=== PATIENT | female | born 1965 ===

== ENCOUNTER 2020-01-19 10:32 | Outpatient (REF) | payer OTHER, SELFPAY ==
--- NOTE | 2020-01-19 10:38 | EMG_ITS ---
HISTORY OF PRESENT ILLNESS: This is a 54-year-old woman with bilateral hand pain and numbness, left worse than right for about 2 years. She is on no medications. PHYSICAL EXAMINATION: On examination, she is alert and oriented with normal intellectual functions. Cranial nerves II through XII are normal. Muscle tone and strength are normal in all 4 extremities. No Tinel or Phalen sign. IMPRESSION: Rule out carpal tunnel syndrome. NERVE CONDUCTION EMG STUDY: Normal electrodiagnostic study of both upper extremities with no evidence of nerve entrapment or carpal tunnel syndrome. Normal EMG of the left C5 through T1 innervated muscles. MD KATT Dykes/SAUL / [id number]
== END 2020-01-19 10:33 | disposition home or self-care (01) ==
LOC: HO.NEURO 10:32
PROVIDERS: PCP Internal Medicine; Visit Provider Internal Medicine
DX: R20.0 Anesthesia of skin (principal)
CPT/HCPCS: 95860; 95886; 95913

== ENCOUNTER 2020-02-10 10:00 | Outpatient (RCR) | payer OTHER, SELFPAY ==
--- NOTE | 2020-03-06 10:03 | MHC.PT.DC ---
[facility] [place] Office [place] Office [place] Office [address] [place] [address] [phone] F: [phone] F: [phone] F: [phone] F: [phone] Physical Therapy Discharge Report Diagnosis: LEFT SI DYSFUNCTION Date of Surgery: Date of Evaluation: 10/07/19 Date of Discharge: 02/11/20 Treatments to Date: 18 Cancellations to Date: 4 No Shows to Date: 1 Discharge Status: Achieved Goals Improved Function Independent with HEP Discharge Summary: GIFTY MET ALL GOALS OF PT. 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 SHE IS DISCHARGED FROM OUR SERVICES AT THIS TIME. Electronically signed by: SHELL HILARIO PT, DPT Please sign and return to therapist. Thank you for your referral.
== END 2020-03-06 10:24 | disposition other institution (70) ==
LOC: HO.PT 10:00
PROVIDERS: PCP Internal Medicine; Visit Provider Internal Medicine
DX: M54.42 Lumbago with sciatica, left side (principal); G89.29 Other chronic pain
CPT/HCPCS: 97014; 97110; 97140; 97530

== ENCOUNTER 2020-03-02 09:32 | Outpatient (REF) | payer OTHER, SELFPAY ==
--- NOTE | 2020-03-02 10:00 | XR_ITS ---
EXAMINATION: XR SHOULDER, LEFT CLINICAL INFORMATION: Left shoulder pain. COMPARISON: None TECHNIQUE: AP external rotation, Grashey, scapular Y, and axillary views of the left shoulder. FINDINGS: Alignment is normal at the acromioclavicular and glenohumeral joints. There is a very small subchondral cyst of the distal clavicle. No significant degenerative change at the acromioclavicular joint. No hook-shaped acromion or acromiohumeral distance narrowing. The glenohumeral joint space is preserved. No glenohumeral arthritic deformity, fracture or subluxation. Minimal enthesophyte formation of the greater tuberosity the humerus. There is a 0.2 cm focus of calcification in the region of supraspinatus tendon insertion. On the AP view, 0.2 cm round focus of calcification projects over the superior aspect of the glenohumeral joint. The visualized portion of the lung is clear. XR/XR shoulder LT min 2V IMPRESSION: * No fracture or malalignment at the left shoulder. * Minimal enthesophyte formation of the greater tuberosity of the humerus. This can be a finding observed in association with rotator cuff tendinopathy. Also, there is a very small focus of calcium deposition in the region of the supraspinatus tendon insertion (minimal calcific tendinopathy is suspected).
--- NOTE | 2020-03-02 10:00 | XR_ITS ---
EXAMINATION: XR CERVICAL SPINE CLINICAL INFORMATION: Pain/cervicalgia COMPARISON: Cervical spine radiographs from 11/03/2015 TECHNIQUE: 3 views of the cervical spine were obtained. FINDINGS: The craniocervical junction is normal. The dens and atlantodental articulation are intact. The cervical vertebra have normal height. Alignment is normal. No fracture, subluxation or prevertebral soft tissue swelling. The spinal curvature is normal. At C5-C6, there is mild degenerative disc space narrowing and vertebral osteophyte formation. Otherwise, the disc spaces are well-preserved in the cervical spine. The visualized lung apices are normal. XR/XR cervical spine 3V IMPRESSION: * No fracture or malalignment of the cervical spine. * Mild disc degenerative change at C5-C6.
[2020-03-02 10:12] LABS: MANUAL DIFF FLAG NO
[2020-03-02 10:19] LABS: Basophils Absolute Auto 0.1 X10*3/uL (0.0-0.2); Basophils Percent Auto 0.8 % (0-2); Eosinophils Absolute Auto 0.5 X10*3/uL (0.0-0.4); Eosinophils Percent Auto 6.2 % (0-4); Hemoglobin 11.9 g/dl (12.0-16.0); Imm Gran Abs Auto 0.03 X10*3/uL (0.00-0.03); Imm Gran Pct Auto 0.4 % (0.0-0.4); Lymphocytes Absolute Auto 1.8 X10*3/uL (1.2-4.9); Lymphocytes Percent Auto 23.9 % (20-40); Mean Corpuscular HGB Conc 32.2 g/dl (31.0-35.0); Mean Corpuscular Hemoglobin 27.5 pg (27.0-33.0); Mean Corpuscular Volume 85.5 fL (80-98); Monocytes Absolute Auto 0.5 X10*3/uL (0.1-1.2); Monocytes Percent Auto 6.5 % (2-11); Neutrophils Absolute Auto 4.6 X10*3/uL (2.0-8.3); Neutrophils Percent Auto 62.2 % (45-73); Platelet Count 296 X10*3/uL (160-400); Red Blood Count 4.33 X10*6/uL (4.20-5.50); Red Cell Distribution Width 13.2 % (11.0-16.0); White Blood Count 7.4 X10*3/uL (4.8-10.8)
[2020-03-02 10:36] LABS: Alanine Aminotransferase 35 U/L (0-31); Albumin Level 4.6 g/dL (3.5-5.0); Alkaline Phosphatase 77 U/L (39-117); Anion Gap 12 (12-20); Aspartate Amino Transferase 21 U/L (5-31); Bilirubin Total 0.4 mg/dL (0.0-1.0); Blood Urea Nitrogen 13 mg/dL (9-16); C Reactive Protein 0.16 mg/dL (< or = 0.50); Calcium 9.1 mg/dL (8.4-10.2); Carbon Dioxide 29 mmol/L (22-29); Chloride 104 mmol/L (96-108); Cholesterol 221 mg/dL; Estimated Glomerular Filt Rate > 60; Glucose Fasting 96 mg/dL (60-99); HDL Cholesterol 67 mg/dL; Iron 75 mcg/dL (30-160); LDL Cholesterol Calculated 142 mg/dl; Percent Iron Saturation 22 % (15-50); Sodium 141 mmol/L (135-145); Total Iron Binding Capacity 348 mcg/dL (228-428); Total Protein 7.6 g/dL (6.5-8.0); Triglycerides 64 mg/dL; Unsaturated Iron Binding 273 ug/dL
[2020-03-02 10:39] LABS: Glucose Urine UA NEG (NEG); Leukocyte Esterase Urine NEG (NEG); Nitrite Urine NEG (NEG); PH 7.5 (5.0-8.0); Urine Blood NEG (NEG); Urine Ketones NEG (NEG); Urine Protein NEG (NEG-TRACE)
[2020-03-02 10:46] LABS: Appearance Urine CLEAR; Color Urine YELLOW
[2020-03-02 11:05] LABS: TSH reflex Free T4 2.96 mIU/mL (0.32-4.0)
[2020-03-02 11:09] LABS: Erythrocyte Sedimentation Rate 14 MM/HR (0-20)
== END 2020-03-02 09:33 | disposition home or self-care (01) ==
LOC: HO.LAB 09:32
PROVIDERS: PCP Internal Medicine; Visit Provider Internal Medicine
DX: Z00.00 Encounter for general adult medical examination without abnormal findings (principal); E78.00 Pure hypercholesterolemia, unspecified; D50.9 Iron deficiency anemia, unspecified; M54.2 Cervicalgia; M25.512 Pain in left shoulder; M19.042 Primary osteoarthritis, left hand; M19.041 Primary osteoarthritis, right hand; M54.16 Radiculopathy, lumbar region; M51.36 Other intervertebral disc degeneration, lumbar region
CPT/HCPCS: 36415; 72040; 73030; 80053; 80061; 81003; 83540; 84443; 85025; 85652; 86140

== ENCOUNTER → 2020-03-03 13:44 | Outpatient (BNVA) | payer OTHER, SELFPAY | PROVIDERS: PCP Internal Medicine; Referring Provider Internal Medicine; Visit Provider Student in an Organized Health Care Education/Training Program | DX: M19.042 Primary osteoarthritis, left hand (principal); M19.041 Primary osteoarthritis, right hand; R76.8 Other specified abnormal immunological findings in serum | CPT/HCPCS: 99202 ==

== ENCOUNTER 2020-03-06 10:20 | Outpatient (REF) | payer OTHER, SELFPAY ==
[2020-03-06 11:59] LABS: C Reactive Protein 0.12 mg/dL (< or = 0.50)
[2020-03-06 12:37] LABS: Erythrocyte Sedimentation Rate 14 MM/HR (0-20)
[2020-03-07 11:17] LABS: Thyroglobulin Antibodies 9 IU/mL (< or = 1)
[2020-03-07 14:03] LABS: Complement C3 115 mg/dL (83-193)
[2020-03-07 15:13] LABS: Cyclic Citrullinated Peptide <16 UNITS
[2020-03-07 17:33] LABS: Thyroid Peroxidase Antibodies 38 IU/mL (<9)
[2020-03-08 15:32] LABS: Anti DNA DS Antibody 4 IU/mL; Antibody to SS-A Antigen <1.0 NEG AI (<1.0 NEG); Antibody to SS-B Antigen <1.0 NEG AI (<1.0 NEG); SM/Ribonucleoprotein Ab <1.0 NEG AI (<1.0 NEG); Scleroderma 70 Antibody <1.0 NEG AI (<1.0 NEG); Smith Protein <1.0 NEG AI (<1.0 NEG)
== END 2020-03-06 10:21 | disposition home or self-care (01) ==
LOC: HO.LAB 10:20
PROVIDERS: PCP Internal Medicine; Visit Provider Student in an Organized Health Care Education/Training Program
DX: R76.8 Other specified abnormal immunological findings in serum (principal)
CPT/HCPCS: 36415; 85652; 86140; 86160; 86200; 86225; 86235; 86376; 86800

== ENCOUNTER 2020-03-13 17:04 | Outpatient (REF) | payer OTHER, SELFPAY | END 2020-03-13 17:05 | disposition home or self-care (01) | LOC: HO.LAB 17:04 | PROVIDERS: Visit Provider Internal Medicine | DX: Z20.828 Contact with and (suspected) exposure to other viral communicable diseases (principal) | CPT/HCPCS: C9803; U0003 ==

== ENCOUNTER → 2020-03-21 08:57 | Outpatient (BNVA) | payer OTHER, SELFPAY | PROVIDERS: PCP Internal Medicine; Referring Provider Internal Medicine; Visit Provider Student in an Organized Health Care Education/Training Program | DX: Z76.89 Persons encountering health services in other specified circumstances (principal) ==

== ENCOUNTER → 2020-04-05 10:35 | Outpatient (BNVA) | payer OTHER, SELFPAY | PROVIDERS: PCP Internal Medicine; Visit Provider Anesthesiology | DX: M19.041 Primary osteoarthritis, right hand (principal); M19.042 Primary osteoarthritis, left hand; M25.512 Pain in left shoulder; M79.18 Myalgia, other site; M47.812 Spondylosis without myelopathy or radiculopathy, cervical region; M46.1 Sacroiliitis, not elsewhere classified | CPT/HCPCS: 99202 ==

== ENCOUNTER 2020-04-14 08:48 | Outpatient (REF) | payer OTHER, SELFPAY ==
--- NOTE | 2020-04-14 08:50 | MR_ITS ---
EXAMINATION: MR CERVICAL SPINE WITHOUT CONTRAST CLINICAL INFORMATION: Spondylosis with myelopathy or radiculopathy. COMPARISON: Cervical spine 01/01/2020 TECHNIQUE: MRI of the cervical spine was obtained using routine sequences without contrast. FINDINGS: There is normal cervical lordosis. The vertebral heights, alignment, disc heights, and the disc signal are normal. The craniovertebral junction is normal. There is mild hypertrophic spurring at the C1-C2 alignment. The C2-C3 disc level appears unremarkable. At C3-C4 disc level, there is a minimal posterior disc protrusion/spondylosis complex indenting the ventral thecal sac but no herniation or spinal stenosis. There are minimal hypertrophic changes bilaterally with mild narrowing of left neural foramina. At C4-C5 disc level, there is a mild disc-osteophyte complex flattening the ventral thecal sac without spinal canal stenosis. The neural foramina are patent bilaterally. At C5-C6 disc level, there is a moderate bilateral disc-osteophyte/minimal bulge complex effacing the ventral thecal sac. There is mild bilateral narrowing of the neural foramina, left greater than right, from uncovertebral hypertrophic changes. At C6-C7 disc level, there is minimal bulge flattening the ventral thecal sac without spinal canal stenosis. The neural foramina are patent bilaterally. The C7-T1 disc level appears unremarkable. The cord signal, cord caliber and cervicomedullary junction are normal. The paravertebral soft tissues are normal. Both vertebral arteries and the carotid arteries appear patent based on flow void signal. MR/MR cervical spine wo con IMPRESSION: Mild disc bulge/osteophyte complex C4-C5, C5-C6 disc levels with mild effacement of ventral thecal sac at the C5-C6 disc level. There is bilateral narrowing of the neural foramina at these 2 disc levels and mild narrowing of the left neural foramina at C3-C4 disc level from uncovertebral hypertrophic changes. There is no abnormality seen in the cord or the cervicomedullary junction.
== END 2020-04-14 08:49 | disposition home or self-care (01) ==
LOC: HO.MRI 08:48
PROVIDERS: Visit Provider Anesthesiology
DX: M47.812 Spondylosis without myelopathy or radiculopathy, cervical region (principal)
CPT/HCPCS: 72141

== ENCOUNTER 2020-04-25 07:39 | Outpatient (REF) | payer OTHER, SELFPAY | END 2020-04-25 07:40 | disposition home or self-care (01) | LOC: HO.RADIR 07:39 | PROVIDERS: Visit Provider Anesthesiology | DX: Z13.89 Encounter for screening for other disorder (principal) ==

== ENCOUNTER 2020-05-02 06:59 | Outpatient (REF) | payer OTHER, SELFPAY | END 2020-05-02 07:00 | disposition home or self-care (01) | LOC: HO.RADIR 06:59 | PROVIDERS: Visit Provider Anesthesiology | DX: Z13.89 Encounter for screening for other disorder (principal) ==

== ENCOUNTER → 2020-05-03 08:44 | Outpatient (BNVA) | payer OTHER, SELFPAY | PROVIDERS: PCP Internal Medicine; Visit Provider Anesthesiology | DX: M19.041 Primary osteoarthritis, right hand (principal); M19.042 Primary osteoarthritis, left hand; M25.512 Pain in left shoulder; M79.18 Myalgia, other site; M47.812 Spondylosis without myelopathy or radiculopathy, cervical region; M46.1 Sacroiliitis, not elsewhere classified | CPT/HCPCS: 20552; 99212; J3300 ==

== ENCOUNTER → 2020-06-15 11:26 | Outpatient (BNVA) | payer OTHER, SELFPAY | PROVIDERS: PCP Internal Medicine; Visit Provider Anesthesiology | DX: M47.812 Spondylosis without myelopathy or radiculopathy, cervical region (principal); M19.041 Primary osteoarthritis, right hand; M19.042 Primary osteoarthritis, left hand; M25.512 Pain in left shoulder; M79.18 Myalgia, other site; M46.1 Sacroiliitis, not elsewhere classified; Z79.899 Other long term (current) drug therapy | CPT/HCPCS: 99212 ==

== ENCOUNTER 2020-06-20 10:00 | Outpatient (RCR) | payer OTHER, SELFPAY ==
--- NOTE | 2020-05-11 11:22 | MHC.PT.EP ---
[facility] [place] Office [place] Office [place] Office [address] [place] [address] [phone] F: [phone] F: [phone] F: [phone] F: [phone] Physical Therapy Plan of Care Date of Evaluation: 05/11/20 Date of Surgery: Diagnosis: left trapezius muscle on left side Assessment: The patient is presenting with limited cervical mobility, shoulder mobility and reduced shoulder strength consistent with a posterolateral derangement. Pt has recent MRI imaging that also shows a moderate osteophyte/disc complex causing neural foraminal narrowing. The patient currently shows poor sitting posture, and reports looking down for extended periods during cooking or looking at phone. Pt was educated on improving sitting posture and limiting looking down. Frequency and Duration: The patient will be seen 2x/week x 4 weeks Short Term Goals: 2 weeks 1.Pt to able to demonstrate proper sitting posture with the use of a lumbar roll to decrease aggravating factors. 2.Pt to be able to demonstrate proper posture for common leisure activities such as crocheting and phone/tablet use. 3.For the patient to demonstrate proper upright sitting posture with use of the lumbar roll to improve compliance and carryover. Longterm Goals: 1. Pt to be able to return to normal PLOF without limiting pain. 2. Pt to be able to return to overhead reaching without pain or limitation. 3. Pt to be able to manage her pain with selected exercise and stretching regime. Treatment Plan: Modalities to reduce pain, spasms and effusion. Manual therapy to restore motion and function. Therapeutic exercise to improve strength and flexibility. Neuromuscular re-education for posture and balance. Therapeutic activities to return to functional activities of daily living. Electronically signed by: Lenka Delong PT DPT Please sign and return to therapist. Thank you for your referral.
--- NOTE | 2020-06-20 12:33 | MHC.PT.DC ---
[facility] [place] Office [place] Office [place] Office [address] [place] [address] [phone] F: [phone] F: [phone] F: [phone] F: [phone] Physical Therapy Discharge Report Diagnosis: left trapezius muscle on left side Date of Surgery: Date of Evaluation: 05/11/20 Date of Discharge: 06/20/20 Treatments to Date: 9 Cancellations to Date: No Shows to Date: Discharge Status: Achieved Goals Improved Function Independent with HEP Discharge Summary: pt tolerated full program without added pain. The patient is independent with her HEP and she reports, I do it all at home She had symmetrical shoulder ROM that was WNL and her cervical ROM was greater than 60 degrees bilaterally. She has reached maximum potential in therapy and will transition to a HEP. Electronically signed by: Lenka Delong PT DPT Please sign and return to therapist. Thank you for your referral.
== END 2020-07-21 08:00 | disposition home or self-care (01) ==
LOC: HO.PT 10:00
PROVIDERS: PCP Internal Medicine; Visit Provider Anesthesiology
DX: M79.18 Myalgia, other site (principal)
CPT/HCPCS: 97110; 97112; 97162

== ENCOUNTER 2020-07-25 06:07 | Outpatient (REF) | payer OTHER, SELFPAY ==
--- NOTE | ~2020-07-25 | FL_ITS ---
EXAMINATION: XR FLUOROSCOPY WITH IMAGES CLINICAL INFORMATION: Sacroiliitis. COMPARISON: None. TECHNIQUE: Fluoroscopy performed by Shayla Lewis NP. Fluoroscopy time: 0.1 minutes DAP: 1.8 Gycm2 Images: 1 FINDINGS: Single fluoroscopic image demonstrates needle placement over the left lower sacroiliac joint. FL/FL guidance in treatment room IMPRESSION: Fluoroscopy guidance for left sacroiliac joint injection.
== END 2020-07-25 06:08 | disposition home or self-care (01) ==
LOC: HO.RADIR 06:07
PROVIDERS: Visit Provider Anesthesiology
DX: M46.1 Sacroiliitis, not elsewhere classified (principal)
CPT/HCPCS: 27096; J3300; Q9967

== ENCOUNTER 2020-08-23 09:24 | Outpatient (REF) | payer OTHER, SELFPAY ==
[2020-08-23 09:52] LABS: MANUAL DIFF FLAG NO
[2020-08-23 10:03] LABS: Basophils Absolute Auto 0.1 X10*3/uL (0.0-0.2); Eosinophils Absolute Auto 0.4 X10*3/uL (0.0-0.4); Hematocrit 36.7 % (37-47); Hemoglobin 11.6 g/dl (12.0-16.0); Imm Gran Abs Auto 0.02 X10*3/uL (0.00-0.03); Imm Gran Pct Auto 0.3 % (0.0-0.4); Lymphocytes Absolute Auto 1.6 X10*3/uL (1.2-4.9); Lymphocytes Percent Auto 26.9 % (20-40); Mean Corpuscular HGB Conc 31.6 g/dl (31.0-35.0); Mean Corpuscular Hemoglobin 27.2 pg (27.0-33.0); Mean Corpuscular Volume 85.9 fL (80-98); Mean Platelet Volume 10.1 fL (9.4-12.3); Monocytes Absolute Auto 0.4 X10*3/uL (0.1-1.2); Neutrophils Absolute Auto 3.5 X10*3/uL (2.0-8.3); Neutrophils Percent Auto 57.8 % (45-73); Platelet Count 252 X10*3/uL (160-400); Red Blood Count 4.27 X10*6/uL (4.20-5.50); Red Cell Distribution Width 13.2 % (11.0-16.0)
[2020-08-23 10:36] LABS: Alanine Aminotransferase 20 U/L (0-31); Albumin Level 4.3 g/dL (3.5-5.0); Alkaline Phosphatase 66 U/L (39-117); Anion Gap 12 (12-20); Aspartate Amino Transferase 16 U/L (5-31); Bilirubin Total 0.6 mg/dL (0.0-1.0); Blood Urea Nitrogen 14 mg/dL (9-16); Calcium 9.3 mg/dL (8.4-10.2); Carbon Dioxide 29 mmol/L (22-29); Chloride 104 mmol/L (96-108); Cholesterol 206 mg/dL; Estimated Glomerular Filt Rate > 60; Glucose Fasting 110 mg/dL (60-99); HDL Cholesterol 58 mg/dL; Iron 60 mcg/dL (30-160); LDL Cholesterol Calculated 131 mg/dl; Percent Iron Saturation 20 % (15-50); Potassium 4.5 mmol/L (3.3-5.1); Sodium 140 mmol/L (135-145); Total Iron Binding Capacity 299 mcg/dL (228-428); Total Protein 7.1 g/dL (6.5-8.0); Triglycerides 89 mg/dL; Unsaturated Iron Binding 239 ug/dL
[2020-08-23 10:51] LABS: Glucose Urine UA NEG (NEG); Leukocyte Esterase Urine NEG (NEG); Nitrite Urine NEG (NEG); Specific Gravity - Urine 1.015 (1.005-1.025); Urine Blood NEG (NEG); Urine Ketones NEG (NEG); Urine Protein NEG (NEG-TRACE)
[2020-08-23 10:56] LABS: Appearance Urine CLEAR; Color Urine YELLOW; TSH reflex Free T4 3.13 uIU/mL (0.32-4.0)
== END 2020-08-23 09:25 | disposition home or self-care (01) ==
LOC: HO.LAB 09:24
PROVIDERS: PCP Internal Medicine; Visit Provider Internal Medicine
DX: D64.9 Anemia, unspecified (principal); E78.00 Pure hypercholesterolemia, unspecified; E66.3 Overweight; M51.36 Other intervertebral disc degeneration, lumbar region
CPT/HCPCS: 36415; 80053; 80061; 81003; 83540; 84443; 85025

== ENCOUNTER → 2020-08-28 10:06 | Outpatient (BNVA) | payer OTHER, SELFPAY | PROVIDERS: PCP Internal Medicine; Visit Provider Anesthesiology ==

== ENCOUNTER 2020-08-29 07:31 | Outpatient (REF) | payer OTHER, SELFPAY ==
--- NOTE | ~2020-08-29 | FL_ITS ---
EXAMINATION: XR FLUOROSCOPY WITH IMAGES CLINICAL INFORMATION: Cervical spondylosis without myelopathy or radiculopathy. COMPARISON: Radiographs dated 01/01/2020. TECHNIQUE: Fluoroscopy performed by Dr. Tommy Burton. Fluoroscopy time: 0.3 minutes DAP: 1.72 Gycm2 Images: 4 FINDINGS: The submitted images show 4 injection needles in the upper and mid lateral left cervical region. There is injection of iodinated myelography contrast, with transforaminal extension. FL/FL guidance in treatment room IMPRESSION: Intraoperative fluoroscopic guidance is performed during left cervical myelography. Please see Operative Report for full procedural details.
== END 2020-08-29 07:32 | disposition home or self-care (01) ==
LOC: HO.RADIR 07:31
PROVIDERS: Visit Provider Anesthesiology
DX: M47.812 Spondylosis without myelopathy or radiculopathy, cervical region (principal); M46.1 Sacroiliitis, not elsewhere classified; M79.18 Myalgia, other site; M19.041 Primary osteoarthritis, right hand; M19.042 Primary osteoarthritis, left hand
CPT/HCPCS: 64490; 64491; 64492; J3300; Q9967

== ENCOUNTER → 2020-10-02 10:08 | Outpatient (BNVA) | payer OTHER, SELFPAY | PROVIDERS: PCP Internal Medicine; Visit Provider Anesthesiology | DX: M47.812 Spondylosis without myelopathy or radiculopathy, cervical region (principal); M19.041 Primary osteoarthritis, right hand; M19.042 Primary osteoarthritis, left hand; M25.212 Flail joint, left shoulder; M79.18 Myalgia, other site; M46.1 Sacroiliitis, not elsewhere classified | CPT/HCPCS: 99212 ==

== ENCOUNTER → 2020-10-17 10:53 | Outpatient (BNVA) | payer OTHER, SELFPAY | PROVIDERS: PCP Internal Medicine; Visit Provider Internal Medicine Pulmonary Disease | DX: J45.50 Severe persistent asthma, uncomplicated (principal); Z91.09 Other allergy status, other than to drugs and biological substances | CPT/HCPCS: 99202 ==

== ENCOUNTER 2020-11-03 10:03 | Outpatient (REF) | payer OTHER, SELFPAY ==
[2020-11-06 19:16] LABS: Immunoglobulin E 19 kU/L (<OR=114)
== END 2020-11-03 10:04 | disposition home or self-care (01) ==
LOC: HO.LAB 10:03
PROVIDERS: PCP Internal Medicine; Visit Provider Internal Medicine Pulmonary Disease
DX: J45.40 Moderate persistent asthma, uncomplicated (principal); R07.89 Other chest pain; Z79.899 Other long term (current) drug therapy; Z91.09 Other allergy status, other than to drugs and biological substances
CPT/HCPCS: 36415; 82785; 99212

== ENCOUNTER 2020-11-28 08:55 | Outpatient (REF) | payer OTHER, SELFPAY ==
--- NOTE | 2020-11-28 15:27 | PFT_ITS ---
INDICATION: Asthma. SPIROMETRY: The FEV1 to FVC of 84% with an FEV1 of 3.6 L, which is 145% predicted and an FVC of 4.28 L, which is 138% predicted. No significant response to bronchodilators noted. Maximum voluntary ventilation 136% predicted. LUNG VOLUMES: Total lung capacity 114% predicted. Expiratory reserve volume 125% predicted. DIFFUSION CAPACITY: DLCO 102% predicted. COMPARISONS: None. INTERPRETATION: No obstructive nor restrictive ventilatory defects identified. No significant response to bronchodilators noted. Normal lung volumes and normal diffusion capacity. If asthma is in the differential, methacholine challenge may be helpful in assessing for hyper-reactive airways, otherwise clinical correlation warranted. Fabiano Zacarias MD MR/MODL / [id number]
== END 2020-11-28 08:56 | disposition home or self-care (01) ==
LOC: HO.RESP 08:55
PROVIDERS: PCP Internal Medicine; Visit Provider Internal Medicine Pulmonary Disease
DX: J45.50 Severe persistent asthma, uncomplicated (principal)
CPT/HCPCS: 94060; 94727; 94729

== ENCOUNTER 2020-11-30 10:49 | Outpatient (REF) | payer OTHER, SELFPAY | END 2020-11-30 10:50 | disposition home or self-care (01) | LOC: HO.MDS 10:49 | PROVIDERS: Visit Provider Internal Medicine Pulmonary Disease | DX: J45.50 Severe persistent asthma, uncomplicated (principal) | CPT/HCPCS: 96372; J0517 ==

== ENCOUNTER 2020-12-04 12:58 | Outpatient (REF) | payer OTHER, SELFPAY ==
--- NOTE | ~2020-12-04 | XR_ITS ---
EXAMINATION: 1. RADIOGRAPHS RIGHT HAND 2. RADIOGRAPHS LEFT HAND CLINICAL INFORMATION: Other specified abnormal immunologic findings serum. COMPARISON: Bilateral hand x-rays October 14, 2019 TECHNIQUE: 3 views of each hand were obtained FINDINGS: Right hand: Visualized portion of the distal radius and ulna demonstrate no fracture. Carpal rows are maintained. No carpal, metacarpal or phalangeal fracture. Some minimal scattered degenerative changes of the IP joints are again noted which appear relatively similar in prominence to imaging from one year ago. No focal soft tissue swelling is present. Joint spaces are maintained. Left hand: Visualized portion of the distal radius and ulna demonstrate no fracture. Carpal rows are well aligned. No carpal, metacarpal or phalangeal fracture. Some minimal scattered IP degenerative changes are again noted and appear similar in prominence. Joint spaces are well-maintained diffusely. No focal soft tissue swelling. XR/XR hand LT min 3V IMPRESSION: Minimal degenerative changes of both hands are again noted. Degenerative changes are similar in prominence to imaging from one year ago.
--- NOTE | ~2020-12-04 | XR_ITS ---
EXAMINATION: XR CHEST CLINICAL INFORMATION: Severe persistent asthma COMPARISON: Chest x-ray August 14, 2012 TECHNIQUE: 2 views of the chest were obtained. FINDINGS: Cardiac silhouette is normal in size. Lungs are well aerated. There is no lobar consolidation. No pleural effusion or pneumothorax. Mild degenerative changes of the thoracic spine. XR/XR chest 2V IMPRESSION: No acute pulmonary pathology.
--- NOTE | ~2020-12-04 | XR_ITS ---
EXAMINATION: 1. RADIOGRAPHS RIGHT HAND 2. RADIOGRAPHS LEFT HAND CLINICAL INFORMATION: Other specified abnormal immunologic findings serum. COMPARISON: Bilateral hand x-rays October 14, 2019 TECHNIQUE: 3 views of each hand were obtained FINDINGS: Right hand: Visualized portion of the distal radius and ulna demonstrate no fracture. Carpal rows are maintained. No carpal, metacarpal or phalangeal fracture. Some minimal scattered degenerative changes of the IP joints are again noted which appear relatively similar in prominence to imaging from one year ago. No focal soft tissue swelling is present. Joint spaces are maintained. Left hand: Visualized portion of the distal radius and ulna demonstrate no fracture. Carpal rows are well aligned. No carpal, metacarpal or phalangeal fracture. Some minimal scattered IP degenerative changes are again noted and appear similar in prominence. Joint spaces are well-maintained diffusely. No focal soft tissue swelling. XR/XR hand RT min 3V IMPRESSION: Minimal degenerative changes of both hands are again noted. Degenerative changes are similar in prominence to imaging from one year ago.
[2020-12-04 14:25] LABS: MANUAL DIFF FLAG NO
[2020-12-04 14:35] LABS: Hematocrit 34.6 % (37-47); Imm Gran Abs Auto 0.01 X10*3/uL (0.00-0.03); Imm Gran Pct Auto 0.2 % (0.0-0.4); Mean Corpuscular Volume 85.4 fL (80-98); Red Blood Count 4.05 X10*6/uL (4.20-5.50)
[2020-12-04 14:48] LABS: Lymphocytes Absolute Auto 1.7 X10*3/uL (1.2-4.9); Lymphocytes Percent Auto 36.9 % (20-40); Mean Corpuscular HGB Conc 31.8 g/dl (31.0-35.0); Mean Corpuscular Hemoglobin 27.2 pg (27.0-33.0); Mean Platelet Volume 10.6 fL (9.4-12.3); Monocytes Absolute Auto 0.4 X10*3/uL (0.1-1.2); Monocytes Percent Auto 7.9 % (2-11); Neutrophils Absolute Auto 2.6 X10*3/uL (2.0-8.3); Platelet Count 228 X10*3/uL (160-400); Red Cell Distribution Width 12.8 % (11.0-16.0); White Blood Count 4.7 X10*3/uL (4.8-10.8)
[2020-12-04 15:22] LABS: Erythrocyte Sedimentation Rate 16 MM/HR (0-20)
[2020-12-06 13:37] LABS: IgA <5 mg/dL (47-310); IgG 1592 mg/dL (600-1640); IgM 77 mg/dL (50-300)
[2020-12-07 21:22] LABS: Immunoglobulin G Subclass 1 754 mg/dL (382-929); Immunoglobulin G Subclass 2 578 mg/dL (241-700); Immunoglobulin G Subclass 3 152 mg/dL (22-178); Immunoglobulin G Subclass 4 19.6 mg/dL (4-86); Immunoglobulin G Total 1530 mg/dL (600-1640)
== END 2020-12-04 12:59 | disposition home or self-care (01) ==
LOC: HO.XRAY 12:58
PROVIDERS: PCP Internal Medicine; Visit Provider Hospitalist
DX: J45.51 Severe persistent asthma with (acute) exacerbation (principal); J40 Bronchitis, not specified as acute or chronic; R76.8 Other specified abnormal immunological findings in serum
CPT/HCPCS: 36415; 71046; 73130; 82784; 85025; 85652; 99212

== ENCOUNTER 2020-12-26 06:22 | Outpatient (REF) | payer OTHER, SELFPAY | END 2020-12-26 06:23 | disposition home or self-care (01) | LOC: HO.RADIR 06:22 | PROVIDERS: Visit Provider Anesthesiology | DX: M47.812 Spondylosis without myelopathy or radiculopathy, cervical region (principal); M46.1 Sacroiliitis, not elsewhere classified; M25.512 Pain in left shoulder; M79.18 Myalgia, other site; M19.041 Primary osteoarthritis, right hand; M19.042 Primary osteoarthritis, left hand | CPT/HCPCS: 64490; 64491; J3300; Q9967 ==

== ENCOUNTER → 2020-12-27 11:46 | Outpatient (BNVA) | payer OTHER, SELFPAY | PROVIDERS: PCP Internal Medicine; Visit Provider Internal Medicine Pulmonary Disease | DX: J45.51 Severe persistent asthma with (acute) exacerbation (principal); D80.2 Selective deficiency of immunoglobulin A [IgA] | CPT/HCPCS: 99212 ==

== ENCOUNTER 2020-12-28 10:32 | Outpatient (REF) | payer OTHER, SELFPAY | END 2020-12-28 10:33 | disposition home or self-care (01) | LOC: HO.MDS 10:32 | PROVIDERS: PCP Internal Medicine; Visit Provider Internal Medicine Pulmonary Disease | DX: J45.50 Severe persistent asthma, uncomplicated (principal) | CPT/HCPCS: 96372; J0517 ==

== ENCOUNTER → 2021-01-24 11:47 | Outpatient (BNVA) | payer OTHER, SELFPAY | PROVIDERS: PCP Internal Medicine; Visit Provider Internal Medicine Pulmonary Disease | DX: J45.50 Severe persistent asthma, uncomplicated (principal); D80.2 Selective deficiency of immunoglobulin A [IgA]; Z91.09 Other allergy status, other than to drugs and biological substances | CPT/HCPCS: 99212 ==

== ENCOUNTER 2021-01-25 09:00 | Outpatient (REF) | payer OTHER, SELFPAY | END 2021-01-25 09:01 | disposition home or self-care (01) | LOC: HO.MDS 09:00 | PROVIDERS: PCP Internal Medicine; Visit Provider Internal Medicine Pulmonary Disease | DX: J45.50 Severe persistent asthma, uncomplicated (principal) | CPT/HCPCS: 96372; J0517 ==

== ENCOUNTER → 2021-01-31 10:49 | Outpatient (BNVA) | payer OTHER, SELFPAY | PROVIDERS: PCP Internal Medicine; Visit Provider Anesthesiology | DX: M19.041 Primary osteoarthritis, right hand (principal); M19.042 Primary osteoarthritis, left hand; M25.512 Pain in left shoulder; M79.18 Myalgia, other site; M47.812 Spondylosis without myelopathy or radiculopathy, cervical region; M46.1 Sacroiliitis, not elsewhere classified; G89.4 Chronic pain syndrome | CPT/HCPCS: 99212 ==

== ENCOUNTER 2021-02-20 08:59 | Outpatient (REF) | payer OTHER, SELFPAY | END 2021-02-20 09:00 | disposition home or self-care (01) | LOC: HO.MDS 08:59 | PROVIDERS: PCP Internal Medicine; Visit Provider Internal Medicine Pulmonary Disease | DX: J45.50 Severe persistent asthma, uncomplicated (principal) | CPT/HCPCS: 96372; J0517 ==

== ENCOUNTER 2021-04-17 08:58 | Outpatient (REF) | payer OTHER, SELFPAY | END 2021-04-17 08:59 | disposition home or self-care (01) | LOC: HO.MDS 08:58 | PROVIDERS: PCP Internal Medicine; Visit Provider Internal Medicine Pulmonary Disease | DX: J45.51 Severe persistent asthma with (acute) exacerbation (principal); J40 Bronchitis, not specified as acute or chronic; D80.2 Selective deficiency of immunoglobulin A [IgA]; E78.00 Pure hypercholesterolemia, unspecified; Z91.09 Other allergy status, other than to drugs and biological substances; Z79.899 Other long term (current) drug therapy | CPT/HCPCS: 96372; 99212; J0517 ==

== ENCOUNTER 2021-04-24 10:16 | Outpatient (REF) | payer OTHER, SELFPAY ==
[2021-04-24 10:37] LABS: MANUAL DIFF FLAG NO
[2021-04-24 10:48] LABS: Hematocrit 36.1 % (37.0-47.0); Hemoglobin 11.3 g/dl (12.0-16.0); Imm Gran Abs Auto 0.02 X10*3/uL (0.00-0.03); Imm Gran Pct Auto 0.4 % (0.0-0.4); Lymphocytes Absolute Auto 1.8 X10*3/uL (1.2-4.9); Lymphocytes Percent Auto 36.4 % (20-40); Mean Corpuscular HGB Conc 31.3 g/dl (31.0-35.0); Mean Corpuscular Hemoglobin 26.9 pg (27.0-33.0); Mean Platelet Volume 10.2 fL (9.4-12.3); Monocytes Absolute Auto 0.4 X10*3/uL (0.1-1.2); Monocytes Percent Auto 7.8 % (2-11); Neutrophils Absolute Auto 2.7 x10*3/uL (2.0-8.3); Neutrophils Percent Auto 55.4 % (45-73); Platelet Count 237 X10*3/uL (160-400); Red Cell Distribution Width 12.6 % (11.0-16.0); White Blood Count 4.9 X10*3/uL (4.8-10.8)
[2021-04-24 11:15] LABS: Appearance Urine CLEAR; Color Urine STRAW; Glucose Urine UA NEG (NEG); Leukocyte Esterase Urine NEG (NEG); Nitrite Urine NEG (NEG); Urine Blood NEG (NEG); Urine Ketones NEG (NEG); Urine Protein NEG (NEG-TRACE)
[2021-04-24 11:28] LABS: Alanine Aminotransferase 19 U/L (0-31); Albumin Level 4.3 g/dL (3.5-5.0); Alkaline Phosphatase 66 U/L (39-117); Anion Gap 10 (12-20); Aspartate Amino Transferase 16 U/L (5-31); Bilirubin Total 0.5 mg/dL (0.0-1.0); Blood Urea Nitrogen 10 mg/dL (9-16); Calcium 9.4 mg/dL (8.4-10.2); Carbon Dioxide 29 mmol/L (22-29); Chloride 105 mmol/L (96-108); Cholesterol 186 mg/dL; Estimated Glomerular Filt Rate > 60; Glucose Fasting 99 mg/dL (60-99); HDL Cholesterol 47 mg/dL; LDL Cholesterol Calculated 119 mg/dl; Potassium 4.3 mmol/L (3.3-5.1); Sodium 140 mmol/L (135-145); Total Protein 7.2 g/dL (6.5-8.0); Triglycerides 102 mg/dL
[2021-04-24 11:49] LABS: TSH reflex Free T4 5.11 uIU/mL (0.32-4.0)
== END 2021-04-24 10:17 | disposition home or self-care (01) ==
LOC: HO.LAB 10:16
PROVIDERS: PCP Internal Medicine; Visit Provider Internal Medicine
DX: I10 Essential (primary) hypertension (principal); E55.9 Vitamin D deficiency, unspecified; E78.00 Pure hypercholesterolemia, unspecified
CPT/HCPCS: 36415; 80053; 80061; 81003; 82306; 84439; 84443; 85025

== ENCOUNTER 2021-05-04 09:26 | Outpatient (REF) | payer OTHER, SELFPAY ==
--- NOTE | ~2021-05-04 | XR_ITS ---
EXAMINATION: XR CHEST CLINICAL INFORMATION: Selective deficiency of IgA COMPARISON: 12/04/2020 TECHNIQUE: 2 views of the chest were obtained. FINDINGS: Normal symmetric lung volumes. No parenchymal consolidation. No pleural effusion. No pneumothorax. Cardiomediastinal silhouette and pulmonary vascularity are within normal limits. Aorta is atherosclerotic. No acute osseous abnormalities. XR/XR chest 2V IMPRESSION: No acute pulmonary parenchymal abnormalities.
[2021-05-04 10:48] LABS: MANUAL DIFF FLAG NO
[2021-05-04 11:51] LABS: Basophils Percent Auto 0.2 % (0-2); Hematocrit 38.4 % (37.0-47.0); Hemoglobin 12.2 g/dl (12.0-16.0); Imm Gran Abs Auto 0.04 X10*3/uL (0.00-0.03); Imm Gran Pct Auto 0.6 % (0.0-0.4); Lymphocytes Percent Auto 31.4 % (20-40); Mean Corpuscular HGB Conc 31.8 g/dl (31.0-35.0); Mean Corpuscular Hemoglobin 27.1 pg (27.0-33.0); Mean Corpuscular Volume 85.3 fL (80.0-98.0); Mean Platelet Volume 10.3 fL (9.4-12.3); Monocytes Absolute Auto 0.4 X10*3/uL (0.1-1.2); Monocytes Percent Auto 5.5 % (2-11); Neutrophils Absolute Auto 3.9 x10*3/uL (2.0-8.3); Neutrophils Percent Auto 62.3 % (45-73); Platelet Count 293 X10*3/uL (160-400); White Blood Count 6.3 X10*3/uL (4.8-10.8)
[2021-05-04 11:53] LABS: D Dimer High Sensitivity 277 NG/ML
[2021-05-04 12:17] LABS: Anion Gap 14 (12-20); Blood Urea Nitrogen 9 mg/dL (9-16); Calcium 9.8 mg/dL (8.4-10.2); Carbon Dioxide 25 mmol/L (22-29); Chloride 104 mmol/L (96-108); Estimated Glomerular Filt Rate > 60; Glucose Random 103 mg/dL (60-115); Sodium 139 mmol/L (135-145)
[2021-05-04 12:33] LABS: Erythrocyte Sedimentation Rate 16 MM/HR (0-20)
[2021-05-07 13:31] LABS: Immunoglobulin A <5 mg/dL (47-310)
== END 2021-05-04 09:27 | disposition home or self-care (01) ==
LOC: HO.LAB 09:26
PROVIDERS: PCP Internal Medicine; Visit Provider Hospitalist
DX: D80.2 Selective deficiency of immunoglobulin A [IgA] (principal); J45.50 Severe persistent asthma, uncomplicated; R07.81 Pleurodynia; J40 Bronchitis, not specified as acute or chronic
CPT/HCPCS: 36415; 71046; 80048; 82784; 85025; 85379; 85652; 99212

== ENCOUNTER 2021-05-08 11:12 | Outpatient (REF) | payer OTHER, SELFPAY ==
--- NOTE | ~2021-05-08 | XR_ITS ---
EXAMINATION: XR SCAPULA, LEFT CLINICAL INFORMATION: COMPARISON: Shoulder radiographs 03/02/2020 TECHNIQUE: Two views of the left scapula. FINDINGS: The bones and soft tissues are normal. No scapular fracture. Glenohumeral and acromioclavicular alignment is normal. XR/XR scapula LT IMPRESSION: Normal left scapula.
== END 2021-05-08 11:13 | disposition home or self-care (01) ==
LOC: HO.XRAY 11:12
PROVIDERS: PCP Internal Medicine; Visit Provider Internal Medicine
DX: M89.8X1 Other specified disorders of bone, shoulder (principal); G89.29 Other chronic pain
CPT/HCPCS: 73010

== ENCOUNTER 2021-05-11 15:47 | Outpatient (REF) | payer OTHER, SELFPAY ==
--- NOTE | ~2021-05-11 | CT_ITS ---
EXAMINATION: CT ANGIOGRAM OF THE CHEST WITH AND WITHOUT CONTRAST (CT PULMONARY ANGIOGRAM FOR PE) CLINICAL INFORMATION: Pleurodynia. COMPARISON: Chest radiograph dated from 05/04/2021. TECHNIQUE: Prior to contrast administration, noncontrast localization images were obtained. Subsequently, multidetector volumetric imaging was performed from the thoracic inlet to below the diaphragms following the administration of 65 mL Omnipaque 350 intravenous contrast. No contrast reaction reported Sagittal, coronal, and MIP oblique sagittal reformatted images were obtained on the CT workstation, uploaded to PACS, and reviewed. This CT examination was performed using dose optimization techniques as appropriate, variously including the following: *Automated exposure control *Adjustment of mA and/or kV according to patient size (this includes techniques or standardized protocols for targeted exams where dose is matched to indication/reason for exam; i.e. extremities or head) *Use of iterative reconstruction technique Total exam dose-length product 92 mGy-cm FINDINGS: QUALITY OF STUDY/CONTRAST BOLUS: Satisfactory. PULMONARY ARTERIES: No central or segmental pulmonary emboli. THORACIC AORTA: No aneurysm or dissection. LUNG: No focal airspace opacities. No significant interlobular septal thickening, reticulation or groundglass disease. There is a 0.3 cm pulmonary nodule in the right middle lobe (11:327). There is a 0.3 cm pulmonary nodule medially in the right upper lobe (11:192). There is a subcentimeter calcified granuloma in the left lower lobe (11:376). The airways are patent. PLEURA: No pleural effusion or pneumothorax. MEDIASTINUM: Normal heart size. No pericardial effusion. No hilar or mediastinal lymphadenopathy. No evidence of septal bowing or right heart strain. CHEST WALL/AXILLA: No axillary or internal mammary lymphadenopathy. OSSEOUS STRUCTURES: No acute or suspicious osseous abnormality. UPPER ABDOMEN: Unremarkable. No reflux of contrast into the hepatic veins to suggest elevated right heart pressures. CT/CT angio chest PE protocol IMPRESSION: No evidence of pulmonary embolism. No increased right-sided heart pressures. No focal airspace opacities. Sub-3 mm pulmonary nodules. Assuming patient has no history of malignancy, recommend follow-up per Fleischner Society recommendations. According to the UPDATED 2017 Fleischner Society recommendations, the advised followup imaging for solid nodules < 6 mm is: LOW RISK PATIENT: No routine follow up. HIGH RISK PATIENT: Optional CT at 12 months. VTE: negative
[2021-05-11] MEDS: iohexoL 350 MG/ML 100 ML INFUS..BTL 75 ML IV (16:25)
== END 2021-05-11 15:48 | disposition home or self-care (01) ==
LOC: HO.CT 15:47
PROVIDERS: PCP Internal Medicine; Visit Provider Hospitalist
DX: R07.81 Pleurodynia (principal); R06.00 Dyspnea, unspecified; R78.89 Finding of other specified substances, not normally found in blood
CPT/HCPCS: 71275; Q9967

== ENCOUNTER 2021-05-14 10:11 | Outpatient (REF) | payer OTHER, SELFPAY ==
--- NOTE | ~2021-05-14 | MM_ITS ---
EXAMINATION: MM SCREENING DIGITAL BREAST TOMOSYNTHESIS, BILATERAL CLINICAL INFORMATION: Screening. Asymptomatic. The lifetime risk of breast cancer based on the Tyrer-Cuzick Model is 5%. COMPARISON: Mammography: 06/20/2018, 11/16/2015, 04/22/2014 TECHNIQUE: Digital breast tomosynthesis is performed in both the craniocaudal and mediolateral oblique views along with computer-aided detection (CAD). Synthesized 2D images are generated from the tomosynthesis. FINDINGS: There are scattered areas of fibroglandular density (ACR BI-RADS breast composition Category b). There are no significant masses, abnormal calcifications, or other abnormalities. Parenchymal pattern is similar to prior studies. There are no significant changes. MM/MM tomosynthesis screening BI IMPRESSION: No mammographic evidence of malignancy. ASSESSMENT: BI-RADS 1: Negative RECOMMENDATION: Routine annual mammography screening. This patient's information was entered into a reminder system with a target due date for their next mammogram.
== END 2021-05-14 10:12 | disposition home or self-care (01) ==
LOC: HO.MAMMO 10:11
PROVIDERS: Visit Provider Internal Medicine
DX: Z12.31 Encounter for screening mammogram for malignant neoplasm of breast (principal)
CPT/HCPCS: 77063; 77067

== ENCOUNTER 2021-05-15 08:26 | Outpatient (REF) | payer OTHER, SELFPAY | END 2021-05-15 08:27 | disposition home or self-care (01) | LOC: HO.MDS 08:26 | PROVIDERS: PCP Internal Medicine; Visit Provider Internal Medicine Pulmonary Disease | DX: J45.50 Severe persistent asthma, uncomplicated (principal) | CPT/HCPCS: 96372; J0517 ==

== ENCOUNTER → 2021-05-31 11:43 | Outpatient (BNVA) | payer OTHER, SELFPAY | PROVIDERS: PCP Internal Medicine; Visit Provider Internal Medicine Pulmonary Disease | DX: J45.51 Severe persistent asthma with (acute) exacerbation (principal); R06.00 Dyspnea, unspecified | CPT/HCPCS: 99212 ==

== ENCOUNTER 2021-06-06 08:38 | Outpatient (REF) | payer OTHER, SELFPAY ==
[2021-06-06 11:50] LABS: Rheumatoid Factor < 15.0 IU/mL (<15.0)
[2021-06-07 14:36] LABS: Anti Nuclear Antibody Screen NEGATIVE (NEGATIVE)
[2021-06-07 14:46] LABS: Immunoglobulin G Subclass 1 661 mg/dL (382-929); Immunoglobulin G Subclass 2 434 mg/dL (241-700); Immunoglobulin G Subclass 3 152 mg/dL (22-178); Immunoglobulin G Subclass 4 15.7 mg/dL (4-86); Immunoglobulin G Total 1257 mg/dL (600-1640)
[2021-06-07 19:31] LABS: Antibody to SS-A Antigen 2.9 POS AI (<1.0 NEG); Antibody to SS-B Antigen <1.0 NEG AI (<1.0 NEG); Scleroderma 70 Antibody <1.0 NEG AI (<1.0 NEG)
[2021-06-08 21:16] LABS: Immunoglobulin M 86 mg/dL (50-300)
== END 2021-06-06 08:39 | disposition home or self-care (01) ==
LOC: HO.LAB 08:38
PROVIDERS: PCP Internal Medicine; Visit Provider Internal Medicine Pulmonary Disease
DX: D80.2 Selective deficiency of immunoglobulin A [IgA] (principal)
CPT/HCPCS: 36415; 82784; 86038; 86039; 86235; 86431

== ENCOUNTER → 2021-06-21 10:43 | Outpatient (BNVA) | payer OTHER, SELFPAY | PROVIDERS: PCP Internal Medicine; Visit Provider Internal Medicine Pulmonary Disease | DX: M35.00 Sjogren syndrome, unspecified (principal); J45.51 Severe persistent asthma with (acute) exacerbation; D80.2 Selective deficiency of immunoglobulin A [IgA]; Z91.09 Other allergy status, other than to drugs and biological substances | CPT/HCPCS: 99212 ==

== ENCOUNTER 2021-06-27 09:00 | Outpatient (REF) | payer OTHER, SELFPAY ==
[2021-06-27 10:39] LABS: MANUAL DIFF FLAG NO
[2021-06-27 11:01] LABS: Basophils Percent Auto 0.1 % (0-2); Hematocrit 38.8 % (37.0-47.0); Hemoglobin 12.4 g/dl (12.0-16.0); Imm Gran Abs Auto 0.04 X10*3/uL (0.00-0.03); Imm Gran Pct Auto 0.5 % (0.0-0.4); Lymphocytes Absolute Auto 2.3 X10*3/uL (1.2-4.9); Lymphocytes Percent Auto 27.8 % (20-40); Mean Corpuscular Hemoglobin 26.8 pg (27.0-33.0); Mean Platelet Volume 10.1 fL (9.4-12.3); Monocytes Absolute Auto 0.7 X10*3/uL (0.1-1.2); Neutrophils Absolute Auto 5.3 x10*3/uL (2.0-8.3); Neutrophils Percent Auto 63.6 % (45-73); Platelet Count 321 X10*3/uL (160-400); Red Blood Count 4.62 X10*6/uL (4.20-5.50); Red Cell Distribution Width 13.5 % (11.0-16.0); White Blood Count 8.4 X10*3/uL (4.8-10.8)
[2021-06-27 11:34] LABS: Creatinine Urine 34.05 mg/dL; Microalbumin Urine < 5.0 mg/L
[2021-06-27 11:46] LABS: Erythrocyte Sedimentation Rate 13 MM/HR (0-20)
[2021-06-27 11:47] LABS: Alanine Aminotransferase 31 U/L (0-31); Albumin Level 4.6 g/dL (3.5-5.0); Alkaline Phosphatase 74 U/L (39-117); Anion Gap 12 (12-20); Aspartate Amino Transferase 15 U/L (5-31); Bilirubin Total 0.6 mg/dL (0.0-1.0); Blood Urea Nitrogen 14 mg/dL (9-16); C Reactive Protein 0.09 mg/dL (< or = 0.50); Carbon Dioxide 28 mmol/L (22-29); Chloride 102 mmol/L (96-108); Estimated Glomerular Filt Rate > 60; Glucose Random 96 mg/dL (60-115); Potassium 3.9 mmol/L (3.3-5.1); Sodium 138 mmol/L (135-145); Total Protein 7.8 g/dL (6.5-8.0)
== END 2021-06-27 09:01 | disposition home or self-care (01) ==
LOC: HO.LAB 09:00
PROVIDERS: PCP Internal Medicine; Visit Provider Internal Medicine Rheumatology
DX: R76.8 Other specified abnormal immunological findings in serum (principal); M79.7 Fibromyalgia; M19.041 Primary osteoarthritis, right hand; M19.042 Primary osteoarthritis, left hand; J45.51 Severe persistent asthma with (acute) exacerbation
CPT/HCPCS: 36415; 80053; 82043; 85025; 85652; 86140; 99202

== ENCOUNTER 2021-07-10 08:22 | Outpatient (REF) | payer OTHER, SELFPAY | END 2021-07-10 08:23 | disposition home or self-care (01) | LOC: HO.MDS 08:22 | PROVIDERS: PCP Internal Medicine; Visit Provider Internal Medicine Pulmonary Disease | DX: J45.50 Severe persistent asthma, uncomplicated (principal) | CPT/HCPCS: 96372; J0517 ==

== ENCOUNTER 2021-09-03 11:00 | Outpatient (REF) | payer OTHER, SELFPAY ==
--- NOTE | ~2021-09-03 | XR_ITS ---
EXAMINATION: XR ABDOMEN KUB CLINICAL INDICATION: Left lower quadrant pain COMPARISON: CT of the abdomen and pelvis from 2011 TECHNIQUE: AP view of the abdomen. FINDINGS: The bowel gas pattern is normal with no evidence of ileus or obstruction. No unusual soft tissue calcifications are noted. There are XR/XR abdomen 1V degenerative changes of the spine and hip joints. IMPRESSION: Unremarkable examination.
== END 2021-09-03 11:01 | disposition home or self-care (01) ==
LOC: HO.XRAY 11:00
PROVIDERS: PCP Internal Medicine; Visit Provider Internal Medicine
DX: R10.32 Left lower quadrant pain (principal)
CPT/HCPCS: 74018

== ENCOUNTER 2021-09-04 08:46 | Outpatient (REF) | payer OTHER, SELFPAY | END 2021-09-04 08:47 | disposition home or self-care (01) | LOC: HO.MDS 08:46 | PROVIDERS: PCP Internal Medicine; Visit Provider Internal Medicine Pulmonary Disease | DX: J45.50 Severe persistent asthma, uncomplicated (principal) | CPT/HCPCS: 96372; J0517 ==

== ENCOUNTER → 2021-09-21 09:44 | Outpatient (BNVA) | payer OTHER, SELFPAY | PROVIDERS: PCP Internal Medicine; Visit Provider Internal Medicine Pulmonary Disease | DX: J45.51 Severe persistent asthma with (acute) exacerbation (principal); Z91.09 Other allergy status, other than to drugs and biological substances; R05.8 Other specified cough | CPT/HCPCS: 99212 ==

== ENCOUNTER → 2021-10-24 08:37 | Outpatient (BNVA) | payer OTHER, SELFPAY | PROVIDERS: PCP Internal Medicine; Visit Provider Nurse Practitioner | DX: K59.09 Other constipation (principal); R10.32 Left lower quadrant pain | CPT/HCPCS: 99202; 99212 ==

== ENCOUNTER 2021-10-25 10:03 | Outpatient (REF) | payer OTHER, SELFPAY ==
[2021-10-25 11:14] LABS: TSH reflex Free T4 2.28 uIU/mL (0.32-4.0)
== END 2021-10-25 10:04 | disposition home or self-care (01) ==
LOC: HO.LAB 10:03
PROVIDERS: PCP Internal Medicine; Visit Provider Nurse Practitioner
DX: K59.09 Other constipation (principal); J41.1 Mucopurulent chronic bronchitis; Z91.09 Other allergy status, other than to drugs and biological substances
CPT/HCPCS: 36415; 84443; 99212

== ENCOUNTER → 2021-11-21 10:09 | Outpatient (BNVA) | payer OTHER, SELFPAY | PROVIDERS: PCP Internal Medicine; Visit Provider Nurse Practitioner | DX: K59.09 Other constipation (principal) | CPT/HCPCS: 99212 ==

== ENCOUNTER → 2021-12-27 11:12 | Outpatient (BNVA) | payer OTHER, SELFPAY | PROVIDERS: PCP Internal Medicine; Visit Provider Internal Medicine Pulmonary Disease | DX: J41.1 Mucopurulent chronic bronchitis (principal); R05.8 Other specified cough | CPT/HCPCS: 94618; 99212 ==

== ENCOUNTER 2022-01-16 08:54 | Outpatient (REF) | payer OTHER, SELFPAY ==
--- NOTE | ~2022-01-16 | XR_ITS ---
EXAMINATION: XR CHEST CLINICAL INFORMATION: Chronic bronchitis COMPARISON: Previous chest CT and chest x-ray April 2021 TECHNIQUE: 2 views of the chest were obtained. FINDINGS: The cardiac and mediastinal contours are stable. There is a 8 mm nodular density seen on the lateral view posterior to the sternum. Appearance is questionable for a pulmonary nodule. The lungs are well inflated. The lungs are otherwise clear. There is no pleural effusion or pneumothorax. There are degenerative changes of the spine. XR/XR chest 2V IMPRESSION: Well-inflated lungs. No evidence of pneumonia. Question retrosternal pulmonary nodule. Follow-up chest CT should be considered. Findings will be communicated by the Eunice work flow ross carrier driver.
== END 2022-01-16 08:55 | disposition home or self-care (01) ==
LOC: HO.XRAY 08:54
PROVIDERS: PCP Internal Medicine; Visit Provider Internal Medicine
DX: J41.1 Mucopurulent chronic bronchitis (principal)
CPT/HCPCS: 71046

== ENCOUNTER → 2022-01-30 10:59 | Outpatient (BNVA) | payer OTHER, SELFPAY | PROVIDERS: PCP Internal Medicine; Visit Provider Internal Medicine Pulmonary Disease | DX: J41.1 Mucopurulent chronic bronchitis (principal); J45.51 Severe persistent asthma with (acute) exacerbation; D80.2 Selective deficiency of immunoglobulin A [IgA] | CPT/HCPCS: 99212 ==

== ENCOUNTER 2022-02-05 08:46 | Outpatient (REF) | payer OTHER, SELFPAY ==
--- NOTE | ~2022-02-05 | MM_ITS ---
EXAMINATION: MM DIAGNOSTIC DIGITAL BREAST TOMOSYNTHESIS, BILATERAL US DIAGNOSTIC ULTRASOUND BREAST, RIGHT CLINICAL INFORMATION: Chronic intermittent pain upper outer right breast. Pea-sized palpable area noted by patient. Due for yearly. COMPARISON: Mammography: 05/14/2021, 06/20/2018, 11/16/2015 TECHNIQUE: Digital breast tomosynthesis is performed in both the craniocaudal and mediolateral oblique views along with computer-aided detection (CAD). Synthesized 2D images are generated from the tomosynthesis. Ultrasound is targeted to the upper outer quadrant in area of symptoms. Patient is able to point to the site of palpable concern at time of imaging. Grayscale imaging and color Doppler are performed without and with harmonics. FINDINGS: There are scattered areas of fibroglandular density (ACR BI-RADS breast composition Category b). Parenchymal pattern is similar to prior exams and there is no developing density or interval mass or architectural abnormality. No abnormal calcifications. There are fine vascular calcifications on each side. The axilla are unremarkable. No skin thickening or coarsening of the Robb's ligaments. No significant changes. Ultrasound demonstrates no cystic or solid mass or architectural abnormality or focal duct ectasia. No skin thickening or edema tracking in soft tissue planes. No hyperemia. No mammographic or ultrasound correlate for patient's palpable concern. Results are discussed with the patient at time of visit. MM/MM tomosynthesis diagnostic BI IMPRESSION: -No mammographic evidence of malignancy or inflammatory changes. -Unremarkable right breast ultrasound. ASSESSMENT: BI-RADS 1: Negative RECOMMENDATION: 1. Patient should be managed based on the clinical impression. If clinically indicated, further evaluation may be considered with surgical consult. Decision to proceed with biopsy should be based on clinical grounds and degree of clinical concern. 2. Otherwise, routine annual screening mammography. This patient's information was entered into a reminder system with a target due date for their next mammogram.
== END 2022-02-05 08:47 | disposition home or self-care (01) ==
LOC: HO.MAMMO 08:46
PROVIDERS: PCP Internal Medicine; Visit Provider Emergency Medicine
DX: N63.11 Unspecified lump in the right breast, upper outer quadrant (principal); N64.4 Mastodynia
CPT/HCPCS: 76642; 77062; 77066

== ENCOUNTER 2022-02-13 08:19 | Outpatient (REF) | payer OTHER, SELFPAY ==
--- NOTE | ~2022-02-13 | CT_ITS ---
EXAMINATION: CT CHEST WITH CONTRAST CLINICAL INFORMATION: Follow-up pulmonary nodules COMPARISON: Previous chest CTA April 2021 TECHNIQUE: Multidetector volumetric CT imaging of the chest was obtained after the administration of 50 mL of Omnipaque 350 intravenous contrast without immediate adverse reactions. Axial MIP volume rendering provided. Sagittal and coronal reformatted images were obtained. This CT examination was performed using dose optimization techniques as appropriate, variously including the following: *Automated exposure control *Adjustment of mA and/or kV according to patient size (this includes techniques or standardized protocols for targeted exams where dose is matched to indication/reason for exam; i.e. extremities or head) *Use of iterative reconstruction technique DLP: 117 mGy-cm FINDINGS: HAT BAND ATTACHER: Unremarkable LUNGS: The small nodule in the anterior segment of the right upper lobe near the interhemispheric fissure appears smaller than on prior exams measuring 2 mm axial image 61 series 7. The 2 mm calcified right middle lobe nodule axial image 107 series 7 is stable. The 3 mm calcified left lower lobe nodule axial image 128 series 7 is stable. No new pulmonary nodule. There may be mild bronchiectasis in the right lower lobe. No endobronchial or endotracheal lesion. MEDIASTINUM: The mediastinum is normal. PLEURA: There is no pleural effusion. No pleural mass or thickening. AXILLA: No lymphadenopathy. UPPER ABDOMEN: Unremarkable OSSEOUS STRUCTURES: Mild degenerative changes of the spine. CT/CT chest w IV con IMPRESSION: Interval decrease in size in the right upper lobe nodule. Other small calcified nodules are unchanged. Fleischner guidelines were followed.
[2022-02-13] MEDS: iohexoL 350 MG/ML 100 ML INFUS..BTL IV (09:27)
[2022-02-15 07:27] LABS: Creatinine POC 0.5 mg/dL (0.5-1.4); GFR POC > 60
== END 2022-02-13 08:20 | disposition home or self-care (01) ==
LOC: HO.CT 08:19
PROVIDERS: PCP Internal Medicine; Visit Provider Internal Medicine
DX: R91.1 Solitary pulmonary nodule (principal)
CPT/HCPCS: 71260; 82565; Q9967

== ENCOUNTER → 2022-03-06 10:03 | Outpatient (BNVA) | payer OTHER, SELFPAY | PROVIDERS: PCP Internal Medicine; Visit Provider Nurse Practitioner | DX: K59.04 Chronic idiopathic constipation (principal); D80.2 Selective deficiency of immunoglobulin A [IgA]; R05.9 Cough, unspecified | CPT/HCPCS: 99212 ==

== ENCOUNTER → 2022-03-07 14:53 | Outpatient (BNVA) | payer OTHER, SELFPAY | PROVIDERS: PCP Internal Medicine; Visit Provider Internal Medicine Pulmonary Disease | DX: M54.9 Dorsalgia, unspecified (principal) | CPT/HCPCS: 99212 ==

== ENCOUNTER 2022-03-08 08:21 | Emergency (ER) | payer OTHER, SELFPAY ==
--- NOTE | ~2022-03-08 | XR_ITS ---
EXAMINATION: XR CHEST CLINICAL INFORMATION: Asthma. Shortness of breath. COMPARISON: Chest CT dated February 13, 2022. Chest x-ray dated January 16, 2022. TECHNIQUE: 2 views of the chest were obtained. FINDINGS: No significant abnormality is noted involving the heart, lungs, mediastinum, bony thorax or soft tissues. XR/XR chest 2V IMPRESSION: Unremarkable examination.
[2022-03-08 08:24] VITALS: BP 97/50; PULSE 61; RESP 18; TEMP 36.4; O2SAT 100; BMI 25.0
--- NOTE | 2022-03-08 08:45 | ED_ITS ---
HPI - SOB/Dyspnea General Chief Complaint: Dyspnea Stated Complaint: Diff Breathing Pain Back Area Time Seen by Provider: 03/08/22 08:31 Source: patient Mode of arrival: ambulatory Limitations: no limitations History of Present Illness HPI Narrative: 56-year-old female with a history of fibromyalgia, severe persistent allergic asthma, bronchitis, chronic constipation, pulmonary nodule, depression, osteoarthritis who presents to the ER for evaluation of worsening asthma symptoms for the last few days. She thinks she has bronchitis. She has been using her nebulizer treatments at home for shortness of breath and coughing. She has had bronchitis in the past and states this feels similar. She is bringing up phlegm, does not know the color. She denies any fevers at home, no chest pain, nausea, vomiting, abdominal pain. No known sick contacts. MD elicited complaint: shortness of breath and cough Pertinent past history: asthma Onset (ago): day(s) Timing: progressively worsening Severity: moderate Exacerbating factors: exertion and coughing Related Data Home Medications Medication Instructions Recorded Confirmed ketotifen fumarate 0.025 % (0.035 drp ophthalmic (eye) 10/24/21 03/07/22 %) eye drops wheat dextrin 5 gram/7.4 gram oral g PO 11/21/21 03/07/22 powder (Benefiber Healthy Shape) immun glob G 1 gram/5mL(20 7,000 mg subcut QWEEK 03/06/22 03/07/22 %)-prol-IgA 0-50 mcg/mL subcutaneous syring (Hizentra) tiotropium bromide 1.25 2 puff inhalation DAILY 03/06/22 03/07/22 mcg/actuation mist for inhalation (Spiriva Respimat) Previous Rx's Medication Instructions Recorded cetirizine 10 mg tablet 10 mg PO DAILY #90 tabs 06/23/20 meclizine 25 mg tablet 25 mg PO TID PRN dizziness 30 days 09/03/21 #90 tabs fluticasone 113 mcg-salmeterol 14 1 inh inhalation BID 30 days #1 ea 10/25/21 mcg/actuation breath activated powdr (AirDuo RespiClick) tobramycin 300 mg/5 mL in 0.225 % 300 mg (5 mL) inhalation BID 28 11/08/21 sodium chloride for nebulization days #280 mL albuterol sulfate 90 mcg/actuation 2 puff inhalation Q6H PRN 12/27/21 aerosol inhaler shortness of breath or wheezing 30 days #8.5 grams levofloxacin 750 mg tablet 750 mg PO DAILY 14 days #14 tabs 01/30/22 ipratropium 0.5 mg-albuterol 3 mg 3 ml inhalation QID wheezing 30 01/31/22 (2.5 mg base)/3 mL nebulization days #360 mL soln amoxicillin 875 mg-potassium 1 tab PO BID #14 tabs 02/04/22 clavulanate 125 mg tablet sennosides 8.6 mg tablet 17.2 mg PO BEDTIME 30 days #60 tabs 03/06/22 doxycycline hyclate 100 mg tablet 100 mg PO BID #14 tabs 03/08/22 guaifenesin 1,200 mg tablet, 1,200 mg PO BID #14 tabs 03/08/22 extended release 12 hr (Mucinex) prednisone 20 mg tablet 40 mg PO DAILY #10 tabs 03/08/22 Allergies Allergy/AdvReac Type Severity Reaction Status Date / Time No Known Allergies Allergy Verified 03/07/22 15:01 Review of Systems Review of Systems: Constitutional: No Fever, No Chills ENT/Mouth: No sore throat, No Rhinorrhea, No Swallowing Difficulty Cardiovascular: No Chest Pain, + SOB, No Orthopnea, No Edema Respiratory: +Cough, + Sputum, + Wheezing, No dyspnea Gastrointestinal: No Nausea, No Vomiting, No Diarrhea, No abdominal Pain Genitourinary: No Dysuria, No Urinary Frequency, No Hematuria Musculoskeletal: No joint pain, No Myalgias Skin: No Skin Lesions, No rash Neuro: No Weakness, No Dizziness, No Headache Heme/Lymph: No Lymphadenopathy PMFSH Past Medical History Medical History BARRON positive Anemia Asthma Blood D-dimer assay positive Chronic constipation Chronic pain syndrome Depression Fibromyalgia Left lumbar radiculopathy Lumbar degenerative disc disease Multiple allergies Myofascial pain syndrome Neck pain Overweight (BMI 25.0-29.9) Primary osteoarthritis of hands, bilateral Pure hypercholesterolemia Sacroiliitis Spondylosis without myelopathy or radiculopathy, cervical region SS-A antibody positive Surgical History History of esophagogastroduodenoscopy (EGD) History of total abdominal hysterectomy Hx of colonoscopy Family History Family History Father Myocardial infarction Stomach cancer Mother Myocardial infarction Osteoporosis Diabetes Brother HIV (human immunodeficiency virus infection) Sister In good health Social History Social History Housing: Apartment Alcohol intake: current Alcohol intake frequency: holidays/special occasions only Alcohol type: wine Patient Tobacco Use Status: Never used Tobacco e-Cigarette/Vaping Use: Never Used Second Hand Smoke Exposure: No Advance Directives: No Advance Directives Information Provided: Yes service: No Current occupational status: retired and disabled Cognitive needs: No Hearing needs: No Vision needs: Yes Physical Exam Vital Signs: Vital Signs: Last Vital Signs Temp 97.5 F 03/08/22 08:24 Pulse 61 03/08/22 08:24 Resp 18 03/08/22 08:24 BP 97/50 L 03/08/22 08:24 Pulse Ox 100 03/08/22 08:24 O2 Del Method 03/08/22 08:24 BMI result Body Mass Index 25.0 Appearance: Alert. Oriented X3. No acute distress. Eyes: Pupils equal, round and reactive to light. ENT: Pharynx normal. Neck: Normal inspection. Neck supple. CVS: Normal heart rate and rhythm. Pulses normal. Respiratory: No respiratory distress. Breath sounds normal. No wheezes, rhonchi or rales Skin: Skin warm and dry. Normal skin color. Normal skin turgor. No rashes. Extremities: No lower extremity edema. No calf tenderness Neuro: Oriented X 3. No motor deficit. No sensory deficit. Course Course Course Narrative: 56-year-old female with history of severe persistent allergic asthma, seasonal allergies, fibromyalgia who presents to the ER for evaluation of productive cough and shortness of breath for the last few days. She reports feeling similar in the past when she had bronchitis. She has been taking inhaled nebulizer treatments with tobramycin and albuterol at home. She has no chest pain or difficulty breathing. On arrival to the ER her vital signs are stable. She is oxygenating well with clear lungs on exam. She states she does today neb treatment at home. Will check chest x-ray and viral swabs. She appears well. Reevaluation(s) Reevaluation #1: Chest x-ray shows no pneumonia. Negative for flu and COVID. Will treat for acute bronchitis with steroids and doxycycline given her severe lung disease. She was advised to follow-up with her water resources engineer next week and continue her nebulizer treatments at home as previously directed. Return precautions were discussed. Stable for DC. Medical Decision Making Lab Data Labs: Lab Results 03/08/22 03/08/22 Range/Units 08:49 08:49 COVID-19 (MILAGROS) Negative (Negative) COVID-19 Clin Com See Note Influenza Type A (BARNEY) Negative (Negative) Influenza Type B (BARNEY) Negative (Negative) Influenza A & B Note See Note Discharge Plan Discharge Clinical Impression: Acute bronchitis Patient Disposition: Home, Self-Care Instructions: Acute Bronchitis (ED) Additional Instructions: Your x-ray showed no evidence of pneumonia. You are negative for COVID and influenza. Take the prescribed medications as directed. Continue your nebulizer treatments at home as directed by your water resources engineer. Recommend following up with your pulmonary doctor and primary care doctor next week. If you develop new or worsening symptoms call 911 or come back to the ER for further evaluation. Prescriptions: New prednisone 20 mg tablet 40 mg PO DAILY Qty: 10 0RF doxycycline hyclate 100 mg tablet 100 mg PO BID Qty: 14 0RF Mucinex 1,200 mg tablet extended release 12hr 1,200 mg PO BID Qty: 14 0RF No Action cetirizine 10 mg tablet 10 mg PO DAILY Qty: 90 1RF tobramycin in 0.225 % NaCl 300 mg/5 mL solution for nebulization 300 mg inhalation BID 28 Days Qty: 280 3RF Rx Instructions: separate doses by at least 6 hours, 28 days on and 28 days off ipratropium-albuterol 0.5 mg-3 mg(2.5 mg base)/3 mL solution for nebulization 3 ml inhalation QID 30 Days Qty: 360 6RF meclizine 25 mg tablet 25 mg PO TID PRN (Reason: dizziness) 30 Days Qty: 90 1RF amoxicillin-pot clavulanate 875-125 mg tablet 1 tab PO BID Qty: 14 0RF fluticasone propion-salmeterol [AirDuo RespiClick] 113-14 mcg/actuation aerosol powdr breath activated 1 inh inhalation BID 30 Days Qty: 1 12RF Benefiber Healthy Shape 5 gram/7.4 gram powder PO albuterol sulfate 90 mcg/actuation HFA aerosol inhaler 2 puff inhalation Q6H PRN (Reason: shortness of breath or wheezing) 30 Days Qty: 8.5 5RF Spiriva Respimat 1.25 mcg/actuation mist 2 puff inhalation DAILY Hizentra 1 gram/5 mL (20 %) syringe 7,000 mg subcut QWEEK sennosides 8.6 mg tablet 17.2 mg PO BEDTIME 30 Days Qty: 60 6RF levofloxacin 750 mg tablet 750 mg PO DAILY 14 Days Qty: 14 0RF ketotifen fumarate 0.025 % (0.035 %) drops ophthalmic (eye)
[2022-03-08 09:16] LABS: COVID-19 Test Negative (Negative); IDNOW Serial# 16C4AD1C; IDNOW Serial# BCCEAD1C; Influenza A Negative (Negative); Influenza B2 Negative (Negative)
== END 2022-03-08 10:43 | disposition home or self-care (01) ==
PROVIDERS: Physician Assistant; Emergency Provider Student in an Organized Health Care Education/Training Program; PCP Internal Medicine
DX: J20.9 Acute bronchitis, unspecified (principal); Z20.822 Contact with and (suspected) exposure to COVID-19
CPT/HCPCS: 71046; 87502; 87635; 99282; 99283

== ENCOUNTER 2022-04-08 11:40 | Outpatient (REF) | payer OTHER, SELFPAY ==
--- NOTE | ~2022-04-08 | XR_ITS ---
EXAMINATION: XR SHOULDER, LEFT CLINICAL INFORMATION: Pain in left shoulder COMPARISON: None TECHNIQUE: AP external rotation, Grashey, scapular Y, and axillary views of the left shoulder. FINDINGS: No fracture. No dislocation. Visualized left lung and ribs are normal. XR/XR shoulder LT min 2V IMPRESSION: No acute osseous abnormality of the left shoulder.
--- NOTE | ~2022-04-08 | XR_ITS ---
EXAMINATION: XR KNEE, LEFT CLINICAL INFORMATION: Pain left knee COMPARISON: None TECHNIQUE: Three views of the left knee. FINDINGS: No fracture, dislocation, or joint effusion. Normal mineralization and alignment. Joint spaces are maintained. XR/XR knee LT 3V IMPRESSION: No acute osseous abnormality.
[2022-04-08 12:42] LABS: C Reactive Protein < 0.10 mg/dL (< or = 0.50)
[2022-04-08 13:05] LABS: Erythrocyte Sedimentation Rate 14 MM/HR (0-20)
== END 2022-04-08 11:41 | disposition home or self-care (01) ==
LOC: HO.US 11:40
PROVIDERS: Absent Provider Nurse Practitioner Family; PCP Internal Medicine; Visit Provider Internal Medicine Rheumatology
DX: M47.812 Spondylosis without myelopathy or radiculopathy, cervical region (principal); M19.041 Primary osteoarthritis, right hand; M19.042 Primary osteoarthritis, left hand; M25.512 Pain in left shoulder; M25.562 Pain in left knee; M79.7 Fibromyalgia; R22.9 Localized swelling, mass and lump, unspecified; R20.2 Paresthesia of skin; R76.8 Other specified abnormal immunological findings in serum; N95.1 Menopausal and female climacteric states; Z82.62 Family history of osteoporosis; Z79.899 Other long term (current) drug therapy
CPT/HCPCS: 36415; 73030; 73562; 85652; 86140; 99212

== ENCOUNTER 2022-04-12 10:26 | Outpatient (REF) | payer OTHER, SELFPAY ==
--- NOTE | ~2022-04-12 | MM_ITS ---
EXAMINATION: BONE DENSITOMETRY CLINICAL INDICATION: Menopause. COMPARISON: This is the patient's baseline examination. TECHNIQUE: Using a [employer] DXA System (software version: 13.1) manufactured by [employer], dual-energy x-ray absorptiometry was performed of the lumbar spine and left hip. The images are of good technical quality. Summary results are attached. FINDINGS: AP SPINE L1-L4: BMD 1.164 g/cm2, Z-score 0.8, T-score -0.1, normal. LEFT FEMUR, NECK: BMD 1.035 g/cm2, Z-score 1.0, T-score 0.0, normal. LEFT FEMUR, TOTAL: BMD 1.188 g/cm2, Z-score 2.1, T-score 1.4, normal. IDENTIFIED RISK FACTORS: Early menopause, hysterectomy, low calcium intake, secondary osteoporosis. HISTORY OF FRACTURE: None listed. MEDICATIONS: Multivitamin, vitamin D. MM/XR DEXA axial skeleton IMPRESSION: 1. DIAGNOSIS: Normal bone density based on the lowest T-score value of -0.1 in the lumbar spine applying World Health Organization criteria. 2. 10-YEAR FRACTURE RISK PREDICTION, FRAX: According to the guidelines, FRAX calculation should only be performed on patients in the osteopenia bone density category. Therefore, FRAX was not performed on this patient. 3. Treatment Recommendations: NOF guidelines recommend consideration for treatment in postmenopausal women and men age 50 and older presenting with the following: -A hip or vertebral (clinical or morphometric) fracture. -T-score less than or equal to -2.5 at the femoral neck or spine after appropriate evaluation to exclude secondary causes. -Low bone mass at the hip or spine and a 10-year fracture probability by FRAX of greater than or equal to 3% for hip fracture or greater than or equal to 20% for major osteoporotic fracture based on the [place] adapted WHO algorithm. 4. Other Recommendations: All treatment decisions require clinical judgment and consideration of individual patient factors, including patient preferences, comorbidities, previous drug use, risk factors not captured in the FRAX model (e.g. frailty, falls, vitamin D deficiency, increased bone turnover, interval significant decline in bone density) and possible under or overestimation of fracture risk by FRAX. FUTURE SCAN RECOMMENDATION: People with diagnosed cases of osteoporosis or at high risk for fracture should have regular bone mineral density tests. For patients eligible for Medicare, routine testing is allowed once every 2 years. The testing frequency can be increased to one year for patients who have rapidly progressing disease, those who are receiving or discontinuing medical therapy to restore bone mass, or have additional risk factors.
== END 2022-04-12 10:27 | disposition home or self-care (01) ==
LOC: HO.MAMMO 10:26
PROVIDERS: PCP Internal Medicine; Visit Provider Internal Medicine Rheumatology
DX: N95.1 Menopausal and female climacteric states (principal); Z82.62 Family history of osteoporosis
CPT/HCPCS: 77080

== ENCOUNTER → 2022-04-16 09:55 | Outpatient (BNVA) | payer OTHER, SELFPAY | PROVIDERS: PCP Internal Medicine; Visit Provider Internal Medicine Rheumatology | DX: M75.82 Other shoulder lesions, left shoulder (principal); R20.0 Anesthesia of skin; M25.561 Pain in right knee; M25.562 Pain in left knee | CPT/HCPCS: 20610; 99212 ==

== ENCOUNTER 2022-04-25 12:24 | Outpatient (REF) | payer OTHER, SELFPAY | END 2022-04-25 12:25 | disposition home or self-care (01) | LOC: HO.MDS 12:24 | PROVIDERS: Visit Provider Internal Medicine Pulmonary Disease | DX: D80.2 Selective deficiency of immunoglobulin A [IgA] (principal) | CPT/HCPCS: 96369 ==

== ENCOUNTER 2022-05-02 09:02 | Outpatient (REF) | payer OTHER, SELFPAY | END 2022-05-02 09:03 | disposition home or self-care (01) | LOC: HO.MDS 09:02 | PROVIDERS: PCP Internal Medicine; Visit Provider Internal Medicine Pulmonary Disease | DX: D80.2 Selective deficiency of immunoglobulin A [IgA] (principal) | CPT/HCPCS: 96369; J1559 ==

== ENCOUNTER 2022-05-09 10:33 | Outpatient (REF) | payer OTHER, SELFPAY | END 2022-05-09 10:34 | disposition home or self-care (01) | LOC: HO.MDS 10:33 | PROVIDERS: Visit Provider Internal Medicine Pulmonary Disease | DX: D80.2 Selective deficiency of immunoglobulin A [IgA] (principal); R05.9 Cough, unspecified; J45.51 Severe persistent asthma with (acute) exacerbation; J41.1 Mucopurulent chronic bronchitis; R91.1 Solitary pulmonary nodule; Z79.899 Other long term (current) drug therapy | CPT/HCPCS: 96369; 99212; J1559 ==

== ENCOUNTER 2022-05-16 09:03 | Outpatient (REF) | payer OTHER, SELFPAY | END 2022-05-16 09:04 | disposition home or self-care (01) | LOC: HO.MDS 09:03 | PROVIDERS: Visit Provider Internal Medicine Pulmonary Disease | DX: D80.2 Selective deficiency of immunoglobulin A [IgA] (principal) | CPT/HCPCS: 96369 ==

== ENCOUNTER 2022-05-23 10:14 | Outpatient (REF) | payer OTHER, SELFPAY | END 2022-05-23 10:15 | disposition home or self-care (01) | LOC: HO.MDS 10:14 | PROVIDERS: Visit Provider Internal Medicine Pulmonary Disease | DX: D80.2 Selective deficiency of immunoglobulin A [IgA] (principal) | CPT/HCPCS: 96369 ==

== ENCOUNTER 2022-05-27 12:52 | Outpatient (REF) | payer OTHER, SELFPAY ==
--- NOTE | ~2022-05-27 | CT_ITS ---
EXAMINATION: CT CHEST WITHOUT CONTRAST CLINICAL INFORMATION: Solitary pulmonary nodule. COMPARISON: None TECHNIQUE: Multidetector volumetric CT imaging of the chest was done. Axial MIP volume rendering provided. Sagittal and coronal reformatted images were obtained. This CT examination was performed using dose optimization techniques as appropriate, variously including the following: *Automated exposure control *Adjustment of mA and/or kV according to patient size (this includes techniques or standardized protocols for targeted exams where dose is matched to indication/reason for exam; i.e. extremities or head) *Use of iterative reconstruction technique DLP: 136 mGy-cm FINDINGS: MANAGER PUBLIC: Well-inflated lungs. LUNGS: The lungs are well-expanded and clear of acute pneumonic consolidation. No pulmonary nodules, mass or ground-glass densities are seen. There is atelectasis. There are punctate calcifications visualized bilaterally. Minimal atelectatic changes are seen in the lingula. MEDIASTINUM: Thyroid lobes are symmetrical and normal. Heart size and the great vessels are of normal caliber. Central trachea and the bronchi are widely patent. No pericardial effusion is seen. There are no coronary artery calcifications present. CORONARY ARTERY CALCIFICATION: None visualized on this study. PLEURA: There is no pleural effusion. No pleural mass or thickening. AXILLA: No abnormal axillary lymph nodes seen. The chest wall is unremarkable. UPPER ABDOMEN: Visualized liver, spleen, pancreas and bilateral adrenal glands are unremarkable. OSSEOUS STRUCTURES: Mild dextroscoliosis of the dorsal spine. No aggressive lytic or sclerotic process seen. CT/CT chest wo IV con IMPRESSION: 1. No pulmonary nodules seen. Previously visualized right upper lobe pulmonary nodule is not seen at this time. There are punctate calcifications visualized bilaterally. 2. Minimal atelectatic changes in the lingula. 3. No abnormal mediastinal or axillary lymph nodes seen. Fleischner guidelines were followed.
== END 2022-05-27 12:53 | disposition home or self-care (01) ==
LOC: HO.CT 12:52
PROVIDERS: Visit Provider Internal Medicine Pulmonary Disease
DX: R91.1 Solitary pulmonary nodule (principal)
CPT/HCPCS: 71250

== ENCOUNTER 2022-05-30 08:47 | Outpatient (REF) | payer OTHER, SELFPAY | END 2022-05-30 08:48 | disposition home or self-care (01) | LOC: HO.MDS 08:47 | PROVIDERS: Visit Provider Internal Medicine Pulmonary Disease | DX: D80.2 Selective deficiency of immunoglobulin A [IgA] (principal) | CPT/HCPCS: 96369 ==

== ENCOUNTER 2022-06-06 09:41 | Outpatient (REF) | payer OTHER, SELFPAY | END 2022-06-06 09:42 | disposition home or self-care (01) | LOC: HO.MDS 09:41 | PROVIDERS: Visit Provider Internal Medicine Pulmonary Disease | DX: D80.2 Selective deficiency of immunoglobulin A [IgA] (principal) | CPT/HCPCS: 96369; J1559 ==

== ENCOUNTER 2022-06-11 00:50 | Emergency (ER) | payer OTHER, SELFPAY ==
--- NOTE | ~2022-06-11 | XR_ITS ---
EXAMINATION: XR CHEST CLINICAL INFORMATION: Difficulty breathing COMPARISON: 03/08/2022 TECHNIQUE: Frontal view of the chest was obtained. FINDINGS: The lungs are well expanded. There is no focal consolidation, edema, or effusion. No pneumothorax. The cardiomediastinal silhouette is within normal limits. No acute osseous abnormality. XR/XR chest 1V IMPRESSION: Clear lungs.
--- NOTE | 2022-06-11 00:58 | ECG_ITS ---
Test Reason : ANXIETY Blood Pressure : / mmHG Vent. Rate : 059 BPM Atrial Rate : 059 BPM P-R Int : 118 ms QRS Dur : 092 ms QT Int : 414 ms P-R-T Axes : 046 041 060 degrees QTc Int : 409 ms Sinus bradycardia Otherwise normal ECG When compared with ECG of 24-JUL-2018 09:20, Nonspecific T wave abnormality, improved in Lateral leads Referred By: Generic ED Physician Electronically Signed By:TAMI SONG MD
--- NOTE | 2022-06-11 00:59 | PC.NURSE ---
Registration made this RN aware of the pt's SC immediately upon arrival. RN to waiting room to find patient seated outside of triage, awake, alert, breathing rapidly, tearful, tremulous and holding onto her chest. The pt continued to state I can't breathe, I can't breathe . This RN asked the pt if she was having chest pain to which she answered no and again confirmed difficulty breathing. Per the pt's report she was unable to ambulate PE 1 for an EKG, RN assisted the pt into a wheelchair (pt noted to be steady on her feet) and assessed the pt's O2 sat and HR which were WNL (100% on room air and 84). Pt tearful and asking why do I feel like this , she was educated on EKG purpose and process and will be triaged once EKG complete.
[2022-06-11 01:09] VITALS: BP 142/67; PULSE 56; RESP 20; TEMP 36.4; O2SAT 100; BMI 26.7
[2022-06-11 01:36] LABS: Basophils Absolute Auto 0.1 X10*3/uL (0.0-0.2); Eosinophils Absolute Auto 0.2 X10*3/uL (0.0-0.4); Eosinophils Percent Auto 3.9 % (0-4); Hematocrit 35.6 % (37.0-47.0); Hemoglobin 11.4 g/dl (12.0-16.0); Imm Gran Abs Auto 0.02 X10*3/uL (0.00-0.03); Imm Gran Pct Auto 0.3 % (0.0-0.4); Lymphocytes Absolute Auto 1.8 X10*3/uL (1.2-4.9); Lymphocytes Percent Auto 30.3 % (20-40); MANUAL DIFF FLAG NO; Mean Corpuscular Hemoglobin 26.8 pg (27.0-33.0); Mean Corpuscular Volume 83.6 fL (80.0-98.0); Mean Platelet Volume 9.9 fL (9.4-12.3); Monocytes Absolute Auto 0.5 X10*3/uL (0.1-1.2); Neutrophils Absolute Auto 3.3 x10*3/uL (2.0-8.3); Neutrophils Percent Auto 56.5 % (45-73); Platelet Count 254 X10*3/uL (160-400); Red Blood Count 4.26 X10*6/uL (4.20-5.50); Red Cell Distribution Width 13.2 % (11.0-16.0); White Blood Count 5.9 X10*3/uL (4.8-10.8)
[2022-06-11 02:01] LABS: Alanine Aminotransferase 27 U/L (0-31); Albumin Level 4.3 g/dL (3.5-5.0); Alkaline Phosphatase 74 U/L (39-117); Anion Gap 13 (12-20); Aspartate Amino Transferase 17 U/L (5-31); Bilirubin Total 0.3 mg/dL (0.0-1.0); Blood Urea Nitrogen 15 mg/dL (9-16); Calcium 9.4 mg/dL (8.4-10.2); Carbon Dioxide 24 mmol/L (22-29); Chloride 107 mmol/L (96-108); Creatinine Clr Calc Pharmacy 78.7; Estimated Glomerular Filt Rate > 60; Glucose Random 101 mg/dL (60-115); Potassium 3.2 mmol/L (3.3-5.1); Sodium 141 mmol/L (135-145); Total Protein 7.3 g/dL (6.5-8.0)
[2022-06-11 02:11] LABS: Troponin-I High Sensitivity < 3.5 ng/L (<3.5-17.0)
[2022-06-11 02:33] VITALS: BP 147/74; PULSE 60; RESP 16; TEMP 36.6; O2SAT 100
--- NOTE | 2022-06-11 05:17 | ED.SOB ---
HPI - SOB/Dyspnea General Chief Complaint: Dyspnea Stated Complaint: Chest pain/Diff breathing Time Seen by Provider: 06/11/22 04:47 Source: patient Mode of arrival: ambulatory Limitations: no limitations History of Present Illness HPI Narrative: 56-year-old female who presents emergency department for evaluation difficulty coughing up sputum. The patient is followed by our veneer jointer operator, Dr. Hayes. I did review his note from 05/09/2022. The patient has severe, persistent allergic asthma and severe IgA deficiency. The patient is treated with nebulized tobramycin twice a day and weekly injections of immunoglobulin. In his note, he states that the patient has difficulty with expect reading mucus. The patient had a right upper lobe pulmonary nodule and had a follow-up CT scan on 05/27/2022 which revealed clear lungs with resolution of the pulmonary nodule. The patient states that throughout the day she felt like she had to cough, this was nonproductive and she feels like something is stuck in the center of her chest that she cannot cough up. She states that she coughs violently and this causes her to shake and have difficulty breathing. She states that occasionally when she coughs she feels lightheaded, dizzy and feels like she is going to pass out. She denied fever, chills, rhinorrhea, sore throat. She states she does feel short of breath and has dyspnea on exertion. She denied nausea, vomiting or diarrhea. Related Data Home Medications Medication Instructions Recorded Confirmed ketotifen fumarate 0.025 % (0.035 drp ophthalmic (eye) 10/24/21 04/08/22 %) eye drops wheat dextrin 5 gram/7.4 gram oral g PO 11/21/21 04/08/22 powder (Benefiber Healthy Shape) tiotropium bromide 1.25 2 puff inhalation DAILY 03/06/22 04/08/22 mcg/actuation mist for inhalation (Spiriva Respimat) ipratropium 0.5 mg-albuterol 3 mg 3 ml inhalation QID wheezing 04/08/22 04/08/22 (2.5 mg base)/3 mL nebulization soln Previous Rx's Medication Instructions Recorded cetirizine 10 mg tablet 10 mg PO DAILY #90 tabs 06/23/20 meclizine 25 mg tablet 25 mg PO TID PRN dizziness 30 days 09/03/21 #90 tabs fluticasone 113 mcg-salmeterol 14 1 inh inhalation BID 30 days #1 ea 10/25/21 mcg/actuation breath activated powdr (AirDuo RespiClick) tobramycin 300 mg/5 mL in 0.225 % 300 mg (5 mL) inhalation BID 28 11/08/21 sodium chloride for nebulization days #280 mL albuterol sulfate 90 mcg/actuation 2 puff inhalation Q6H PRN 12/27/21 aerosol inhaler shortness of breath or wheezing 30 days #8.5 grams sennosides 8.6 mg tablet 17.2 mg PO BEDTIME 30 days #60 tabs 03/06/22 arm brace (Wrist Brace Medium) #2 ea 04/16/22 guaifenesin 1,200 mg tablet, 1,200 mg PO BID #60 tabs 05/09/22 extended release 12 hr (Mucinex) doxycycline hyclate 100 mg tablet 100 mg PO Q12H 7 days #14 tabs 06/11/22 Allergies Allergy/AdvReac Type Severity Reaction Status Date / Time No Known Allergies Allergy Verified 06/11/22 01:08 Review of Systems Review of Systems: Yes all other systems are reviewed and are negative [facility] Past Medical History [facility] Narrative: Social history: She denies tobacco, alcohol and drug use. Medical History BARRON positive Anemia Asthma Blood D-dimer assay positive Chronic constipation Chronic pain syndrome Depression Fibromyalgia Left lumbar radiculopathy Lumbar degenerative disc disease Lump of skin Multiple allergies Myofascial pain syndrome Neck pain Overweight (BMI 25.0-29.9) Primary osteoarthritis of hands, bilateral Pure hypercholesterolemia Sacroiliitis Spondylosis without myelopathy or radiculopathy, cervical region SS-A antibody positive Surgical History History of esophagogastroduodenoscopy (EGD) History of total abdominal hysterectomy Hx of colonoscopy Family History Family History Father Myocardial infarction Stomach cancer Mother Myocardial infarction Osteoporosis Diabetes Brother HIV (human immunodeficiency virus infection) Sister In good health Social History Social History Housing: Apartment Alcohol intake: never Patient Tobacco Use Status: Never used Tobacco Smoked in Last 30 Days: No e-Cigarette/Vaping Use: Never Used Second Hand Smoke Exposure: No Use of substances other than those prescribed or required for medical reasons: No Advance Directives: No Advance Directives Information Provided: Yes service: No Current occupational status: retired and disabled Cognitive needs: No Hearing needs: No Vision needs: Yes Physical Exam Vital Signs: Vital Signs: Last Vital Signs Temp 97.9 F 06/11/22 02:33 Pulse 60 06/11/22 02:33 Resp 16 06/11/22 02:33 BP 147/74 H 06/11/22 02:33 Pulse Ox 100 06/11/22 02:33 O2 Del Method 06/11/22 02:33 BMI result Body Mass Index 26.7 Const: Other: Awake, alert, patient, she does appear to be anxious, she is able to talk in full sentences, she does not appear to be in respiratory distress HEENT: Head: Yes normal to inspection, Yes normocephalic and Yes atraumatic Ears: external ears normal General nose exam: Normal external nose present Face and sinus: Yes normal facial exam Mouth: Normal oral and palatal mucosa present Throat: Yes posterior oropharynx normal Eyes: General: appearance normal, both eyes and all related structures Neck: Neck: Yes normal visual inspection, Yes no lymphadenopathy, Yes trachea midline and Yes supple Chest: Chest palpation & inspection: normal inspection of the chest and normal palpation of entire chest wall Resp: Effort & Inspection: normal respiratory effort and able to speak in complete sentences Auscultation: clear to auscultation bilaterally Cardio: Rate: regular rate Rhythm: regular rhythm Heart sounds: S1 normal heart sound present, S2 normal heart sound present and no murmurs GI: Inspection: Yes normal to inspection Palpation (GI): Soft to palpation, nontender and no guarding Auscultation: normal bowel sounds : General: Yes no CVA tenderness Back/Spine/Pelvis: Back: no CVA tenderness Skin: General skin exam: no rashes or lesions noted Neuro: Cognition (Neuro): normal cognition Motor exam (neuro): 5/5 motor strength present throughout Extrem: General: Yes normal to inspection Psych: Appearance: grossly normal Speech and movement: Normal speech and movement present Affect: normal affect Attitude: cooperative Medical Decision Making Medical Decision Making [facility] Narrative: 56-year-old female with a history of severe, persistent allergic asthma and severe IgA deficiency, treated with nebulized tobramycin twice a day and weekly injections of immunoglobulin and difficulty with expect treating mucous who presents emergency department for evaluation of a dry , nonproductive cough and she feels like she has mucus stuck in her chest. Vital signs did reveal an elevated blood pressure of 142/67 otherwise was unremarkable. O2 saturation was 100% on room air. The patient's lung exam was normal with no wheezing or rhonchi. 0523: My interpretation patient's laboratory evaluation as follows: Patient is anemic with an H&H of 11.4 and 35.6. Potassium was low 3.2. High sensitive troponin I was below detectable limits. My interpretation the patient's chest x-ray is that there was no acute infiltrates. Radiology had a similar interpretation. I did discuss the patient's congested feeling in the feeling that she needs to expect rate mucus with our respiratory therapist. He recommended using an Aerobika attached to nebulized saline to see if this helps her expectorate mucus. Patient will also be started on doxycycline 100 mg twice a day for 7 days and given her 1st dose here in the emergency department 0538: The patient did not want to Aerobika with nebulized saline. She states that she is too anxious and she just wants to go home but she will use the device at home. Therefore the patient will be discharged. She was advised to use the Aeribika device 10 times an hour to see if this helps her bring up sputum. She was advised to continue her other medications as prescribed and to follow-up with her veneer jointer operator for further treatment. Differential Diagnosis Differential diagnosis includes but is not limited to bronchitis, asthma exacerbation, pneumonia Lab Data [facility] Lab Attestation statement: I reviewed the patient's lab results. See [facility] for discussion 06/11/22 01:28 06/11/22 01:28 Labs: Lab Results 06/11/22 06/11/22 06/11/22 Range/Units 01: 01: 01:28 WBC 5.9 (4.8-10.8) X10*3/uL RBC 4.26 (4.20-5.50) X10*6/uL Hgb 11.4 L (12.0-16.0) g/dl Hct 35.6 L (37.0-47.0) % MCV 83.6 (80.0-98.0) fL MCH 26.8 L (27.0-33.0) pg MCHC 32.0 (31.0-35.0) g/dl RDW 13.2 (11.0-16.0) % Plt Count 254 (160-400) X10*3/uL MPV 9.9 (9.4-12.3) fL Immature Gran % (Auto) 0.3 (0.0-0.4) % Neut % (Auto) 56.5 (45-73) % Lymph % (Auto) 30.3 (20-40) % Whitfield % (Auto) 8.0 (2-11) % Eos % (Auto) 3.9 (0-4) % Baso % (Auto) 1.0 (0-2) % Lymph # (Auto) 1.8 (1.2-4.9) X10*3/uL Whitfield # (Auto) 0.5 (0.1-1.2) X10*3/uL Eos # (Auto) 0.2 (0.0-0.4) X10*3/uL Baso # (Auto) 0.1 (0.0-0.2) X10*3/uL Abs Immat Gran (auto) 0.02 (0.00-0.03) X10*3/uL Absolute Neuts (auto) 3.3 (2.0-8.3) x10*3/uL Absolute Nucleated RBC 0.000 (0.0-0.012) X10*3/uL Nucleated RBC % (auto) 0.0 (0.0-0.2) /100WBC Sodium 141 (135-145) mmol/L Potassium 3.2 L (3.3-5.1) mmol/L Chloride 107 (96-108) mmol/L Carbon Dioxide 24 (22-29) mmol/L Anion Gap 13 (12-20) BUN 15 (9-16) mg/dL Creatinine 0.69 (0.5-1.4) mg/dL Estim Creat Clear Calc 78.7 Estimated GFR > 60 Random Glucose 101 (60-115) mg/dL Calcium 9.4 (8.4-10.2) mg/dL Total Bilirubin 0.3 (0.0-1.0) mg/dL AST 17 (5-31) U/L ALT 27 (0-31) U/L Alkaline Phosphatase 74 (39-117) U/L Troponin I High Sens < 3.5 (<3.5-17.0) ng/L Total Protein 7.3 (6.5-8.0) g/dL Albumin 4.3 (3.5-5.0) g/dL Independent Interpretation I performed an independent interpretation of an: EKG Interpretation: My independent interpretation patient's 12 EKG as follows, sinus bradycardia with a rate of 59, normal FL, QRS and QTC intervals, no ST segment elevation, no ST segment depression, no PACs, no PVCs, except for the bradycardia this is a normal EKG. Radiology Impression Discussion of test interpretation with radiology: I have reviewed the radiologist's reading. Radiologist Impression: XR/XR chest 1V IMPRESSION: Clear lungs. Dictated By:Chano Bonilla MDSigned By:<Electronically signed by Chano Bonilla MD in OV>06/11/22 0135 Discharge Plan Discharge Clinical Impression: Acute bronchitis Patient Disposition: Home, Self-Care Instructions: Acute Bronchitis (ED) Additional Instructions: Your blood work was normal. Your EKG was normal. Your chest x-ray revealed no evidence of pneumonia which is very reassuring. Your CT scan from 05/27/2022 revealed normal lungs. The pulmonary nodule noted in your right upper lung has completely resolved. Take doxycycline 100 mg, 1 pill every 12 hours for 7 days Use the Aerobika device, 10 puffs per hour to see if this helps you bring up sputum from your chest. Follow-up with your veneer jointer operator, Dr. Hayes in 2 days. Please return to the emergency department if your symptoms get worse or if you develop any symptoms that are concerning to you. Prescriptions: New doxycycline hyclate 100 mg tablet 100 mg PO Q12H 7 Days Qty: 14 0RF No Action cetirizine 10 mg tablet 10 mg PO DAILY Qty: 90 1RF tobramycin in 0.225 % NaCl 300 mg/5 mL solution for nebulization 300 mg inhalation BID 28 Days Qty: 280 3RF Rx Instructions: separate doses by at least 6 hours, 28 days on and 28 days off Mucinex 1,200 mg tablet extended release 12hr 1,200 mg PO BID Qty: 60 0RF meclizine 25 mg tablet 25 mg PO TID PRN (Reason: dizziness) 30 Days Qty: 90 1RF fluticasone propion-salmeterol [AirDuo RespiClick] 113-14 mcg/actuation aerosol powdr breath activated 1 inh inhalation BID 30 Days Qty: 1 12RF Benefiber Healthy Shape 5 gram/7.4 gram powder PO albuterol sulfate 90 mcg/actuation HFA aerosol inhaler 2 puff inhalation Q6H PRN (Reason: shortness of breath or wheezing) 30 Days Qty: 8.5 5RF Spiriva Respimat 1.25 mcg/actuation mist 2 puff inhalation DAILY sennosides 8.6 mg tablet 17.2 mg PO BEDTIME 30 Days Qty: 60 6RF (DME) Wrist Brace Medium Misc See Rx Instructions .Route Qty: 2 0RF Rx Instructions: use nightly ipratropium-albuterol 0.5 mg-3 mg(2.5 mg base)/3 mL solution for nebulization 3 ml inhalation QID ketotifen fumarate 0.025 % (0.035 %) drops ophthalmic (eye)
[2022-06-11 05:47] VITALS: BP 128/71; PULSE 56; RESP 16; O2SAT 99
[2022-06-11] MEDS: Doxycycline Monohydrate 100 MG CAPSULE PO (05:53)
== END 2022-06-11 06:01 | disposition home or self-care (01) ==
PROVIDERS: Emergency Provider Emergency Medicine Emergency Medical Services; PCP Internal Medicine
DX: J20.9 Acute bronchitis, unspecified (principal); R07.89 Other chest pain; R06.02 Shortness of breath; Z79.899 Other long term (current) drug therapy
CPT/HCPCS: 36415; 71045; 80053; 84484; 85025; 93005; 99283; 99285

== ENCOUNTER 2022-06-14 10:58 | Outpatient (REF) | payer OTHER, SELFPAY | END 2022-06-14 10:59 | disposition home or self-care (01) | LOC: HO.MDS 10:58 | PROVIDERS: Visit Provider Internal Medicine Pulmonary Disease | DX: D80.2 Selective deficiency of immunoglobulin A [IgA] (principal) | CPT/HCPCS: 96369; J1559 ==

== ENCOUNTER 2022-06-20 11:51 | Outpatient (REF) | payer OTHER, SELFPAY | END 2022-06-20 11:52 | disposition home or self-care (01) | LOC: HO.MDS 11:51 | PROVIDERS: Visit Provider Internal Medicine Pulmonary Disease | DX: D80.2 Selective deficiency of immunoglobulin A [IgA] (principal) | CPT/HCPCS: 96369 ==

== ENCOUNTER 2022-06-27 11:28 | Outpatient (REF) | payer OTHER, SELFPAY | END 2022-06-27 11:29 | disposition home or self-care (01) | LOC: HO.MDS 11:28 | PROVIDERS: Visit Provider Internal Medicine Pulmonary Disease | DX: D80.2 Selective deficiency of immunoglobulin A [IgA] (principal) | CPT/HCPCS: 96372; J1559 ==

== ENCOUNTER 2022-07-04 11:11 | Outpatient (REF) | payer OTHER, SELFPAY | END 2022-07-04 11:12 | disposition home or self-care (01) | LOC: HO.MDS 11:11 | PROVIDERS: Visit Provider Internal Medicine Pulmonary Disease | DX: D80.2 Selective deficiency of immunoglobulin A [IgA] (principal) | CPT/HCPCS: 96369; J1559 ==

== ENCOUNTER 2022-07-11 08:45 | Outpatient (REF) | payer OTHER, SELFPAY | END 2022-07-11 08:46 | disposition home or self-care (01) | LOC: HO.MDS 08:45 | PROVIDERS: Visit Provider Internal Medicine Pulmonary Disease | DX: D80.2 Selective deficiency of immunoglobulin A [IgA] (principal) | CPT/HCPCS: 96369 ==

== ENCOUNTER 2022-07-18 08:37 | Outpatient (REF) | payer OTHER, SELFPAY | END 2022-07-18 08:38 | disposition home or self-care (01) | LOC: HO.MDS 08:37 | PROVIDERS: Visit Provider Internal Medicine Pulmonary Disease | DX: D80.2 Selective deficiency of immunoglobulin A [IgA] (principal) | CPT/HCPCS: 96369 ==

== ENCOUNTER 2022-07-25 09:46 | Outpatient (REF) | payer OTHER, SELFPAY | END 2022-07-25 09:47 | disposition home or self-care (01) | LOC: HO.MDS 09:46 | PROVIDERS: Visit Provider Internal Medicine Pulmonary Disease | DX: D80.2 Selective deficiency of immunoglobulin A [IgA] (principal) | CPT/HCPCS: 96369 ==

== ENCOUNTER 2022-07-30 09:34 | Outpatient (REF) | payer OTHER, SELFPAY ==
[2022-07-30 10:23] LABS: MANUAL DIFF FLAG NO
[2022-07-30 10:42] LABS: Eosinophils Absolute Auto 0.2 X10*3/uL (0.0-0.4); Hematocrit 37.7 % (37.0-47.0); Hemoglobin 11.9 g/dl (12.0-16.0); Imm Gran Abs Auto 0.01 X10*3/uL (0.00-0.03); Imm Gran Pct Auto 0.2 % (0.0-0.4); Lymphocytes Absolute Auto 1.5 X10*3/uL (1.2-4.9); Lymphocytes Percent Auto 36.7 % (20-40); Mean Corpuscular HGB Conc 31.6 g/dl (31.0-35.0); Mean Corpuscular Hemoglobin 26.7 pg (27.0-33.0); Mean Corpuscular Volume 84.7 fL (80.0-98.0); Mean Platelet Volume 9.9 fL (9.4-12.3); Monocytes Absolute Auto 0.3 X10*3/uL (0.1-1.2); Monocytes Percent Auto 6.5 % (2-11); Neutrophils Percent Auto 49.6 % (45-73); Platelet Count 287 X10*3/uL (160-400); Red Blood Count 4.45 X10*6/uL (4.20-5.50); Red Cell Distribution Width 13.2 % (11.0-16.0)
[2022-07-30 11:21] LABS: Appearance Urine Clear; Color Urine Yellow; Glucose Urine UA Negative (Negative); Leukocyte Esterase Urine Negative (Negative); Nitrite Urine Negative (Negative); Specific Gravity - Urine <= 1.005 (1.005-1.025); Urine Blood Negative (Negative); Urine Ketones Negative (Negative); Urine Protein Negative (Neg-Trace)
[2022-07-30 12:35] LABS: Alanine Aminotransferase 24 U/L (0-31); Albumin Level 4.4 g/dL (3.5-5.0); Alkaline Phosphatase 73 U/L (39-117); Anion Gap 9 (12-20); Aspartate Amino Transferase 18 U/L (5-31); Bilirubin Total 0.7 mg/dL (0.0-1.0); Blood Urea Nitrogen 10 mg/dL (9-16); Calcium 9.6 mg/dL (8.4-10.2); Carbon Dioxide 28 mmol/L (22-29); Chloride 109 mmol/L (96-108); Cholesterol 225 mg/dL; Estimated Glomerular Filt Rate > 60; Glucose Fasting 100 mg/dL (60-99); HDL Cholesterol 63 mg/dL; LDL Cholesterol Calculated 145 mg/dl; Potassium 4.4 mmol/L (3.3-5.1); Sodium 142 mmol/L (135-145); Total Protein 7.7 g/dL (6.5-8.0); Triglycerides 85 mg/dL
[2022-07-30 12:53] LABS: TSH reflex Free T4 3.11 uIU/mL (0.32-4.0); Vitamin D 25-OH Total 62.9 ng/mL (>30)
[2022-08-02 14:58] LABS: Immunoglobulin G Subclass 1 973 mg/dL (382-929); Immunoglobulin G Subclass 2 605 mg/dL (241-700); Immunoglobulin G Subclass 3 158 mg/dL (22-178); Immunoglobulin G Total 1775 mg/dL (600-1640)
[2022-08-03 07:03] LABS: IgA 5 mg/dL (47-310); IgG 1975 mg/dL (600-1640); IgM 87 mg/dL (50-300)
== END 2022-07-30 09:35 | disposition home or self-care (01) ==
LOC: HO.LAB 09:34
PROVIDERS: Internal Medicine; PCP Internal Medicine; Visit Provider Internal Medicine Pulmonary Disease
DX: I10 Essential (primary) hypertension (principal); E78.00 Pure hypercholesterolemia, unspecified; E55.9 Vitamin D deficiency, unspecified; D80.2 Selective deficiency of immunoglobulin A [IgA]; J41.1 Mucopurulent chronic bronchitis
CPT/HCPCS: 36415; 80053; 80061; 81003; 82306; 82784; 84443; 85025; 99212

== ENCOUNTER 2022-08-01 08:44 | Outpatient (REF) | payer OTHER, SELFPAY | END 2022-08-01 08:45 | disposition home or self-care (01) | LOC: HO.MDS 08:44 | PROVIDERS: Visit Provider Internal Medicine Pulmonary Disease | DX: D80.2 Selective deficiency of immunoglobulin A [IgA] (principal) | CPT/HCPCS: 96365; 96369; 96372 ==

== ENCOUNTER 2022-08-08 08:52 | Outpatient (REF) | payer OTHER, SELFPAY | END 2022-08-08 08:53 | disposition home or self-care (01) | LOC: HO.MDS 08:52 | PROVIDERS: Visit Provider Internal Medicine Pulmonary Disease | DX: D80.2 Selective deficiency of immunoglobulin A [IgA] (principal) | CPT/HCPCS: 96369 ==

== ENCOUNTER 2022-08-15 08:26 | Outpatient (REF) | payer OTHER, SELFPAY | END 2022-08-15 08:27 | disposition home or self-care (01) | LOC: HO.MDS 08:26 | PROVIDERS: Visit Provider Internal Medicine Pulmonary Disease | DX: D80.2 Selective deficiency of immunoglobulin A [IgA] (principal) | CPT/HCPCS: 96369 ==

== ENCOUNTER 2022-08-22 08:40 | Outpatient (REF) | payer OTHER, SELFPAY | END 2022-08-22 08:41 | disposition home or self-care (01) | LOC: HO.MDS 08:40 | PROVIDERS: Visit Provider Internal Medicine Pulmonary Disease | DX: D80.2 Selective deficiency of immunoglobulin A [IgA] (principal) | CPT/HCPCS: 96369; J1559 ==

== ENCOUNTER 2022-08-29 08:39 | Outpatient (REF) | payer OTHER, SELFPAY | END 2022-08-29 08:40 | disposition home or self-care (01) | LOC: HO.MDS 08:39 | PROVIDERS: Visit Provider Internal Medicine Pulmonary Disease | DX: D80.2 Selective deficiency of immunoglobulin A [IgA] (principal) | CPT/HCPCS: 96369; J1559 ==

== ENCOUNTER 2022-09-05 08:54 | Outpatient (REF) | payer OTHER, SELFPAY | END 2022-09-05 08:55 | disposition home or self-care (01) | LOC: HO.MDS 08:54 | PROVIDERS: Visit Provider Internal Medicine Pulmonary Disease | DX: D80.2 Selective deficiency of immunoglobulin A [IgA] (principal) | CPT/HCPCS: 96369 ==

== ENCOUNTER 2022-09-12 08:28 | Outpatient (REF) | payer OTHER, SELFPAY | END 2022-09-12 08:29 | disposition home or self-care (01) | LOC: HO.MDS 08:28 | PROVIDERS: Visit Provider Internal Medicine Pulmonary Disease | DX: D80.2 Selective deficiency of immunoglobulin A [IgA] (principal) | CPT/HCPCS: 96369; J1559 ==

== ENCOUNTER 2022-09-19 08:39 | Outpatient (REF) | payer OTHER, SELFPAY | END 2022-09-19 08:40 | disposition home or self-care (01) | LOC: HO.MDS 08:39 | PROVIDERS: Visit Provider Internal Medicine Pulmonary Disease | DX: D80.2 Selective deficiency of immunoglobulin A [IgA] (principal) | CPT/HCPCS: 96369 ==

== ENCOUNTER 2022-09-26 08:28 | Outpatient (REF) | payer OTHER, SELFPAY | END 2022-09-26 08:29 | disposition home or self-care (01) | LOC: HO.MDS 08:28 | PROVIDERS: Visit Provider Internal Medicine Pulmonary Disease | DX: D80.2 Selective deficiency of immunoglobulin A [IgA] (principal) | CPT/HCPCS: 96369; J1559 ==

== ENCOUNTER 2022-10-02 11:39 | Outpatient (AMB) | payer OTHER, SELFPAY ==
--- NOTE | 2022-10-02 11:42 | MHC.OFFVIS ---
Intake Vital Signs 10/02/22 11:54 Height 5 ft 5 in Weight 145 lb BMI 24.1 BP 128/80 Pulse 80 Pulse Oximetry (%) 98 Intake Visit Reasons: IGA deficiency Allergies No Known Allergies Allergy (Verified 10/02/22 11:42) HPI IGA deficiency HPI Details 56-year-old lady, nonsmoker, followed for underlying severe persistent allergic asthma, pulmonary nodules, and severe IgA deficiency. Her SS/Ro antibody is positive.? Patient is following up with strapper operator.?She was tried on Fasenra with no significant response.? She continues on Hizentra with significantly improved control of her underlying recurrent mucopurulent bronchitis.? She denies any recent exacerbations.? Her serologies are also improved. [facility] Medical History BARRON positive Anemia Asthma Blood D-dimer assay positive Chronic constipation Chronic pain syndrome Depression Fibromyalgia Left lumbar radiculopathy Lumbar degenerative disc disease Lump of skin Multiple allergies Myofascial pain syndrome Neck pain Overweight (BMI 25.0-29.9) Primary osteoarthritis of hands, bilateral Pure hypercholesterolemia Sacroiliitis Spondylosis without myelopathy or radiculopathy, cervical region SS-A antibody positive Surgical History History of esophagogastroduodenoscopy (EGD) History of total abdominal hysterectomy Hx of colonoscopy Family History Father Myocardial infarction Stomach cancer Mother Myocardial infarction Osteoporosis Diabetes Brother HIV (human immunodeficiency virus infection) Sister In good health Social History Housing: Apartment Alcohol intake: never Patient Tobacco Use Status: Never used Tobacco e-Cigarette/Vaping Use: Never Used Second Hand Smoke Exposure: No service: No Current occupational status: retired and disabled Cognitive needs: No Hearing needs: No Vision needs: Yes Review of Systems Const Denies daytime sleepiness, Denies excessive sweating, Denies fatigue, Denies fever(s), Denies lethargy, Denies malaise, Denies night sweats, Denies snoring and Denies weight loss Eyes Denies blurry vision and Denies itchy eyes ENT Denies nasal congestion, Denies post nasal drip, Denies sinus pain, Denies sinus pressure and Denies other ( Thrush) Card Denies chest pain, Denies pedal edema, Denies dyspnea, Denies orthopnea and Denies paroxysmal nocturnal dyspnea Resp Denies cough, Denies hemoptysis, Denies excessive phlegm production, Denies dyspnea, Denies snoring and Denies wheezing GI Denies abdominal pain and Denies heartburn Musc Denies myalgias, Denies arthralgias and Denies joint swelling Skin/Breast Denies rash Neuro Denies memory loss and Denies seizure-like activity Psych Denies abnormal sleep pattern, Denies anxiety and Denies memory loss Endo Denies excessive sweating, Denies fatigue and Denies heat intolerance Toño/Lymph Denies easy bruising Aller/Immun Denies itchy eyes, Denies seasonal rhinorrhea and Denies wheezing Physical Exam Vital Signs: Last Vital Signs Pulse 80 10/02/22 11:54 BP 128/80 10/02/22 11:54 Pulse Ox 98 10/02/22 11:54 BMI result Body Mass Index 24.1 Const General: no acute distress and alert Nutritional Appearance: not obese Orientation/consciousness: Other orientation findings ( oriented) HEENT Head: Yes atraumatic Eyes General: appearance normal, both eyes and all related structures Sclerae: sclerae normal EOM: EOMs intact bilaterally Neck Neck: Yes supple Lymphatic: no lymphadenopathy noted Resp Effort & Inspection: normal respiratory effort and no use of accessory muscles Auscultation: clear to auscultation bilaterally Cardio Rate: regular rate Rhythm: regular rhythm Heart sounds: no gallops, no murmurs and no rubs Skin General skin exam: other ( warm) Extrem General: No clubbing, No cyanosis and No edema Assessment & Plan Assessment & Plan (1) Asthma: Code(s): J45.909 - Unspecified asthma, uncomplicated Qualifiers: Asthma complication type: with acute exacerbation Asthma persistence: persistent Asthma severity: severe Qualified Code(s): J45.51 - Severe persistent asthma with (acute) exacerbation Plan: Well controlled on air duo, duo nebs, and albuterol MDI. Continue current regimen. (2) IgA deficiency, selective: Code(s): D80.2 - Selective deficiency of immunoglobulin A [IgA] Plan: Significant improvement on Hizentra. Continue current regimen. (3) Bronchitis, mucopurulent recurrent: Code(s): J41.1 - Mucopurulent chronic bronchitis Plan: Significant improvement on Hizentra. Continue current regimen. Coding Level of Care Code Est Pt Level 4 (05778) Diagnoses Asthma J45.51 Asthma complication type: with acute exacerbation Asthma persistence: persistent Asthma severity: severe IgA deficiency, selective D80.2 Bronchitis, mucopurulent recurrent J41.1
[2022-10-02 11:54] VITALS: BP 128/80; PULSE 80; O2SAT 98; BMI 24.1
== END 2022-10-02 11:53 | disposition home or self-care (01) ==
PROVIDERS: PCP Internal Medicine; Visit Provider Internal Medicine Pulmonary Disease
DX: J45.51 Severe persistent asthma with (acute) exacerbation (principal); D80.2 Selective deficiency of immunoglobulin A [IgA]; J41.1 Mucopurulent chronic bronchitis
CPT/HCPCS: 99214

== ENCOUNTER → 2022-10-02 11:39 | Outpatient (BNVA) | payer OTHER, SELFPAY | PROVIDERS: PCP Internal Medicine; Visit Provider Internal Medicine Pulmonary Disease | DX: J45.41 Moderate persistent asthma with (acute) exacerbation (principal); J41.1 Mucopurulent chronic bronchitis; D80.2 Selective deficiency of immunoglobulin A [IgA] | CPT/HCPCS: 99212 ==

== ENCOUNTER 2022-10-03 08:25 | Outpatient (REF) | payer OTHER, SELFPAY | END 2022-10-03 08:26 | disposition home or self-care (01) | LOC: HO.MDS 08:25 | PROVIDERS: Visit Provider Internal Medicine Pulmonary Disease | DX: D80.2 Selective deficiency of immunoglobulin A [IgA] (principal) | CPT/HCPCS: 96365; 96369; 96372; J1559 ==

== ENCOUNTER 2022-10-10 08:30 | Outpatient (REF) | payer OTHER, SELFPAY | END 2022-10-10 08:31 | disposition home or self-care (01) | LOC: HO.MDS 08:30 | PROVIDERS: Visit Provider Internal Medicine Pulmonary Disease | DX: D50.8 Other iron deficiency anemias (principal) | CPT/HCPCS: 96369; J1559 ==

== ENCOUNTER 2022-10-17 08:27 | Outpatient (REF) | payer OTHER, SELFPAY | END 2022-10-17 08:28 | disposition home or self-care (01) | LOC: HO.MDS 08:27 | PROVIDERS: Visit Provider Internal Medicine Pulmonary Disease | DX: D80.2 Selective deficiency of immunoglobulin A [IgA] (principal) | CPT/HCPCS: 96369; J1559 ==

== ENCOUNTER 2022-10-24 08:29 | Outpatient (REF) | payer OTHER, SELFPAY | END 2022-10-24 08:30 | disposition home or self-care (01) | LOC: HO.MDS 08:29 | PROVIDERS: Visit Provider Internal Medicine Pulmonary Disease | DX: D80.2 Selective deficiency of immunoglobulin A [IgA] (principal) | CPT/HCPCS: 96369; J1559 ==

== ENCOUNTER 2022-10-31 08:33 | Outpatient (REF) | payer OTHER, SELFPAY | END 2022-10-31 08:34 | disposition home or self-care (01) | LOC: HO.MDS 08:33 | PROVIDERS: Visit Provider Internal Medicine Pulmonary Disease | DX: D80.2 Selective deficiency of immunoglobulin A [IgA] (principal) | CPT/HCPCS: 96369; J1559 ==

== ENCOUNTER 2022-11-07 08:28 | Outpatient (REF) | payer OTHER, SELFPAY | END 2022-11-07 08:29 | disposition home or self-care (01) | LOC: HO.MDS 08:28 | PROVIDERS: Visit Provider Internal Medicine Pulmonary Disease | DX: D80.2 Selective deficiency of immunoglobulin A [IgA] (principal) | CPT/HCPCS: 96369; J1559 ==

== ENCOUNTER 2022-11-12 10:13 | Outpatient (AMB) | payer OTHER, SELFPAY ==
[2022-11-12 10:15] VITALS: BMI 23.6
--- NOTE | 2022-11-12 10:15 | A.OFFVIS_ITS ---
Intake Vital Signs 11/12/22 10:15 Height 5 ft 5 in Weight 142 lb BMI 23.6 Intake Visit Reasons: MAXILLOFACIAL PROSTHETICS DENTIST/PCP for VV Intake Note: MAXILLOFACIAL PROSTHETICS DENTIST/ VV bilateral LE, pt states that they are located up on her thighs, pt states she has pain , itching and burning, with or without ambulation and even at night. Pt states that she has history of venous injections almost 30 years ago Accompanied by: Self / Same As Patient Allergies No Known Allergies Allergy (Verified 11/12/22 10:19) HPI MAXILLOFACIAL PROSTHETICS DENTIST/PCP for VV HPI Details Pleasant 57-year-old female patient presents for painful varicose veins. Complaints include pain over varicosities, swelling of lower extremities, cramping, fatigue, and heaviness of the lower extremities. It has been affecting there daily activities including walking. It is noted more so in right leg. In particular she has significantly large posterior thigh varicosities which have been a source of discomfort for her. Patient reports prior sclero injections many years ago Patient denies any history of DVT/ PE. Patient denies any history of phlebitis. Trial of compression includes - [id number] They now present for vascular evaluation regarding their varicose veins. [facility] Medical History BARRON positive Anemia Asthma Blood D-dimer assay positive Chronic constipation Chronic pain syndrome Depression Fibromyalgia Left lumbar radiculopathy Lumbar degenerative disc disease Lump of skin Multiple allergies Myofascial pain syndrome Neck pain Overweight (BMI 25.0-29.9) Primary osteoarthritis of hands, bilateral Pure hypercholesterolemia Sacroiliitis Spondylosis without myelopathy or radiculopathy, cervical region SS-A antibody positive Surgical History History of esophagogastroduodenoscopy (EGD) History of total abdominal hysterectomy Hx of colonoscopy Family History Father Myocardial infarction Stomach cancer Mother Myocardial infarction Osteoporosis Diabetes Brother HIV (human immunodeficiency virus infection) Sister In good health Social History Housing: Apartment Alcohol intake: never Patient Tobacco Use Status: Never used Tobacco e-Cigarette/Vaping Use: Never Used Second Hand Smoke Exposure: No service: No Current occupational status: retired and disabled Cognitive needs: No Hearing needs: No Vision needs: Yes Review of Systems Const Reports as per HPI ENT Reports no additional complaints Card Denies chest pain, Denies chest pain at rest and Denies chest pain with activity Resp Denies chest congestion and Denies cough GI Reports no additional complaints Musc Details: pain over varicosities, aching of lower extremities, swelling, cramping, heaviness and tiredness, itching Denies abnormal gait Skin/Breast Reports pruritus and Denies wounds Neuro Reports no additional complaints and Denies abnormal gait Psych Denies no additional complaints Physical Exam Vital Signs: BMI result Body Mass Index 23.6 Const General: cooperative, healthy appearing and comfortable Orientation/consciousness: oriented to person, oriented to place and oriented to time Neck Carotids: no bruits Chest Chest palpation & inspection: normal inspection of the chest and normal palpation of entire chest wall Resp Effort & Inspection: normal respiratory effort and able to speak in complete sentences Cardio Rate: regular rate Heart sounds: S1 normal heart sound present and S2 normal heart sound present Peripheral pulses: Peripheral pulses 2+ throughout GI Inspection: Yes normal to inspection Skin Other: +2 edema, large rope-like varicosities greater than 4 mm bilateral posterior thigh CEAP Classification C4 - skin color changes Ep - Etiology Primary As - superficial veins P - reflux General skin exam: dry skin Neuro General: oriented to person, oriented to place and oriented to time Extrem Right lower extremity: full ROM, normal capillary refill and edema Left lower extremity: full ROM, normal capillary refill and edema Psych Mental Status: mental status grossly normal Assessment & Plan Assessment & Plan (1) Varicose veins of right lower extremity with inflammation: Code(s): I83.11 - Varicose veins of right lower extremity with inflammation Plan: In short, the patient has evidence of venous insufficiency. I have discussed the pathophysiology with the patient. In addition I have provided informational material regarding venous disease to the patient. We have discussed conservative measures including compression, elevation, and exercise. I have also provided a handout regarding appropriate use of compression stockings and where to purchase good compression stockings as well. I have taken the liberty of ordering venous insufficiency testing with the patient. They will follow up with me after testing. The patient had an opportunity to ask questions regarding the treatment plan. All questions were answered. Imaging studies, laboratory studies and physical exam results were discussed and reviewed in detail. No major barriers to understanding were identified. The patient expressed understanding and agreement with the above treatment plan. The patient is aware they should contact our office by phone for worsening of the current condition or the maximo earance of new symptoms. Thank you for allowing me to participate in the vascular care of this patient. If you have any questions or concerns regarding the treatment for the above condition please do not hesitate to contact me. The office telephone contact is [phone]. This note is constructed using voice recognition software. While every effort has been made to ensure accuracy, field operator errors may have been included. Thank you for allowing me to participate in the care of your patient. Yours sincerely, Shawn Cheek MD, FACS, R.P.V.I. Orders: Orders US venous duplex LE BI 1 Week I83.11 - Varicose veins of right lower extremity with inflammation Coding Level of Care Code New Pt Level 4 (90238) Diagnoses Varicose veins of right lower extremity with inflammation I83.11
== END 2022-11-12 10:46 | disposition home or self-care (01) ==
PROVIDERS: PCP Internal Medicine; Visit Provider Surgery Vascular Surgery
DX: I83.11 Varicose veins of right lower extremity with inflammation (principal)
CPT/HCPCS: 99203

== ENCOUNTER → 2022-11-12 10:13 | Outpatient (BNVA) | payer OTHER, SELFPAY | PROVIDERS: PCP Internal Medicine; Visit Provider Surgery Vascular Surgery | DX: I83.11 Varicose veins of right lower extremity with inflammation (principal) | CPT/HCPCS: 99202 ==

== ENCOUNTER 2022-11-14 08:36 | Outpatient (REF) | payer OTHER, SELFPAY | END 2022-11-14 08:37 | disposition home or self-care (01) | LOC: HO.MDS 08:36 | PROVIDERS: Visit Provider Internal Medicine Pulmonary Disease | DX: D80.2 Selective deficiency of immunoglobulin A [IgA] (principal) | CPT/HCPCS: 96369 ==

== ENCOUNTER 2022-11-19 07:48 | Outpatient (AMB) | payer OTHER, SELFPAY ==
--- NOTE | 2022-11-19 07:53 | A.OFFVIS_ITS ---
Intake Vital Signs 11/19/22 07:54 Height 5 ft 5 in Weight 149 lb 4.047 oz BMI 24.8 BP 122/78 Blood Pressure Location Rt brachial Position Sitting Pulse 60 Pulse Source Pulse Oximeter Temp 97.7 F Temp Source Skin Pulse Oximetry (%) 99 Intake Visit Reasons: f/u to re-evaluate pain Intake Note: Here to re-evaluate pain. c/o bone spurs on both shoulders causing neck pain, difficulty falling asleep with onset of one month, worsening in the last week. 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 Required: No Information Interpreted: clinical only Allergies No Known Allergies Allergy (Verified 11/19/22 07:54) Medication List - Last Reconciled 11/19/22 by Dinesh Camargo MD albuterol sulfate 90 mcg/actuation 2 puffs inhalation Q6H PRN 30 days arm brace (Wrist Brace Medium) use nightly cetirizine 10 mg PO DAILY immun glob G(IgG)-pro-IgA 0-50 4 gram/20 mL (20 %) (Hizentra) mL subcut ipratropium-albuterol 0.5 mg-3 mg(2.5 mg base)/3 mL 3 mL inhalation QID ketotifen fumarate 0.025%(0.035%) drps ophthalmic (eye) meclizine 25 mg PO TID PRN 30 days HPI HPI Comments History of Present Illness Details The patient comes in with shoulder pain. I had injected the left shoulder back in March and that seemingly had helped her up until the past 2 months. There was no new injury. Pain is over the top of the shoulder where she feels some prominence at the acromioclavicular joint. There are no hand paresthesias currently. Occasionally she gets some pain in the right shoulder and in the left upper back region. [facility] Medical History BARRON positive Anemia Asthma Blood D-dimer assay positive Chronic constipation Chronic pain syndrome Depression Fibromyalgia Left lumbar radiculopathy Lumbar degenerative disc disease Lump of skin Multiple allergies Myofascial pain syndrome Neck pain Overweight (BMI 25.0-29.9) Primary osteoarthritis of hands, bilateral Pure hypercholesterolemia Sacroiliitis Spondylosis without myelopathy or radiculopathy, cervical region SS-A antibody positive Surgical History History of esophagogastroduodenoscopy (EGD) History of total abdominal hysterectomy Hx of colonoscopy Family History Father Myocardial infarction Stomach cancer Mother Myocardial infarction Osteoporosis Diabetes Brother HIV (human immunodeficiency virus infection) Sister In good health Social History Housing: Apartment Alcohol intake: never Patient Tobacco Use Status: Never used Tobacco e-Cigarette/Vaping Use: Never Used Second Hand Smoke Exposure: No service: No Current occupational status: retired and disabled Cognitive needs: No Hearing needs: No Vision needs: Yes Review of Systems Const Details: Negative for appetite change, weight change, fever, chills, malaise and fatigue Card Details: Negative chest pain, edema and syncope Resp Details: Negative for SOB, cough and wheezing GI Details: Negative indigestion/heartburn, nausea, abdominal pain, bowel changes, diarrhea, constipation and bloody stool. Toño/Lymph Details: Negative for excessive bruising or bleeding. Physical Exam Vital Signs: Last Vital Signs Temp 97.7 F 11/19/22 07:54 Pulse 60 11/19/22 07:54 BP 122/78 11/19/22 07:54 Pulse Ox 99 11/19/22 07:54 BMI result Body Mass Index 24.8 APPEARANCE: Patient in no acute distress Cervical Spine:.? Full range of motion without pain; no tenderness. Thoracic Spine:.? No scoliosis.? Some left paraspinal tenderness on palpation. Lumbar Spine:.? Alignment normal.? Mild pain with extremes of motion.? No tenderness. Chest Wall:.? No tenderness, swelling, increased warmth or erythema. Shoulders:? Right:?? Full range of motion with slight discomfort at the extremes of motion felt over the top of the shoulder. She also has some minimal anterior tenderness.? No adenopathy, weakness, swelling, increased warmth or erythema.? Left: Mild pain with abduction at 135 degrees or with more than 20 degrees of internal or external rotation.? There is mild anterior, AC joint and subacromial tenderness without swelling or adenopathy.? No abductor weakness. EXTREMITIES: No edema, no calf tenderness, normal peripheral pulses. Results Reviewed Results Reviewed: [address] [address] XRay Report Signed Patient: Candida Massey MR#: [id number] : 1965 Acct:[id number] Age/Sex: 56 / F ADM Date: 04/08/22 Ordering Physician: Dinesh Camargo MD Date of Service: 04/08/22 Procedure(s): XR shoulder LT min 2V Accession Number(s): [id number] cc: Dinesh Camargo MD~ EXAMINATION: XR SHOULDER, LEFT CLINICAL INFORMATION: Pain in left shoulder? COMPARISON: None? TECHNIQUE: AP external rotation, Grashey, scapular Y, and axillary views of the left shoulder. FINDINGS: No fracture. No dislocation. Visualized left lung and ribs are normal. XR/XR shoulder LT min 2V IMPRESSION: No acute osseous abnormality of the left shoulder. Dictated By: Miki Ware MD Assessment & Plan Assessment & Plan (1) Tendonitis of left rotator cuff: Code(s): M75.82 - Other shoulder lesions, left shoulder Plan She has had some recurrence of left shoulder pain. Again this looks more like the picture of some rotator cuff tendinitis although the abduction range of motion is relatively well preserved. I think we should try a course of physical therapy and oral diclofenac. Follow-up in 2 months is recommended. If she is not improving at that time we would proceed with imaging and orthopedic referral. Orders: Orders PT Evaluation and Treatment Today M75.82 - Other shoulder lesions, left shoulder Medications: New diclofenac sodium take with food 75 mg PO BID 60 tabs 2RF Coding Level of Care Code Est Pt Level 3 (63247) Diagnoses Tendonitis of left rotator cuff M75.82
[2022-11-19 07:54] VITALS: BP 122/78; PULSE 60; TEMP 36.5; O2SAT 99; BMI 24.8
== END 2022-11-19 09:25 | disposition home or self-care (01) ==
PROVIDERS: PCP Internal Medicine; Visit Provider Internal Medicine Rheumatology
DX: M75.82 Other shoulder lesions, left shoulder (principal)
CPT/HCPCS: 99213

== ENCOUNTER 2022-11-19 11:51 | Outpatient (REF) | payer OTHER, SELFPAY | END 2022-11-19 11:52 | disposition home or self-care (01) | LOC: HO.MDS 11:51 | PROVIDERS: Visit Provider Internal Medicine Pulmonary Disease | DX: D80.2 Selective deficiency of immunoglobulin A [IgA] (principal); M75.82 Other shoulder lesions, left shoulder | CPT/HCPCS: 96369; 99212; J1559 ==

== ENCOUNTER 2022-11-28 09:25 | Outpatient (REF) | payer OTHER, SELFPAY | END 2022-11-28 09:26 | disposition home or self-care (01) | LOC: HO.MDS 09:25 | PROVIDERS: Visit Provider Internal Medicine Pulmonary Disease | DX: D80.2 Selective deficiency of immunoglobulin A [IgA] (principal) | CPT/HCPCS: 96369 ==

== ENCOUNTER 2022-12-06 10:13 | Outpatient (REF) | payer OTHER, SELFPAY ==
--- NOTE | ~2022-12-06 | US_ITS ---
EXAMINATION: US LOWER EXTREMITY VENOUS (REFLUX EXAM), BILATERAL CLINICAL INDICATION: Varicose veins COMPARISON: None. TECHNIQUE: Color flow triplex imaging and compression Doppler was performed to evaluate both the deep and the superficial systems bilaterally. To evaluate the superficial system, the examination was performed in the upright position. Color-flow Doppler ultrasound and compression ultrasound were utilized. In addition, maneuvers were utilized to demonstrate reflux. FINDINGS: 1. DEEP VENOUS ULTRASOUND OF THE RIGHT LOWER EXTREMITY: Common Femoral Vein: Compressible, normal respiratory variation and augmented flow. Femoral Vein: Compressible, normal color flow and augmentation. Popliteal Vein: Compressible, normal augmentation. Deep Reflux: There is no evidence of reflux in the deep system in either the common femoral vein or the popliteal vein. There is no evidence of a Palafox's cyst. 2. SUPERFICIAL ULTRASOUND WITH DOPPLER OF RIGHT LOWER EXTREMITY: GREAT SAPHENOUS VEIN: Saphenofemoral Junction: 0.6 cm; Reflux: 0 ms Proximal Thigh: 0.2 cm; Reflux: 0 ms Mid Thigh: 0.2 cm; Reflux: 0 ms Above Knee: 0.2 cm; Reflux: 0 ms At Knee: 0.2 cm; Reflux: 0 ms Below Knee: 0.2 cm; Reflux: 0 ms Mid Calf: 0.2 cm; Reflux: 0 ms Ankle: 0.2 cm; Reflux: 0 ms DUPLICATED MEDIAL GREAT SAPHENOUS VEIN: Diameter: None imaged Reflux: NA DUPLICATED LATERAL GREAT SAPHENOUS VEIN: Diameter: 0.3 cm Reflux: NA SMALL SAPHENOUS VEIN: Proximal: 0.3 cm; Reflux: 0 ms Distal: 0.2 cm; Reflux: 0 ms VEIN OF GIACOMINI: Size: NA Reflux: NA PERFORATORS: Location: Distal calf perforators Size: 0.2 cm Reflux: 1668ms (33 cm from the heel) VARICOSITIES: Location: Proximal calf Size: 0.13 cm Reflux: NA 3. DEEP VENOUS ULTRASOUND OF THE LEFT LOWER EXTREMITY: Common Femoral Vein: Compressible, normal respiratory variation and augmented flow. Femoral Vein: Compressible, normal color flow and augmentation. Popliteal Vein: Compressible, normal augmentation. Deep Reflux: There is no evidence of reflux in the deep system in either the common femoral vein or the popliteal vein. There is no evidence of a Palafox's cyst. 4. SUPERFICIAL ULTRASOUND WITH DOPPLER OF LEFT LOWER EXTREMITY: GREAT SAPHENOUS VEIN: Saphenofemoral Junction: 0.4 cm; Reflux: 0 ms Proximal Thigh: 0.4 cm; Reflux: 0 ms Mid Thigh: 0.2 cm; Reflux: 0 ms Above Knee: 0.1 cm; Reflux: 0 ms At Knee: 0.3 cm; Reflux: 0 ms Below Knee: 0.2 cm; Reflux: 0 ms Mid Calf: 0.2 cm; Reflux: 0 ms Ankle: 0.2 cm; Reflux: 0 ms DUPLICATED MEDIAL GREAT SAPHENOUS VEIN: Diameter: None imaged Reflux: NA DUPLICATED LATERAL GREAT SAPHENOUS VEIN: Diameter: None imaged Reflux: NA SMALL SAPHENOUS VEIN: Proximal: 0.2 cm; Reflux: 0 ms Distal: 0.3 cm; Reflux: 0 ms VEIN OF GIACOMINI: Size: NA Reflux: NA PERFORATORS: Location: [place] Size: 0.3 cm Reflux: NA VARICOSITIES: Location: None Imaged Size: NA Reflux: NA US/US venous duplex LE BI IMPRESSION: 1. Right distal calf ceramic engineer reflux. 2. No significant reflux in the bilateral great or small saphenous veins. 3. No DVT or deep venous insufficiency.
== END 2022-12-06 10:14 | disposition home or self-care (01) ==
LOC: HO.US 10:13
PROVIDERS: PCP Internal Medicine; Visit Provider Surgery Vascular Surgery
DX: I83.11 Varicose veins of right lower extremity with inflammation (principal)
CPT/HCPCS: 93970

== ENCOUNTER 2022-12-12 09:27 | Outpatient (REF) | payer OTHER, SELFPAY | END 2022-12-12 09:28 | disposition home or self-care (01) | LOC: HO.MDS 09:27 | PROVIDERS: Visit Provider Internal Medicine Pulmonary Disease | DX: D80.2 Selective deficiency of immunoglobulin A [IgA] (principal) | CPT/HCPCS: 96369 ==

== ENCOUNTER 2022-12-19 09:26 | Outpatient (REF) | payer OTHER, SELFPAY | END 2022-12-19 09:27 | disposition home or self-care (01) | LOC: HO.MDS 09:26 | PROVIDERS: Visit Provider Internal Medicine Pulmonary Disease | DX: D80.2 Selective deficiency of immunoglobulin A [IgA] (principal) | CPT/HCPCS: 96369; J1559 ==

== ENCOUNTER 2022-12-26 09:21 | Outpatient (REF) | payer OTHER, SELFPAY | END 2022-12-26 09:22 | disposition home or self-care (01) | LOC: HO.MDS 09:21 | PROVIDERS: PCP Internal Medicine; Visit Provider Internal Medicine Pulmonary Disease | DX: D80.2 Selective deficiency of immunoglobulin A [IgA] (principal) | CPT/HCPCS: 96369 ==

== ENCOUNTER 2023-01-02 09:34 | Outpatient (REF) | payer OTHER, SELFPAY | END 2023-01-02 09:35 | disposition home or self-care (01) | LOC: HO.MDS 09:34 | PROVIDERS: Visit Provider Internal Medicine Pulmonary Disease | DX: D80.2 Selective deficiency of immunoglobulin A [IgA] (principal) | CPT/HCPCS: 96369 ==

== ENCOUNTER 2023-01-08 13:06 | Outpatient (AMB) | payer OTHER, SELFPAY ==
[2023-01-08 13:11] VITALS: BP 126/84; PULSE 59; O2SAT 98; BMI 24.5
--- NOTE | 2023-01-08 13:11 | A.OFFVIS_ITS ---
Intake Vital Signs 01/08/23 13:11 Height 5 ft 5 in Weight 147 lb BMI 24.5 BP 126/84 Blood Pressure Location Lt brachial Position Sitting Pulse 59 Pulse Source Doppler Pulse Oximetry (%) 98 Oxygen Delivery Method Room Air Intake Visit Reasons: IGA deficiency/ SICK Apprentice Funeral Director Required: Yes Apprentice Funeral Director Name: Chelsey José Antonio Shipley Allergies No Known Allergies Allergy (Verified 01/08/23 13:14) HPI IGA deficiency/ SICK HPI Details 57-year-old lady, nonsmoker, followed fo r underlying severe persistent allergic asthma, pulmonary nodules, and severe IgA deficiency. Her SS/Ro antibody is positive.? Patient is following up with senior it assistant.?She was tried on Fasenra with no significant response.? She continues on Hizentra with significantly improved control of her underlying recurrent mucopurulent bronchitis.? Today she complains of a exacerbation of the last 2-3 weeks after weather change to cooler temperatures symptomatic with mostly dry cough, intermittently productive of whitish sputum at night, also nasal congestion. [facility] Medical History BARRON positive Anemia Asthma Blood D-dimer assay positive Chronic constipation Chronic pain syndrome Depression Fibromyalgia Left lumbar radiculopathy Lumbar degenerative disc disease Lump of skin Multiple allergies Myofascial pain syndrome Neck pain Overweight (BMI 25.0-29.9) Primary osteoarthritis of hands, bilateral Pure hypercholesterolemia Sacroiliitis Spondylosis without myelopathy or radiculopathy, cervical region SS-A antibody positive Surgical History History of esophagogastroduodenoscopy (EGD) History of total abdominal hysterectomy Hx of colonoscopy Family History Father Myocardial infarction Stomach cancer Mother Myocardial infarction Osteoporosis Diabetes Brother HIV (human immunodeficiency virus infection) Sister In good health Social History Housing: Apartment Alcohol intake: never Patient Tobacco Use Status: Never used Tobacco e-Cigarette/Vaping Use: Never Used Second Hand Smoke Exposure: No service: No Current occupational status: retired and disabled Cognitive needs: No Hearing needs: No Vision needs: Yes Review of Systems Const Denies daytime sleepiness, Denies excessive sweating, Denies fatigue, Denies fever(s), Denies lethargy, Reports malaise, Denies night sweats, Denies snoring and Denies weight loss Eyes Denies blurry vision and Denies itchy eyes ENT Reports nasal congestion, Denies post nasal drip, Denies sinus pain, Denies sinus pressure and Denies other ( Thrush) Card Denies chest pain, Denies pedal edema, Denies dyspnea, Denies orthopnea and D enies paroxysmal nocturnal dyspnea Resp Reports cough, Denies hemoptysis, Denies excessive phlegm production, Denies dyspnea, Denies snoring and Denies wheezing GI Denies abdominal pain and Denies heartburn Musc Denies myalgias, Denies arthralgias and Denies joint swelling Skin/Breast Denies rash Neuro Denies memory loss and Denies seizure-like activity Psych Denies abnormal sleep pattern, Denies anxiety and Denies memory loss Endo Denies excessive sweating, Denies fatigue and Denies heat intolerance Toño/Lymph Denies easy bruising Aller/Immun Denies itchy eyes, Denies seasonal rhinorrhea and Denies wheezing Physical Exam Vital Signs: Last Vital Signs Pulse 59 01/08/23 13:11 BP 126/84 01/08/23 13:11 Pulse Ox 98 01/08/23 13:11 Oxygen Delivery Method Room Air 01/08/23 13:11 BMI result Body Mass Index 24.5 Const General: no acute distress and alert Nutritional Appearance: not obese Orientation/consciousness: Other orientation findings ( oriented) HEENT Head: Yes atraumatic Eyes General: appearance normal, both eyes and all related structures Sclerae: sclerae normal EOM: EOMs intact bilaterally Neck Neck: Yes supple Lymphatic: no lymphadenopathy noted Resp Effort & Inspection: normal respiratory effort and no use of accessory muscles Auscultation: clear to auscultation bilaterally Cardio Rate: regular rate Rhythm: regular rhythm Heart sounds: no gallops, no murmurs and no rubs Skin General skin exam: other ( warm) Extrem General: No clubbing, No cyanosis and No edema Assessment & Plan Assessment & Plan (1) Asthma: Code(s): J45.909 - Unspecified asthma, uncomplicated Qualifiers: Asthma severity: severe Asthma persistence: persistent Asthma complication type: with acute exacerbation Qualified Code(s): J45.51 - Severe persistent asthma with (acute) exacerbation Plan: Baseline controlled on DuoNebs and albuterol MDI. Continue current regimen. (2) IgA deficiency, selective: Code(s): D80.2 - Selective deficiency of immunoglobulin A [IgA] Plan: Significantly decreased episodes of recurrent mucopurulent bronchitis. Continue and subcutaneous Ig. (3) Environmental allergies: Code(s): Z91.09 - Other allergy status, other than to drugs and biological substances Plan: Now with exacerbation of symptoms with weather changes to cooler temperatures. Will treat with a prednisone taper. Will obtain chest x-ray. Orders: Orders XR chest 2V Today R05.9 - Cough, unspecified Medications: New prednisone Take four tabs daily for 5 days, then go down by 1 tab every 5 days. 10 mg PO DIRECTED 50 tabs 0RF Coding Level of Care Code Est Pt Level 4 (21444) Diagnoses Severe persistent asthma with acute exacerbation J45.51 Asthma severity: severe Asthma persistence: persistent Asthma complication type: with acute exacerbation IgA deficiency, selective D80.2 Environmental allergies Z91.09
== END 2023-01-08 13:32 | disposition home or self-care (01) ==
PROVIDERS: PCP Internal Medicine; Visit Provider Internal Medicine Pulmonary Disease
DX: J45.51 Severe persistent asthma with (acute) exacerbation (principal); D80.2 Selective deficiency of immunoglobulin A [IgA]; Z91.09 Other allergy status, other than to drugs and biological substances
CPT/HCPCS: 99214

== ENCOUNTER → 2023-01-08 13:06 | Outpatient (BNVA) | payer OTHER, SELFPAY | PROVIDERS: PCP Internal Medicine; Visit Provider Internal Medicine Pulmonary Disease | DX: J45.51 Severe persistent asthma with (acute) exacerbation (principal); D80.2 Selective deficiency of immunoglobulin A [IgA]; Z91.09 Other allergy status, other than to drugs and biological substances | CPT/HCPCS: 99212 ==

== ENCOUNTER 2023-01-13 10:19 | Outpatient (REF) | payer OTHER, SELFPAY ==
--- NOTE | ~2023-01-13 | XR_ITS ---
EXAMINATION: XR CHEST 2 VIEWS CLINICAL INFORMATION: Cough. COMPARISON: Chest radiograph dated 06/11/2022; CT chest dated 05/27/2022. TECHNIQUE: Frontal and lateral views of the chest were obtained. FINDINGS: The heart, great vessels, pulmonary vasculature and mediastinum are normal. The lungs show no focal infiltrate, effusion or pneumothorax. There is no acute osseous abnormality. XR/XR chest 2V IMPRESSION: No active cardiopulmonary disease.
== END 2023-01-13 10:20 | disposition home or self-care (01) ==
LOC: HO.MDS 10:19
PROVIDERS: Visit Provider Internal Medicine Pulmonary Disease
DX: D80.2 Selective deficiency of immunoglobulin A [IgA] (principal); R05.9 Cough, unspecified
CPT/HCPCS: 71046; 96369

== ENCOUNTER 2023-01-13 11:32 | Outpatient (REF) | payer OTHER, SELFPAY | END 2023-01-13 11:33 | disposition home or self-care (01) | LOC: HO.XRAY 11:32 | PROVIDERS: PCP Internal Medicine; Visit Provider Internal Medicine Pulmonary Disease | DX: Z13.89 Encounter for screening for other disorder (principal) ==

== ENCOUNTER → 2023-01-14 09:19 | Outpatient (BNVA) | payer OTHER, SELFPAY | PROVIDERS: PCP Internal Medicine; Visit Provider Internal Medicine Rheumatology ==

== ENCOUNTER 2023-01-21 09:11 | Outpatient (AMB) | payer OTHER, SELFPAY ==
--- NOTE | 2023-01-21 09:13 | A.OFFVIS_ITS ---
Intake Intake Visit Reasons: US follow up Intake Note: Follow US on 12/06/22 Pt says that shes feeling horrible and she is having a lot of pain in both LE. She says that she uses the compression stockings but not consistently.She feels like they do not help Foiling Machine Adjuster Required: Yes Foiling Machine Adjuster Name: fabiano duran Information Interpreted: clinical only Allergies No Known Allergies Allergy (Verified 01/21/23 09:18) HPI US follow up HPI Details Very pleasant 57-year-old female presents for follow-up regarding venous insufficiency. She has multiple areas of spider telangiectasias which have been concerning for her. The current time she has some mild swelling and discomfort. Compression stockings have provided minimal relief. She now presents for routine follow-up with venous insufficiency testing. REPLACED BY [facility] Medical History Lump of skin Chronic constipation Fibromyalgia SS-A antibody positive Blood D-dimer assay positive Chronic pain syndrome Multiple allergies Sacroiliitis Spondylosis without myelopathy or radiculopathy, cervical region Myofascial pain syndrome BARRON positive Depression Overweight (BMI 25.0-29.9) Asthma Neck pain Pure hypercholesterolemia Anemia Left lumbar radiculopathy Lumbar degenerative disc disease Primary osteoarthritis of hands, bilateral Surgical History Hx of colonoscopy History of esophagogastroduodenoscopy (EGD) History of total abdominal hysterectomy Family History Father Myocardial infarction Stomach cancer Mother Myocardial infarction Osteoporosis Diabetes Brother HIV (human immunodeficiency virus infection) Sister In good health Social History Housing: Apartment Alcohol intake: never Patient Tobacco Use Status: Never used Tobacco e-Cigarette/Vaping Use: Never Used Second Hand Smoke Exposure: No service: No Current occupational status: retired and disabled Cognitive needs: No Hearing needs: No Vision needs: Yes Review of Systems Const Reports as per HPI ENT Reports no additional complaints Card Denies chest pain, Denies chest pain at rest and Denies chest pain with activity Resp Denies chest congestion and Denies cough GI Reports no additional complaints Musc Details: pain over varicosities, aching of lower extremities, swelling, cramping, heaviness and tiredness, itching Denies abnormal gait Skin/Breast Reports pruritus and Denies wounds Neuro Reports no additional complaints and Denies abnormal gait Psych Denies no additional complaints Physical Exam Const General: cooperative, healthy appearing and comfortable Orientation/consciousness: oriented to person, oriented to place and oriented to time Neck Carotids: no bruits Chest Chest palpation & inspection: normal inspection of the chest and normal palpation of entire chest wall Resp Effort & Inspection: normal respiratory effort and able to speak in complete sentences Cardio Rate: regular rate Heart sounds: S1 normal heart sound present and S2 normal heart sound present Peripheral pulses: Peripheral pulses 2+ throughout GI Inspection: Yes normal to inspection Skin Other: +2 edema, multiple spider telangiectasias General skin exam: dry skin Neuro General: oriented to person, oriented to place and oriented to time Extrem Right lower extremity: full ROM, normal capillary refill and edema Left lower extremity: full ROM, normal capillary refill and edema Psych Mental Status: mental status grossly normal Results Reviewed Results Reviewed: Brief summary of venous insufficiency testing is as follows: right great saphenous vein: negative right small saphenous vein: negative right accessory vein: none present left great saphenous vein: negative left small saphenous vein: negative left accessory vein: none present Please note there is no evidence of any venous aneurysms or significant tortuosity Assessment & Plan Assessment & Plan (1) Varicose veins of right lower extremity with inflammation: Code(s): I83.11 - Varicose veins of right lower extremity with inflammation Plan: In short venous insufficiency testing has been essentially negative. We did discuss routine conservative measures including compression elevation and exercise. The patient will follow up with us on as-needed basis. Thank you for allowing us to assist in her care. Coding Level of Care Code Est Pt Level 4 (33573) Diagnoses Varicose veins of right lower extremity with inflammation I83.11
== END 2023-01-21 09:30 | disposition home or self-care (01) ==
PROVIDERS: PCP Internal Medicine; Visit Provider Surgery Vascular Surgery
DX: I83.11 Varicose veins of right lower extremity with inflammation (principal)
CPT/HCPCS: 99213

== ENCOUNTER → 2023-01-21 09:11 | Outpatient (BNVA) | payer OTHER, SELFPAY | PROVIDERS: PCP Internal Medicine; Visit Provider Surgery Vascular Surgery | DX: I83.11 Varicose veins of right lower extremity with inflammation (principal) | CPT/HCPCS: 99212 ==

== ENCOUNTER 2023-01-23 09:30 | Outpatient (REF) | payer OTHER, SELFPAY | END 2023-01-23 09:31 | disposition home or self-care (01) | LOC: HO.MDS 09:30 | PROVIDERS: Visit Provider Internal Medicine Pulmonary Disease | DX: D80.2 Selective deficiency of immunoglobulin A [IgA] (principal) | CPT/HCPCS: 96369 ==

== ENCOUNTER 2023-01-27 09:28 | Outpatient (REF) | payer OTHER, SELFPAY | END 2023-01-27 09:29 | disposition home or self-care (01) | LOC: HO.MDS 09:28 | PROVIDERS: Visit Provider Internal Medicine Pulmonary Disease | DX: D80.2 Selective deficiency of immunoglobulin A [IgA] (principal) | CPT/HCPCS: 96369 ==

== ENCOUNTER 2023-02-03 09:37 | Outpatient (REF) | payer OTHER, SELFPAY | END 2023-02-03 09:38 | disposition home or self-care (01) | LOC: HO.MDS 09:37 | PROVIDERS: Visit Provider Internal Medicine Pulmonary Disease | DX: D80.2 Selective deficiency of immunoglobulin A [IgA] (principal) | CPT/HCPCS: 96369 ==

== ENCOUNTER 2023-02-06 09:37 | Outpatient (AMB) | payer OTHER, SELFPAY ==
[2023-02-06 09:40] VITALS: BP 106/68; PULSE 54; TEMP 36.1; O2SAT 98; BMI 25.0
--- NOTE | 2023-02-06 09:40 | MHC.OFFVIS ---
Intake Vital Signs 02/06/23 09:40 Height 5 ft 5 in Weight 150 lb 5.684 oz BMI 25.0 BP 106/68 Blood Pressure Location Rt brachial Position Sitting Pulse 54 Pulse Source Pulse Oximeter Temp 97.0 F Temp Source Skin Pulse Oximetry (%) 98 Intake Visit Reasons: Shoulder Pain Intake Note: Patient presents today to follow up on shoulder pain. Has not done PT. Report left shoulder pain Last seen- 11/19/22 Plastic Surgery Specialist Required: No Accompanied by: Self / Same As Patient Allergies No Known Allergies Allergy (Verified 02/06/23 09:43) Medication List - Last Reconciled 02/06/23 by Dinesh Camargo MD albuterol sulfate 90 mcg/actuation (Ventolin HFA) 2 puffs inhalation Q6H PRN arm brace (Wrist Brace Medium) use nightly cetirizine 10 mg PO DAILY diclofenac sodium 75 mg PO BID immun glob G(IgG)-pro-IgA 0-50 4 gram/20 mL (20 %) (Hizentra) mL subcut ipratropium-albuterol 0.5 mg-3 mg(2.5 mg base)/3 mL 3 mL inhalation QID ketotifen fumarate 0.025%(0.035%) drps ophthalmic (eye) meclizine 25 mg PO TID PRN 30 days HPI HPI Comments History of Present Illness Details The patient returns with complaints of left shoulder pain. She had a corticosteroid injection for rotator cuff tendinitis back in March. That worked apparently well until the summer when she developed more symptoms. I had seen her in October and I sent her for physical therapy. She missed an appointment so she has not had formal PT. She did do some exercises at home that I had demonstrated for her. Eventually the symptoms all but improved only to return again about 2 weeks ago. She does remain on diclofenac 75 b.i.d. but admits sometimes she misses a dose. Her pain is over the anterior aspect of the shoulder. It is worse at night with lying on the shoulder and also with ranging the arm up above the head. She had some facial flushing with the last injection. [facility] Medical History Lump of skin Chronic constipation Fibromyalgia SS-A antibody positive Blood D-dimer assay positive Chronic pain syndrome Multiple allergies Sacroiliitis Spondylosis without myelopathy or radiculopathy, cervical region Myofascial pain syndrome BARRON positive Depression Overweight (BMI 25.0-29.9) Asthma Neck pain Pure hypercholesterolemia Anemia Left lumbar radiculopathy Lumbar degenerative disc disease Primary osteoarthritis of hands, bilateral Surgical History Hx of colonoscopy History of esophagogastroduodenoscopy (EGD) History of total abdominal hysterectomy Family History Father Myocardial infarction Stomach cancer Mother Myocardial infarction Osteoporosis Diabetes Brother HIV (human immunodeficiency virus infection) Sister In good health Social History Housing: Apartment Alcohol intake: never Patient Tobacco Use Status: Never used Tobacco e-Cigarette/Vaping Use: Never Used Second Hand Smoke Exposure: No service: No Current occupational status: retired and disabled Cognitive needs: No Hearing needs: No Vision needs: Yes Review of Systems Const Details: Negative for appetite change, weight change, fever, chills, malaise and fatigue Eyes Details: Negative for vision change, dry eyes,headaches and dizziness Card Details: Negative chest pain, edema and syncope Resp Details: Negative for SOB, cough and wheezing GI Details: Negative indigestion/heartburn, nausea, abdominal pain, bowel changes, diarrhea, constipation and bloody stool. Neuro Details: Negative for epilepsy, palsy, stroke, changes in speech, tingling and weakness Endo Details: Negative for polyuria and polydypsia Toño/Lymph Details: Negative for excessive bruising or bleeding. Physical Exam Vital Signs: Last Vital Signs Temp 97.0 F 02/06/23 09:40 Pulse 54 02/06/23 09:40 BP 106/68 02/06/23 09:40 Pulse Ox 98 02/06/23 09:40 BMI result Body Mass Index 25.0 APPEARANCE: Patient in no acute distress Cervical Spine:.? Full range of motion without pain; no tenderness. Thoracic Spine:.? No scoliosis.? Some left paraspinal tenderness on palpation. Lumbar Spine:.? Alignment normal.? Mild pain with extremes of motion.? No tenderness. Chest Wall:.? No tenderness, swelling, increased warmth or erythema. Shoulders:? Right:?? Full range of motion with no pain. There is no tenderness, adenopathy, weakness, swelling, increased warmth or erythema.? Left: Mild pain with abduction at 120 degrees or with more than 20 degrees of internal rotation.? There is mild anterior, AC joint and subacromial tenderness without swelling or adenopathy.? No abductor weakness. EXTREMITIES: No edema, no calf tenderness, normal peripheral pulses. ? Office Procedures Joint Injection/Drain Joint Injection/Drain Primary Site: left shoulder Injected: 40 mg of, with 1 mL of and 1% plain lidocaine Coding Details: With the patient's consent the left shoulder was prepped with ChloraPrep and alcohol. Under a topical ethyl chloride spray the left subacromial space was injected with 40 mg of triamcinolone and 1 cc of 1% lidocaine. The patient tolerated the procedure without any acute adverse effects. 92820 - Large joint Procedure code (CPT) selection complete Results Reviewed Results Reviewed: [place] [address] XRay Report Signed Patient: Candida Massey MR#: [id number] : 1965 Acct:[id number] Age/Sex: 56 / F ADM Date: 04/08/[address]: Dinesh Camargo MD Ordering Physician: Dinesh Camargo MD Date of Service: 04/08/22 Procedure(s): XR shoulder LT min 2V Accession Number(s): [id number] cc: Dinesh Camargo MD~ EXAMINATION: XR SHOULDER, LEFT CLINICAL INFORMATION: Pain in left shoulder COMPARISON: None TECHNIQUE: AP external rotation, Grashey, scapular Y, and axillary views of the left shoulder. FINDINGS: No fracture. No dislocation. Visualized left lung and ribs are normal. XR/XR shoulder LT min 2V IMPRESSION: No acute osseous abnormality of the left shoulder. Dictated By: Miki Ware MD Signed By: <Electronically signed by Miki Ware MD in OV> 04/09/22 1049 Assessment & Plan Assessment & Plan (1) Tendonitis of left rotator cuff: Code(s): M75.82 - Other shoulder lesions, left shoulder Plan She has had some return of symptoms of pain in the shoulder and painful range of motion consistent with a rotator cuff tendinitis. The x-rays normal. There was no recent or old injury. We talked about trying physical therapy again, corticosteroid injection or working up with MRI for consideration of a surgical approach. She does not want to pursue surgery for now. She wants to try another local injection. I told her that if she experiences facial flushing with cortisone injection before she is likely to experience that sensation again but it is a self-limited side effect. With the patient's consent the left shoulder was prepped with ChloraPrep and alcohol. Under a topical ethyl chloride spray the left subacromial space was injected with 40 mg of triamcinolone and 1 cc of 1% lidocaine. The patient tolerated the procedure without any acute adverse effects. She will rest the area for a few days and then begin some gentle [id number] exercises. I told her to give it 5 or 6 weeks and resume her home exercises this weekend. If symptoms do not improve at that point she could call us for referral Orthopedics. Orders: Orders AMB Joint Injection/Aspiration Today M75.82 - Other shoulder lesions, left shoulder Coding Level of Care Code Est Pt Level 3 (77592) Diagnoses Tendonitis of left rotator cuff M75.82 CPT Codes Coding - 19769 Large joint: 38922 - Large joint ([id number])
== END 2023-02-06 10:06 | disposition home or self-care (01) ==
PROVIDERS: PCP Internal Medicine; Visit Provider Internal Medicine Rheumatology
DX: M75.82 Other shoulder lesions, left shoulder (principal)
CPT/HCPCS: 20610; 99214

== ENCOUNTER → 2023-02-06 09:37 | Outpatient (BNVA) | payer OTHER, SELFPAY | PROVIDERS: PCP Internal Medicine; Visit Provider Internal Medicine Rheumatology | DX: M75.82 Other shoulder lesions, left shoulder (principal) | CPT/HCPCS: 20610; 99212 ==

== ENCOUNTER 2023-02-10 09:24 | Outpatient (REF) | payer OTHER, SELFPAY | END 2023-02-10 09:25 | disposition home or self-care (01) | LOC: HO.MDS 09:24 | PROVIDERS: Visit Provider Internal Medicine Pulmonary Disease | DX: D80.2 Selective deficiency of immunoglobulin A [IgA] (principal) | CPT/HCPCS: 96360 ==

== ENCOUNTER 2023-02-17 09:34 | Outpatient (REF) | payer OTHER, SELFPAY | END 2023-02-17 09:35 | disposition home or self-care (01) | LOC: HO.MDS 09:34 | PROVIDERS: Visit Provider Internal Medicine Pulmonary Disease | DX: D80.2 Selective deficiency of immunoglobulin A [IgA] (principal) | CPT/HCPCS: 96369 ==

== ENCOUNTER 2023-02-24 09:33 | Outpatient (REF) | payer OTHER, SELFPAY | END 2023-02-24 09:34 | disposition home or self-care (01) | LOC: HO.MDS 09:33 | PROVIDERS: PCP Internal Medicine; Visit Provider Internal Medicine Pulmonary Disease | DX: D80.2 Selective deficiency of immunoglobulin A [IgA] (principal) | CPT/HCPCS: 96369 ==

== ENCOUNTER 2023-03-03 09:33 | Outpatient (REF) | payer OTHER, SELFPAY | END 2023-03-03 09:34 | disposition home or self-care (01) | LOC: HO.MDS 09:33 | PROVIDERS: PCP Internal Medicine; Visit Provider Internal Medicine Pulmonary Disease | DX: D80.2 Selective deficiency of immunoglobulin A [IgA] (principal) | CPT/HCPCS: 96369 ==

== ENCOUNTER 2023-03-13 11:29 | Outpatient (REF) | payer OTHER, SELFPAY | END 2023-03-13 11:30 | disposition home or self-care (01) | LOC: HO.MDS 11:29 | PROVIDERS: PCP Internal Medicine; Visit Provider Internal Medicine Pulmonary Disease | DX: D80.2 Selective deficiency of immunoglobulin A [IgA] (principal) | CPT/HCPCS: 96369 ==

== ENCOUNTER 2023-03-26 12:35 | Outpatient (REF) | payer OTHER, SELFPAY | END 2023-03-26 12:36 | disposition home or self-care (01) | LOC: HO.MDS 12:35 | PROVIDERS: Visit Provider Internal Medicine Pulmonary Disease | DX: Z13.89 Encounter for screening for other disorder (principal) | CPT/HCPCS: J1559 ==

== ENCOUNTER 2023-03-27 09:18 | Outpatient (REF) | payer OTHER, SELFPAY | END 2023-03-27 09:19 | disposition home or self-care (01) | LOC: HO.MDS 09:18 | PROVIDERS: Visit Provider Internal Medicine Pulmonary Disease | DX: D80.2 Selective deficiency of immunoglobulin A [IgA] (principal) | CPT/HCPCS: 96369; J1559 ==

== ENCOUNTER 2023-03-31 09:30 | Outpatient (REF) | payer OTHER, SELFPAY | END 2023-03-31 09:31 | disposition home or self-care (01) | LOC: HO.MDS 09:30 | PROVIDERS: Visit Provider Internal Medicine Pulmonary Disease | DX: D80.2 Selective deficiency of immunoglobulin A [IgA] (principal) | CPT/HCPCS: 96369 ==

== ENCOUNTER 2023-04-07 09:16 | Outpatient (REF) | payer OTHER, SELFPAY | END 2023-04-07 09:17 | disposition home or self-care (01) | LOC: HO.MDS 09:16 | PROVIDERS: Visit Provider Internal Medicine Pulmonary Disease | DX: D80.2 Selective deficiency of immunoglobulin A [IgA] (principal) | CPT/HCPCS: 96372 ==

== ENCOUNTER 2023-04-14 09:38 | Outpatient (REF) | payer OTHER, SELFPAY | END 2023-04-14 09:39 | disposition home or self-care (01) | LOC: HO.MDS 09:38 | PROVIDERS: Visit Provider Internal Medicine Pulmonary Disease | DX: D80.2 Selective deficiency of immunoglobulin A [IgA] (principal) | CPT/HCPCS: 96369 ==

== ENCOUNTER 2023-04-21 09:34 | Outpatient (REF) | payer OTHER, SELFPAY | END 2023-04-21 09:35 | disposition home or self-care (01) | LOC: HO.MDS 09:34 | PROVIDERS: Visit Provider Internal Medicine Pulmonary Disease | DX: D80.2 Selective deficiency of immunoglobulin A [IgA] (principal) | CPT/HCPCS: 96369; J1559 ==

== ENCOUNTER 2023-04-21 10:55 | Outpatient (REF) | payer OTHER, SELFPAY ==
[2023-04-21 11:11] LABS: MANUAL DIFF FLAG NO
[2023-04-21 11:31] LABS: Appearance Urine Clear; Color Urine Yellow; Glucose Urine UA Negative (Negative); Leukocyte Esterase Urine Negative (Negative); Nitrite Urine Negative (Negative); PH 7.5 (5.0-9.0); Specific Gravity - Urine <= 1.005 (1.005-1.025); Urine Blood Negative (Negative); Urine Ketones Negative (Negative); Urine Protein Negative (Neg-Trace)
[2023-04-21 11:36] LABS: Basophils Absolute Auto 0.1 X10*3/uL (0.0-0.2); Basophils Percent Auto 0.8 % (0-2); Eosinophils Absolute Auto 0.3 X10*3/uL (0.0-0.4); Eosinophils Percent Auto 4.2 % (0-4); Hemoglobin 12.1 g/dl (12.0-16.0); Imm Gran Abs Auto 0.02 X10*3/uL (0.00-0.03); Imm Gran Pct Auto 0.3 % (0.0-0.4); Lymphocytes Absolute Auto 1.6 X10*3/uL (1.2-4.9); Lymphocytes Percent Auto 27.2 % (20-40); Mean Corpuscular HGB Conc 32.7 g/dl (31.0-35.0); Mean Corpuscular Hemoglobin 27.6 pg (27.0-33.0); Mean Corpuscular Volume 84.5 fL (80.0-98.0); Mean Platelet Volume 10.3 fL (9.4-12.3); Monocytes Absolute Auto 0.4 X10*3/uL (0.1-1.2); Monocytes Percent Auto 6.6 % (2-11); Neutrophils Absolute Auto 3.6 x10*3/uL (2.0-8.3); Neutrophils Percent Auto 60.9 % (45-73); Platelet Count 264 X10*3/uL (160-400); Red Blood Count 4.38 X10*6/uL (4.20-5.50); Red Cell Distribution Width 13.5 % (11.0-16.0)
[2023-04-21 12:36] LABS: Alanine Aminotransferase 20 U/L (0-31); Albumin Level 4.3 g/dL (3.5-5.0); Alkaline Phosphatase 75 U/L (39-117); Anion Gap 11 (12-20); Aspartate Amino Transferase 18 U/L (5-31); Bilirubin Total 0.4 mg/dL (0.0-1.0); Blood Urea Nitrogen 12 mg/dL (9-16); Calcium 9.5 mg/dL (8.4-10.2); Carbon Dioxide 26 mmol/L (22-29); Chloride 108 mmol/L (96-108); Cholesterol 216 mg/dL (<200); Estimated Glomerular Filt Rate > 60; Glucose Fasting 98 mg/dL (60-99); HDL Cholesterol 62 mg/dL (>40); LDL Cholesterol Calculated 127 mg/dL (<100); Potassium 3.6 mmol/L (3.3-5.1); Sodium 141 mmol/L (135-145); Triglycerides 139 mg/dL (<150)
[2023-04-21 13:26] LABS: TSH reflex Free T4 2.94 uIU/mL (0.32-4.0); Vitamin D 25-OH Total 43.8 ng/mL (>30)
== END 2023-04-21 10:56 | disposition home or self-care (01) ==
LOC: HO.LAB 10:55
PROVIDERS: PCP Internal Medicine; Visit Provider Internal Medicine
DX: E78.00 Pure hypercholesterolemia, unspecified (principal); E55.9 Vitamin D deficiency, unspecified; R30.0 Dysuria; I10 Essential (primary) hypertension
CPT/HCPCS: 36415; 80053; 80061; 81003; 82306; 84443; 85025

== ENCOUNTER 2023-04-28 09:36 | Outpatient (REF) | payer OTHER, SELFPAY | END 2023-04-28 09:37 | disposition home or self-care (01) | LOC: HO.MDS 09:36 | PROVIDERS: Visit Provider Internal Medicine Pulmonary Disease | DX: D80.2 Selective deficiency of immunoglobulin A [IgA] (principal) | CPT/HCPCS: 96369 ==

== ENCOUNTER 2023-05-05 09:34 | Outpatient (REF) | payer OTHER, SELFPAY | END 2023-05-05 09:35 | disposition home or self-care (01) | LOC: HO.MDS 09:34 | PROVIDERS: Visit Provider Internal Medicine Pulmonary Disease | DX: D80.2 Selective deficiency of immunoglobulin A [IgA] (principal) | CPT/HCPCS: 96369 ==

== ENCOUNTER 2023-05-19 09:30 | Outpatient (REF) | payer OTHER, SELFPAY | END 2023-05-19 09:31 | disposition home or self-care (01) | LOC: HO.MDS 09:30 | PROVIDERS: Visit Provider Internal Medicine Pulmonary Disease | DX: D80.2 Selective deficiency of immunoglobulin A [IgA] (principal) | CPT/HCPCS: 96365; 96369; J1559 ==

== ENCOUNTER 2023-05-20 10:29 | Outpatient (REF) | payer OTHER, SELFPAY ==
--- NOTE | ~2023-05-20 | US_ITS ---
EXAMINATION: US ABDOMEN LIMITED CLINICAL INFORMATION: Localized swelling, mass and lump, trunk. COMPARISON: None available. TECHNIQUE: Real-time imaging of the abdomen left of midline. FINDINGS: Targeted ultrasound images were obtained by the respiratory therapy technician of the area of concern as indicated by the patient in the midline abdomen and demonstrated no discrete hernia, mass or fluid collection. Limited visualization due to bowel gas. Radiologist was not in attendance. Images were later provided for interpretation. US/US abdomen limited IMPRESSION: No discrete hernia, mass or fluid collection identified in the area of concern as indicated by the patient in the midline abdomen. CT scan could be considered for further evaluation.
== END 2023-05-20 10:30 | disposition home or self-care (01) ==
LOC: HO.US 10:29
PROVIDERS: PCP Internal Medicine; Visit Provider Internal Medicine
DX: R22.2 Localized swelling, mass and lump, trunk (principal)
CPT/HCPCS: 76705

== ENCOUNTER 2023-05-26 09:35 | Outpatient (REF) | payer OTHER, SELFPAY ==
[2023-05-26 09:39] VITALS: BP 109/75; PULSE 60; RESP 18; TEMP 36.3; O2SAT 98; BMI 27.8
== END 2023-05-26 09:36 | disposition home or self-care (01) ==
LOC: HO.MDS 09:35
PROVIDERS: Visit Provider Internal Medicine Pulmonary Disease
DX: D80.2 Selective deficiency of immunoglobulin A [IgA] (principal)
CPT/HCPCS: 96369

== ENCOUNTER 2023-06-02 09:33 | Outpatient (REF) | payer OTHER, SELFPAY ==
[2023-06-02 09:37] VITALS: BP 103/64; PULSE 57; RESP 18; TEMP 36.7; O2SAT 100
--- NOTE | 2023-06-02 09:55 | HO.INF ---
3- sq needles inserted to lower abdomen without difficulties, tegaderms over sites.
--- NOTE | 2023-06-02 10:48 | HO.INF ---
3 SQ NEEDLES PLACED TO LOWER ABDOMEN- LEFT SIDE, MIDDLE AND RIGHT SIDE- NO DIFFICULTIES NOTES. TEGADERMS OVER SITES. ONCE ALL 3 SQ NEEDLES REMOVED- BANDAIDA PLACED OVER SITES
== END 2023-06-02 09:34 | disposition home or self-care (01) ==
LOC: HO.MDS 09:33
PROVIDERS: Visit Provider Internal Medicine Pulmonary Disease
DX: D80.2 Selective deficiency of immunoglobulin A [IgA] (principal)
CPT/HCPCS: 96369

== ENCOUNTER 2023-06-03 12:45 | Outpatient (AMB) | payer OTHER, SELFPAY ==
[2023-06-03 12:47] VITALS: BP 110/78; PULSE 51; O2SAT 98; BMI 27.7
--- NOTE | 2023-06-03 12:47 | A.OFFPC_ITS ---
Vital Signs 06/03/23 12:47 Height 5 ft 1.75 in Weight 150 lb BMI 27.7 BP 110/78 Blood Pressure Location Lt brachial Position Sitting Pulse 51 Pulse Source Pulse Oximeter Pulse Oximetry (%) 98 Oxygen Delivery Method Room Air Intake Visit Reasons: F/U Film Spooler Required: No Accompanied by: Self / Same As Patient Allergies No Known Allergies Allergy (Verified 06/11/23 16:04) Medication List - Last Reconciled 06/11/23 by Charlie Brock MD albuterol sulfate 90 mcg/actuation (Ventolin HFA) 2 puffs inhalation Q6H PRN arm brace (Wrist Brace Medium) use nightly cetirizine 10 mg PO DAILY diclofenac sodium 75 mg PO BID fluticasone furoate-vilanterol 200-25 mcg/dose (Breo Ellipta) 1 ea inhalation DAILY immun glob G(IgG)-pro-IgA 0-50 4 gram/20 mL (20 %) (Hizentra) 7,000 mg (35 mL) subcut QWEEK ipratropium-albuterol 0.5 mg-3 mg(2.5 mg base)/3 mL 3 mL inhalation QID ketotifen fumarate 0.025%(0.035%) drps ophthalmic (eye) meclizine 25 mg PO TID PRN 30 days umeclidinium 62.5 mcg/actuation (Incruse Ellipta) 1 inh inhalation DAILY Tobacco use date assessed: 06/03/23 Dental Screening Dental Screen Date: 06/03/23 Did you have a dental visit in the last 12 months?: No Did you have a dental problem in the last 6 months where you did not have access to dental care?: No Was dental information given to patient?: No HPI F/U HPI Details Patient comes in today for her follow up visit States that she feels okay She denies any headaches or dizziness Denies any chest pains, no SOB - states that her asthma has been well-controlled on Hizentra injections No nausea/vomiting, no abdominal pain No change in bowel habits noted Had her follow up labs done a few weeks ago - to discuss her results She is also requesting referral to ophthalmology for eye exam - states that her vision has been slowly getting worse lately [facility] Medical History Lump of skin Chronic constipation Fibromyalgia SS-A antibody positive Blood D-dimer assay positive Chronic pain syndrome Multiple allergies Sacroiliitis Spondylosis without myelopathy or radiculopathy, cervical region Myofascial pain syndrome BARRON positive Depression Overweight (BMI 25.0-29.9) Asthma Neck pain Pure hypercholesterolemia Anemia Left lumbar radiculopathy Lumbar degenerative disc disease Primary osteoarthritis of hands, bilateral Surgical History Hx of colonoscopy History of esophagogastroduodenoscopy (EGD) History of total abdominal hysterectomy Family History Father Myocardial infarction Stomach cancer Mother Myocardial infarction Osteoporosis Diabetes Brother HIV (human immunodeficiency virus infection) Sister In good health Social History Housing: Apartment Alcohol intake: never Patient Tobacco Use Status: Never used Tobacco e-Cigarette/Vaping Use: Never Used Second Hand Smoke Exposure: No service: No Current occupational status: retired and disabled Cognitive needs: No Hearing needs: No Vision needs: Yes Questionnaire PHQ-9 Over the last 2 weeks, how often have you been bothered by any of the following problems? 1. Little interest or pleasure in doing things: not at all 2. Feeling down, depressed, or hopeless: not at all 3. Trouble falling or staying asleep, or sleeping too much: not at all 4. Feeling tired or having little energy: not at all 5. Poor appetite or overeating: not at all 6. Feeling bad about yourself - or that you are a failure or have let yourself or your family down: not at all 7. Trouble concentrating on things, such as reading the newspaper or watching television: not at all 8. Moving or speaking so slowly that other people could have noticed. Or the opposite - being so fidgety or restless that you have been moving around a lot more than usual: not at all 9. Thoughts that you would be better off or of hurting yourself in some way: not at all Total score: 0 Depression Screening Interpretation: Negative (is seeing therapist/psychiatrist) Depression Screening Done: Yes 80793 - PHQ-9 Billing: Yes Source: Developed by Drs. Florian Cr, Keyla Taveras, Bautista Dominique and colleagues, with an educational luz maria from [employer]. Thrive Questionnaire Date Thrive assessed: 06/03/23 I am a: Patient What is your living situation today?: I have a steady place to live Within the past 12 months, did the food you bought not last and you didn't have the money to get more?: Never true Within the past 12 months, did you worry whether your food would run out before you got money to buy more?: Never true Do you have trouble paying for medicines?: No Do you have trouble getting transportation to medical appointments?: No Do you have trouble paying your heating and electricity bill?: No Do you have trouble taking care of your child, family member or friend?: No Do you have trouble with day-to-day activities such as bathing, preparing meals, shopping, managing finances, etc.?: No Are you currently unemployed and looking for a job?: No Are you interested in more education?: No Please select the resources that you would like help with: None Currently or been in a relationship where the following occur: no concerns reported THRIVE Score: 0 AUDIT C Alcohol Use Questionnaire (AUDIT-C) 1. How often do you have a drink containing alcohol?: Monthly or less 2. How many drinks containing alcohol do you have on a typical day when you are drinking?: 1 or 2 3. How often do you have six or more drinks on one occasion?: Never Total Score: 1 Score Reviewed/Action Taken: Yes OPHELIA-7 AMB Questionnaire OPHELIA-7 Date OPHELIA - 7 assessed: 06/03/23 Feeling nervous, anxious, or on edge: 0 = Not at all Not being able to stop or control worryin = Not at all Worrying too much about different things: 0 = Not at all Trouble relaxin = Not at all Being so restless that it is hard to sit still: 0 = Not at all Becoming easily annoyed or irritable: 0 = Not at all Feeling afraid as if something awful might happen: 0 = Not at all Total OPHELIA-7 score (0-4 normal; 5-9 mild; 10-14 moderate; 15-21 severe): 0 Source: Developed by Drs. Florian Cr, Keyal Taveras, Bautista Dominique and colleagues, with an educational luz maria from [employer]. Review of Systems Const Denies chills, Denies fatigue, Denies fever(s) and Denies headache(s) Eyes Reports blurry vision ENT Denies dysphagia, Denies dizziness, Denies otalgia, Denies headache(s), Reports neck pain, Denies odynophagia and Denies sore throat Card Denies chest pain, Denies palpitations and Denies dyspnea Resp Denies cough and Denies dyspnea GI Denies abdominal pain, Denies constipation, Denies dysphagia, Denies heartburn, Denies diarrhea, Denies nausea, Denies odynophagia and Denies vomiting Denies difficulty voiding, Denies nocturia and Denies dysuria Musc Reports back pain (over the lower back), Reports arthralgias (involving multiple joints, including the hands/fingers) and Reports neck pain Skin/Breast Denies rash Neuro Denies dizziness and Denies headache(s) Endo Denies fatigue and Denies palpitations Physical exam (Primary Care) Vital Signs: Last Vital Signs Pulse 51 06/03/23 12:47 BP 110/78 06/03/23 12:47 Pulse Ox 98 06/03/23 12:47 Oxygen Delivery Method Room Air 06/03/23 12:47 BMI result Body Mass Index 27.7 Tobacco/Smoking Status: Tobacco use Status Tobacco use date assessed 06/03/23 06/03/23 12:58 Patient Tobacco Use Status Never used Tobacco 06/03/23 12:58 e-Cigarette/Vaping Use Never Used 06/03/23 12:58 PHQ-9: PHQ-9 Score PHQ-9: Total score 0 06/03/23 13:18 Depression Screening Interpretation: Negative (is seeing therapist/psychiatrist) Thrive Assessment: Date of Thrive Assessment Date Thrive assessed 06/03/23 06/03/23 12:58 Currently or been in a relationship where the following occur: no concerns reported Const General: no acute distress and alert HENMT Ears: TM's normal bilaterally and EAC's normal Throat: Yes posterior oropharynx normal and Yes tonsils normal (no TP congestion noted) Neck Neck: Yes no lymphadenopathy and Yes supple Thyroid: Thyroid normal Resp Auscultation: clear to auscultation bilaterally, no rales and no wheezes Cardio Rate: regular rate Rhythm: regular rhythm Heart sounds: no murmurs GI Palpation (GI): Soft to palpation and nontender Auscultation: normal bowel sounds General: Yes no CVA tenderness Back/Spine/Pelvis Back: no CVA tenderness Cervical Spine: cervical muscular tenderness and Cervical spine tenderness Thoracic/Lumbar Spine: lumbar spinal tenderness Skin Rashes: no rashes Extrem Other: (+) prominent varicose veins over both lower extremities; no thrombosis noted General: Yes no clubbing, cyanosis or edema Results Reviewed Results Reviewed: Laboratory Tests 04/21/23 04/21/23 11:00 11:09 WBC 6.0 Hgb 12.1 Hct 37.0 Plt Count 264 Sodium 141 Potassium 3.6 Creatinine 0.68 Estimated GFR > 60 Fasting Glucose 98 Calcium 9.5 AST 18 ALT 20 Triglycerides 139 Cholesterol 216 H LDL Cholesterol, Calc 127 H HDL Cholesterol 62 25-OH Vitamin D Total 43.8 TSH 2.94 Ur Specific [place] <= 1.005 Urine Protein Negative Urine Glucose (UA) Negative Urine Blood Negative Urine Nitrite Negative Ur Leukocyte Esterase Negative Assessment and Plan Assessment & Plan (1) Pure hypercholesterolemia: Code(s): E78.00 - Pure hypercholesterolemia, unspecified Plan: Results of her labs done a few weeks ago reviewed and discussed with patient - advised that her cholesterol levels have improved slightly from previous, and her LDL cholesterol level is now at 127 mg/dl Reinforced low cholesterol diet - patient continues to prefer to avoid taking cholesterol-lowering Rx as much as possible Will recheck her labs and fasting lipids in 6 months for follow up (2) Asthma: Code(s): J45.909 - Unspecified asthma, uncomplicated Qualifiers: Asthma complication type: uncomplicated Asthma persistence: persistent Asthma severity: severe Qualified Code(s): J45.50 - Severe persistent asthma, uncomplicated Plan: Her asthma appears better controlled lately on Hizentra infusion Continue Breo Ellipta 200-25 mcg 1 inhalation QD, Incruse Ellipta 62.5 mcg 1 inhalation QD and Albuterol HFA 2 inhalations Q 6 hours PRN Also uses Duoneb via nebulizer 4 times a day as needed and Tobramycin was added to this by pulmonary recently Follow up with pulmonary as scheduled (3) 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] Plan: Has been seeing and following up with allergy & immunology in the past but we have not received any correspondence from them since June 2021 Is currently on IV Ig Tx with Hizentra 7000 mg weekly and appears to be doing well - to continue on Hizentra for now under [place] [facility]4) Multiple allergies: Code(s): Z88.9 - Allergy status to unspecified drugs, medicaments and biological substances Plan: Continue Cetirizine 10 mg QD PRN Follow up with health education director as scheduled (5) Anemia: Code(s): D64.9 - Anemia, unspecified Qualifiers: Anemia type: unspecified type Qualified Code(s): D64.9 - Anemia, unspecified Plan: Corrected - her H/H have remained normal on her recent labs Will continue to monitor her CBC regularly (6) Varicose veins of both lower extremities: Code(s): I83.93 - Asymptomatic varicose veins of bilateral lower extremities Qualifiers: Varicose vein complication: other Qualified Code(s): I83.893 - Varicose veins of bilateral lower extremities with other complications Plan: Follow up with vascular surgery as scheduled (7) Lumbar degenerative disc disease: Code(s): M51.36 - Other intervertebral disc degeneration, lumbar region Plan: X-rays of the lumbar spine done back in October 2019 revealed progressive 1 cm grade 2 anterolisthesis of L5 on S1 in the setting of suspected L5 pars defect Reinforced activity and weight-lifting restrictions to avoid aggravating her lower back symptoms Continue Tramadol 50 mg 2 tablets at a time up to 4 times a day as needed Follow up with pain management as scheduled - states that her low back pain has improved a lot with injection Tx and has not been bothering her lately (8) Spondylosis without myelopathy or radiculopathy, cervical region: Code(s): M47.812 - Spondylosis without myelopathy or radiculopathy, cervical region Plan: She has been receiving injections into her cervical spine and trapezius muscles from pain management; notes that she still has frequent muscles pains but her neck pain has been stable lately Follow up with [facility] [place] as scheduled (9) Primary osteoarthritis of hands, bilateral: Code(s): M19.041 - Primary osteoarthritis, right hand; M19.042 - Primary osteoarthritis, left hand Plan: X-rays of both hands done in the past showed mild OA changes of the DIP joints Tests done in the past only showed (+) anti-Ro Ab but she has no evidence of active inflammatory arthritis that might be associated with her positive Sjogren's antibody EMG and NCV done back in late December 2019 revealed normal findings with no evidence of nerve entrapment or carpal tunnel syndrome; patient also had EMG done at [facility] in September 2018 that came out with normal results She has been seen and evaluated at [facility] [place] last year and they recommended increasing her dose of NSAIDs and to follow up with them only on a PRN basis She is also again encouraged to continue with frequent and regular hand exercises to help manage her hand stiffness and pain She is now following up with [facility] [place] regularly (10) Chronic constipation: Code(s): K59.09 - Other constipation Plan: Patient is encouraged again to increase her oral fluids and dietary fiber She is currently doing well on Senna 8.6 mg 2 tablets QD and Benefiber supplements Follow up with GI as scheduled (11) Blurred vision, bilateral: Code(s): H53.8 - Other visual disturbances Plan: Will refer her to ophthalmology for further evaluation and management (12) Anetoderma: Code(s): L90.8 - Other atrophic disorders of skin Plan: Follow up with dermatology as scheduled (13) Depression: Code(s): F32.9 - Major depressive disorder, single episode, unspecified Qualifiers: Active/Remission status: currently active Depression Type: major depressive disorder Major depression episode severity: unspecified Major depression recurrence: recurrent Qualified Code(s): F33.9 - Major depressive disorder, recurrent, unspecified Plan: Was on Venlafaxine 75 mg QD previously but it appears she came off her med a few months ago Follow up with psychiatry as scheduled Patient also sees/talks to her therapist regularly (14) Overweight (BMI 25.0-29.9): Code(s): E66.3 - Overweight Plan: Reinforced diet/exercise as tolerated/lose weight Plan Follow up in 6 months Orders: Orders Comprehensive [place]. Panel Fast 6 Months E78.00 - Pure hypercholesterolemia, unspecified Complete Blood Count Auto Diff 6 Months D64.9 - Anemia, unspecified Lipid Panel 6 Months E78.00 - Pure hypercholesterolemia, unspecified Referrals Ophthalmology Referral H53.8 - Other visual disturbances Coding Level of Care Code Est Pt Level 4 (65470) Diagnoses Pure hypercholesterolemia E78.00 Severe persistent asthma without complication J45.50 Asthma complication type: uncomplicated Asthma persistence: persistent Asthma severity: severe IgA deficiency D80.2 Multiple allergies Z88.9 Anemia, unspecified type D64.9 Anemia type: unspecified type Varicose veins of bilateral lower extremities with other complications I83.893 Varicose vein complication: other Lumbar degenerative disc disease M51.36 Spondylosis without myelopathy or radiculopathy, cervical region M47.812 Primary osteoarthritis of hands, bilateral M19.041; M19.042 Chronic constipation K59.09 Blurred vision, bilateral H53.8 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 Episode of recurrent major depressive disorder, unspecified depression episode severity F33.9 Active/Remission status: currently active Depression Type: major depressive disorder Major depression episode severity: unspecified Major depression recurrence: recurrent Overweight (BMI 25.0-29.9) E66.3
== END 2023-06-03 13:25 | disposition home or self-care (01) ==
PROVIDERS: PCP Internal Medicine; Visit Provider Internal Medicine
DX: E78.00 Pure hypercholesterolemia, unspecified (principal); J45.50 Severe persistent asthma, uncomplicated; D80.2 Selective deficiency of immunoglobulin A [IgA]; F33.9 Major depressive disorder, recurrent, unspecified; Z88.9 Allergy status to unspecified drugs, medicaments and biological substances; D64.9 Anemia, unspecified; I83.893 Varicose veins of bilateral lower extremities with other complications; M51.36 Other intervertebral disc degeneration, lumbar region; M47.812 Spondylosis without myelopathy or radiculopathy, cervical region; M19.041 Primary osteoarthritis, right hand; M19.042 Primary osteoarthritis, left hand; K59.09 Other constipation
CPT/HCPCS: 99214

== ENCOUNTER 2023-06-06 09:47 | Outpatient (AMB) | payer OTHER, SELFPAY ==
[2023-06-06 09:53] VITALS: BP 128/72; PULSE 54; O2SAT 100; BMI 28.3
--- NOTE | 2023-06-06 09:53 | A.OFFVIS_ITS ---
Intake Vital Signs 06/06/23 09:53 Height 5 ft 1 in Weight 150 lb BMI 28.3 BP 128/72 Blood Pressure Location Rt brachial Pulse 54 Pulse Source Doppler Pulse Oximetry (%) 100 Oxygen Delivery Method Room Air Intake Visit Reasons: Asthma Allergies No Known Allergies Allergy (Verified 06/06/23 09:58) HPI Asthma HPI Details 57-year-old lady, nonsmoker, followed fo r underlying severe persistent allergic asthma, pulmonary nodules, and severe IgA deficiency. Her SS/Ro antibody is positive.? Patient is following up with doctor of naturopathic medicine.?She was tried on Fasenra with no significant response.? She continues on Hizentra with significantly improved control of her underlying recurrent mucopurulent bronchitis.? T she also has been using albuterol MDI/DuoNebs and Breo to control her underlying reactive airway symptoms. [facility] Medical History Lump of skin Chronic constipation Fibromyalgia SS-A antibody positive Blood D-dimer assay positive Chronic pain syndrome Multiple allergies Sacroiliitis Spondylosis without myelopathy or radiculopathy, cervical region Myofascial pain syndrome BARRON positive Depression Overweight (BMI 25.0-29.9) Asthma Neck pain Pure hypercholesterolemia Anemia Left lumbar radiculopathy Lumbar degenerative disc disease Primary osteoarthritis of hands, bilateral Surgical History Hx of colonoscopy History of esophagogastroduodenoscopy (EGD) History of total abdominal hysterectomy Family History Father Myocardial infarction Stomach cancer Mother Myocardial infarction Osteoporosis Diabetes Brother HIV (human immunodeficiency virus infection) Sister In good health Social History Housing: Apartment Alcohol intake: never Patient Tobacco Use Status: Never used Tobacco e-Cigarette/Vaping Use: Never Used Second Hand Smoke Exposure: No service: No Current occupational status: retired and disabled Cognitive needs: No Hearing needs: No Vision needs: Yes Review of Systems Const Denies daytime sleepiness, Denies excessive sweating, Denies fatigue, Denies fever(s), Denies lethargy, Denies malaise, Denies night sweats, Denies snoring and Denies weight loss Eyes Denies blurry vision and Denies itchy eyes ENT Denies nasal congestion, Denies post nasal drip, Denies sinus pain, Denies sinus pressure and Denies other ( Thrush) Card Denies chest pain, Denies pedal edema, Denies dyspnea, Denies orthopnea and Denies paroxysmal nocturnal dyspnea Resp Denies cough, Denies hemoptysis, Denies excessive phlegm production, Denies dyspnea, Denies snoring and Denies wheezing GI Denies abdominal pain and Denies heartburn Musc Denies myalgias, Denies arthralgias and Denies joint swelling Skin/Breast Denies rash Neuro Denies memory loss and Denies seizure-like activity Psych Denies abnormal sleep pattern, Denies anxiety and Denies memory loss Endo Denies excessive sweating, Denies fatigue and Denies heat intolerance Toño/Lymph Denies easy bruising Aller/Immun Denies itchy eyes, Denies seasonal rhinorrhea and Denies wheezing Physical Exam Vital Signs: Last Vital Signs Pulse 54 06/06/23 09:53 BP 128/72 06/06/23 09:53 Pulse Ox 100 06/06/23 09:53 Oxygen Delivery Method Room Air 06/06/23 09:53 BMI result Body Mass Index 28.3 Const General: no acute distress and alert Nutritional Appearance: not obese Orientation/consciousness: Other orientation findings ( oriented) HEENT Head: Yes atraumatic Eyes General: appearance normal, both eyes and all related structures Sclerae: sclerae normal EOM: EOMs intact bilaterally Neck Neck: Yes supple Lymphatic: no lymphadenopathy noted Resp Effort & Inspection: normal respiratory effort and no use of accessory muscles Auscultation: clear to auscultation bilaterally Cardio Rate: regular rate Rhythm: regular rhythm Heart sounds: no gallops, no murmurs and no rubs Skin General skin exam: other ( warm) Extrem General: No clubbing, No cyanosis and No edema Assessment & Plan Assessment & Plan (1) IgA deficiency, selective: Code(s): D80.2 - 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 Will continue through 2023 then consider re-evaluation. (2) Asthma: Code(s): J45.909 - Unspecified asthma, uncomplicated Qualifiers: Asthma severity: severe Asthma persistence: persistent Asthma complication type: with acute exacerbation Qualified Code(s): J45.51 - Severe persistent asthma with (acute) exacerbation Plan: Well controlled on Breo, duo nebs, and albuterol MDI. Continue current regimen. Coding Level of Care Code Est Pt Level 4 (48109) Diagnoses IgA deficiency, selective D80.2 Severe persistent asthma with acute exacerbation J45.51 Asthma severity: severe Asthma persistence: persistent Asthma complication type: with acute exacerbation
== END 2023-06-06 10:13 | disposition home or self-care (01) ==
PROVIDERS: PCP Internal Medicine; Visit Provider Internal Medicine Pulmonary Disease
DX: D80.2 Selective deficiency of immunoglobulin A [IgA] (principal); J45.51 Severe persistent asthma with (acute) exacerbation
CPT/HCPCS: 99214

== ENCOUNTER → 2023-06-06 09:47 | Outpatient (BNVA) | payer OTHER, SELFPAY | PROVIDERS: PCP Internal Medicine; Visit Provider Internal Medicine Pulmonary Disease | DX: J45.51 Severe persistent asthma with (acute) exacerbation (principal); D80.2 Selective deficiency of immunoglobulin A [IgA] | CPT/HCPCS: 99212 ==

== ENCOUNTER 2023-06-09 09:39 | Outpatient (REF) | payer OTHER, SELFPAY ==
[2023-06-09 09:45] VITALS: BP 145/62; PULSE 54; RESP 18; TEMP 36.3; O2SAT 99
--- NOTE | 2023-06-09 09:53 | HO.INF ---
3 SQ NEEDLES PLACED TO PATIENTS LEFT, RIGHT AND MID UMBULICIS TEGADERMS OVER EACH SITE. NO COMPLICATIONS NOTED
--- NOTE | 2023-06-09 10:52 | HO.INF ---
at end of treatment- all 3 sq needles removed without difficulties, bandaids applied over sites
== END 2023-06-09 09:40 | disposition home or self-care (01) ==
LOC: HO.MDS 09:39
PROVIDERS: Visit Provider Internal Medicine Pulmonary Disease
DX: D80.2 Selective deficiency of immunoglobulin A [IgA] (principal)
CPT/HCPCS: 96369

== ENCOUNTER 2023-06-16 09:14 | Outpatient (REF) | payer OTHER, SELFPAY ==
[2023-06-16 09:19] VITALS: BP 128/67; PULSE 57; RESP 18; TEMP 36.8; O2SAT 100
--- NOTE | 2023-06-16 09:34 | HO.INF ---
3 SQ NEEDLES PLACED TO PT'S LOWER ABDOMEN- RIGHT SIDE, LEFT SIDE AND MID ABDOMEN. CHRISSIE WELL - TEGADERMS OVER SITES. NO S/SX OF INFECTION, , NO REDNESS, TENDERNESS OR SWELLING.
--- NOTE | 2023-06-16 10:41 | HO.INF ---
1st injection infused over 20 minutes. 2nd injection infused over 18 minutes
== END 2023-06-16 09:15 | disposition home or self-care (01) ==
LOC: HO.MDS 09:14
PROVIDERS: Visit Provider Internal Medicine Pulmonary Disease
DX: D80.2 Selective deficiency of immunoglobulin A [IgA] (principal)
CPT/HCPCS: 96369

== ENCOUNTER 2023-07-08 16:43 | Outpatient (AMB) | payer OTHER, SELFPAY ==
[2023-07-08 16:45] VITALS: BP 140/72; PULSE 77; O2SAT 98; BMI 27.2
--- NOTE | 2023-07-08 16:45 | MHC.PC.OV ---
Vital Signs 07/08/23 16:45 Height 5 ft 1 in Weight 144 lb BMI 27.2 BP 140/72 H Blood Pressure Location Lt brachial Position Sitting Pulse 77 Pulse Source Pulse Oximeter Pulse Oximetry (%) 98 Oxygen Delivery Method Room Air Intake Visit Reasons: pain in both eyebrows Intake Note: Patient states that she ended up with blisters on her forehead about the eyebrow. She is having a lot of pressure in her head. Worried about the apt she is at now has mold and she is not sure if that is what effecting her. Being nauseous and can sleep due to the odor. Allergies No Known Allergies Allergy (Verified 07/08/23 17:12) Medication List - Last Reconciled 07/08/23 by Charlie Brock MD albuterol sulfate 90 mcg/actuation (Ventolin HFA) 2 puffs inhalation Q6H PRN arm brace (Wrist Brace Medium) use nightly cetirizine 10 mg PO DAILY diclofenac sodium 75 mg PO BID fluticasone furoate-vilanterol 200-25 mcg/dose (Breo Ellipta) 1 ea inhalation DAILY immun glob G(IgG)-pro-IgA 0-50 4 gram/20 mL (20 %) (Hizentra) 7,000 mg (35 mL) subcut QWEEK ipratropium-albuterol 0.5 mg-3 mg(2.5 mg base)/3 mL 3 mL inhalation QID ketotifen fumarate 0.025%(0.035%) drps ophthalmic (eye) meclizine 25 mg PO TID PRN 30 days umeclidinium 62.5 mcg/actuation (Incruse Ellipta) 1 inh inhalation DAILY Tobacco use date assessed: 07/08/23 Dental Screening Dental Screen Date: 07/08/23 Did you have a dental visit in the last 12 months?: Yes Did you have a dental problem in the last 6 months where you did not have access to dental care?: No Was dental information given to patient?: Patient has dentist HPI pain in both eyebrows HPI Details Patient comes in today mainly to request for some labs to check her out for possible mold exposure States that she found some mold growing under her kitchen sink at her apartment recently and is still waiting for landlord to do something about this Relates that she had some reaction a few days ago when she broke out with some rash and swelling over her eyebrows and both eyes States that these have since subsided although she still feels some puffiness over her eyebrows Is requesting for some labs as she is concerned that extended exposure to the mold in her apartment is starting to affect her She denies any fever, headaches or dizziness Denies any chest pains, no shortness of breath No nausea vomiting, no abdominal pain No change in bowel habits noted [facility] Medical History Lump of skin Chronic constipation Fibromyalgia SS-A antibody positive Blood D-dimer assay positive Chronic pain syndrome Multiple allergies Sacroiliitis Spondylosis without myelopathy or radiculopathy, cervical region Myofascial pain syndrome BARRON positive Depression Overweight (BMI 25.0-29.9) Asthma Neck pain Pure hypercholesterolemia Anemia Left lumbar radiculopathy Lumbar degenerative disc disease Primary osteoarthritis of hands, bilateral Surgical History Hx of colonoscopy History of esophagogastroduodenoscopy (EGD) History of total abdominal hysterectomy Family History Father Myocardial infarction Stomach cancer Mother Myocardial infarction Osteoporosis Diabetes Brother HIV (human immunodeficiency virus infection) Sister In good health Social History Housing: Apartment Alcohol intake: never Patient Tobacco Use Status: Never used Tobacco e-Cigarette/Vaping Use: Never Used Second Hand Smoke Exposure: No service: No Current occupational status: retired and disabled Cognitive needs: No Hearing needs: No Vision needs: Yes Questionnaire PHQ-9 Over the last 2 weeks, how often have you been bothered by any of the following problems? 1. Little interest or pleasure in doing things: not at all 2. Feeling down, depressed, or hopeless: not at all 3. Trouble falling or staying asleep, or sleeping too much: not at all 4. Feeling tired or having little energy: not at all 5. Poor appetite or overeating: not at all 6. Feeling bad about yourself - or that you are a failure or have let yourself or your family down: not at all 7. Trouble concentrating on things, such as reading the newspaper or watching television: not at all 8. Moving or speaking so slowly that other people could have noticed. Or the opposite - being so fidgety or restless that you have been moving around a lot more than usual: not at all 9. Thoughts that you would be better off or of hurting yourself in some way: not at all Total score: 0 Depression Screening Interpretation: Negative (is seeing therapist/psychiatrist) Depression Screening Done: Yes 05649 - PHQ-9 Billing: Yes Source: Developed by Drs. Florian Cr, Keyla Taveras, Bautista Dominique and colleagues, with an educational luz maria from [employer]. Thrive Questionnaire Date Thrive assessed: 07/08/23 I am a: Patient What is your living situation today?: I have a steady place to live Within the past 12 months, did the food you bought not last and you didn't have the money to get more?: Never true Within the past 12 months, did you worry whether your food would run out before you got money to buy more?: Never true Do you have trouble paying for medicines?: No Do you have trouble getting transportation to medical appointments?: No Do you have trouble paying your heating and electricity bill?: No Do you have trouble taking care of your child, family member or friend?: No Do you have trouble with day-to-day activities such as bathing, preparing meals, shopping, managing finances, etc.?: No Are you currently unemployed and looking for a job?: No Are you interested in more education?: No Currently or been in a relationship where the following occur: no concerns reported THRIVE Score: 0 AUDIT C Alcohol Use Questionnaire (AUDIT-C) 1. How often do you have a drink containing alcohol?: Monthly or less 2. How many drinks containing alcohol do you have on a typical day when you are drinking?: 1 or 2 3. How often do you have six or more drinks on one occasion?: Never Total Score: 1 Score Reviewed/Action Taken: Yes OPHELIA-7 AMB Questionnaire OPHELIA-7 Date OPHELIA - 7 assessed: 07/08/23 Feeling nervous, anxious, or on edge: 0 = Not at all Not being able to stop or control worryin = Not at all Worrying too much about different things: 0 = Not at all Trouble relaxin = Not at all Being so restless that it is hard to sit still: 0 = Not at all Becoming easily annoyed or irritable: 0 = Not at all Feeling afraid as if something awful might happen: 0 = Not at all Total OPHELIA-7 score (0-4 normal; 5-9 mild; 10-14 moderate; 15-21 severe): 0 Source: Developed by Drs. Florian Cr, Keyla Taveras, Bautista Dominique and colleagues, with an educational luz maria from [employer]. Review of Systems Const Denies chills, Denies fatigue, Denies fever(s) and Denies headache(s) ENT Denies dysphagia, Denies dizziness, Denies otalgia, Denies headache(s), Reports neck pain, Denies odynophagia and Denies sore throat Card Denies chest pain, Denies palpitations and Denies dyspnea Resp Denies cough and Denies dyspnea GI Denies abdominal pain, Denies constipation, Denies dysphagia, Denies diarrhea, Denies nausea, Denies odynophagia and Denies vomiting Denies difficulty voiding, Denies nocturia and Denies dysuria Musc Reports back pain (over the lower back), Reports arthralgias (involving multiple joints, including the hands/fingers) and Reports neck pain Skin/Breast Details: recent rash above eyes/over eyebrows have cleared up but she still reports some puffiness/swelling over eyebrows on both sides Neuro Denies dizziness and Denies headache(s) Endo Denies fatigue and Denies palpitations Physical exam (Primary Care) Vital Signs: Last Vital Signs Pulse 77 07/08/23 16:45 BP 140/72 H 07/08/23 16:45 Pulse Ox 98 07/08/23 16:45 Oxygen Delivery Method Room Air 07/08/23 16:45 BMI result Body Mass Index 27.2 Tobacco/Smoking Status: Tobacco use Status Tobacco use date assessed 07/08/23 07/08/23 16:59 Patient Tobacco Use Status Never used Tobacco 07/08/23 16:59 e-Cigarette/Vaping Use Never Used 07/08/23 16:59 PHQ-9: PHQ-9 Score PHQ-9: Total score 0 07/08/23 17:17 Depression Screening Interpretation: Negative (is seeing therapist/psychiatrist) Thrive Assessment: Date of Thrive Assessment Date Thrive assessed 07/08/23 07/08/23 16:59 Currently or been in a relationship where the following occur: no concerns reported Const General: no acute distress and alert HENMT Throat: Yes posterior oropharynx normal and Yes tonsils normal (no TP congestion noted) Neck Neck: Yes no lymphadenopathy and Yes supple Thyroid: Thyroid normal Resp Auscultation: clear to auscultation bilaterally, no rales and no wheezes Cardio Rate: regular rate Rhythm: regular rhythm Heart sounds: no murmurs GI Palpation (GI): Soft to palpation and nontender Auscultation: normal bowel sounds Back/Spine/Pelvis Cervical Spine: cervical muscular tenderness and Cervical spine tenderness Thoracic/Lumbar Spine: lumbar spinal tenderness Skin Rashes: no rashes Extrem Other: (+) prominent varicose veins over both lower extremities; no thrombosis noted General: Yes no clubbing, cyanosis or edema Assessment and Plan Assessment & Plan (1) Suspected exposure to mold: Code(s): Z77.120 - Contact with and (suspected) exposure to mold (toxic) Plan: Patient reports breaking out in some rash and swelling (possible urticaria) over both eyebrows and above both eyes recently - symptoms have since resolved although she still reports feeling some puffiness over both eyebrows She is concerned that these may be due to potential mold exposure as she has noticed some evidence of molds growing in her apartment recently, including over the floor of the cabinet under her kitchen sink, and is still waiting for her landlord to do something about this Per request, will send her for some labs, including a RAST test, JAYLENE for further evaluation She is advised that we will contact her if any pertinent results come out on her labs Plan Follow up as scheduled in November 2023 Orders: Orders Complete Blood Count Auto Diff 07/08/23 Z77.120 - Contact with and (suspected) exposure to mold (toxic) Comprehensive Met. Panel 07/08/23 Z77.120 - Contact with and (suspected) exposure to mold (toxic) C Reactive Protein 07/08/23 Z77.120 - Contact with and (suspected) exposure to mold (toxic) Erythrocyte Sedimentation Rate 07/08/23 Z77.120 - Contact with and (suspected) exposure to mold (toxic) Rast Allergen 07/08/23 Z77.120 - Contact with and (suspected) exposure to mold (toxic) Coding Level of Care Code Est Pt Level 3 (15757) Diagnoses Suspected exposure to mold Z77.120
== END 2023-07-08 17:22 | disposition home or self-care (01) ==
PROVIDERS: PCP Internal Medicine; Visit Provider Internal Medicine
DX: Z77.120 Contact with and (suspected) exposure to mold (toxic) (principal)
CPT/HCPCS: 99213

== ENCOUNTER 2023-07-10 11:06 | Outpatient (REF) | payer OTHER, SELFPAY ==
[2023-07-10 11:19] LABS: MANUAL DIFF FLAG NO
[2023-07-10 11:48] LABS: Basophils Absolute Auto 0.1 X10*3/uL (0.0-0.2); Basophils Percent Auto 1.1 % (0-2); Eosinophils Absolute Auto 0.2 X10*3/uL (0.0-0.4); Eosinophils Percent Auto 3.6 % (0-4); Hematocrit 38.2 % (37.0-47.0); Hemoglobin 12.3 g/dl (12.0-16.0); Imm Gran Abs Auto 0.02 X10*3/uL (0.00-0.03); Imm Gran Pct Auto 0.4 % (0.0-0.4); Lymphocytes Absolute Auto 1.7 X10*3/uL (1.2-4.9); Lymphocytes Percent Auto 31.5 % (20-40); Mean Corpuscular HGB Conc 32.2 g/dl (31.0-35.0); Mean Corpuscular Hemoglobin 27.5 pg (27.0-33.0); Mean Corpuscular Volume 85.3 fL (80.0-98.0); Mean Platelet Volume 10.2 fL (9.4-12.3); Monocytes Absolute Auto 0.5 X10*3/uL (0.1-1.2); Monocytes Percent Auto 8.5 % (2-11); Neutrophils Absolute Auto 2.9 x10*3/uL (2.0-8.3); Neutrophils Percent Auto 54.9 % (45-73); Platelet Count 275 X10*3/uL (160-400); Red Blood Count 4.48 X10*6/uL (4.20-5.50); Red Cell Distribution Width 13.2 % (11.0-16.0); White Blood Count 5.3 X10*3/uL (4.8-10.8)
[2023-07-10 12:32] LABS: Alanine Aminotransferase 41 U/L (0-31); Albumin Level 4.4 g/dL (3.5-5.0); Alkaline Phosphatase 77 U/L (39-117); Anion Gap 9 (12-20); Aspartate Amino Transferase 25 U/L (5-31); Bilirubin Total 0.5 mg/dL (0.0-1.0); Blood Urea Nitrogen 11 mg/dL (9-16); C Reactive Protein 0.11 mg/dL (< or = 0.50); Calcium 9.5 mg/dL (8.4-10.2); Carbon Dioxide 27 mmol/L (22-29); Chloride 109 mmol/L (96-108); Estimated Glomerular Filt Rate > 60; Glucose Random 70 mg/dL (60-115); Potassium 3.5 mmol/L (3.3-5.1); Sodium 141 mmol/L (135-145); Total Protein 7.8 g/dL (6.5-8.0)
[2023-07-10 12:34] LABS: Erythrocyte Sedimentation Rate 13 MM/HR (0-20)
== END 2023-07-10 11:07 | disposition home or self-care (01) ==
LOC: HO.LAB 11:06
PROVIDERS: PCP Internal Medicine; Visit Provider Internal Medicine
DX: Z77.120 Contact with and (suspected) exposure to mold (toxic) (principal)
CPT/HCPCS: 36415; 80053; 85025; 85652; 86003; 86140

== ENCOUNTER 2023-07-21 09:32 | Outpatient (REF) | payer OTHER, SELFPAY ==
[2023-07-21 09:54] LABS: MANUAL DIFF FLAG NO
[2023-07-21 10:46] LABS: Basophils Absolute Auto 0.1 X10*3/uL (0.0-0.2); Basophils Percent Auto 1.3 % (0-2); Eosinophils Absolute Auto 0.2 X10*3/uL (0.0-0.4); Eosinophils Percent Auto 4.2 % (0-4); Hematocrit 34.8 % (37.0-47.0); Hemoglobin 11.2 g/dl (12.0-16.0); Imm Gran Abs Auto 0.01 X10*3/uL (0.00-0.03); Imm Gran Pct Auto 0.3 % (0.0-0.4); Lymphocytes Absolute Auto 1.3 X10*3/uL (1.2-4.9); Mean Corpuscular HGB Conc 32.2 g/dl (31.0-35.0); Mean Corpuscular Hemoglobin 27.1 pg (27.0-33.0); Mean Corpuscular Volume 84.3 fL (80.0-98.0); Monocytes Absolute Auto 0.4 X10*3/uL (0.1-1.2); Monocytes Percent Auto 9.1 % (2-11); Neutrophils Percent Auto 52.1 % (45-73); Platelet Count 262 X10*3/uL (160-400); Red Blood Count 4.13 X10*6/uL (4.20-5.50); White Blood Count 3.9 X10*3/uL (4.8-10.8)
[2023-07-21 11:15] LABS: Anion Gap 13 (12-20)
[2023-07-21 11:20] LABS: Alanine Aminotransferase 34 U/L (0-31); Albumin Level 4.2 g/dL (3.5-5.0); Alkaline Phosphatase 69 U/L (39-117); Aspartate Amino Transferase 24 U/L (5-31); Bilirubin Total 0.6 mg/dL (0.0-1.0); Blood Urea Nitrogen 10 mg/dL (9-16); Calcium 9.4 mg/dL (8.4-10.2); Carbon Dioxide 26 mmol/L (22-29); Chloride 107 mmol/L (96-108); Cholesterol 208 mg/dL (<200); Estimated Glomerular Filt Rate > 60; Glucose Fasting 71 mg/dL (60-99); Potassium 3.6 mmol/L (3.3-5.1); Sodium 142 mmol/L (135-145); Total Protein 7.6 g/dL (6.5-8.0); Triglycerides 60 mg/dL (<150)
[2023-07-21 15:18] LABS: HDL Cholesterol 63 mg/dL (>40); LDL Cholesterol Calculated 133 mg/dL (<100)
== END 2023-07-21 09:33 | disposition home or self-care (01) ==
LOC: HO.LAB 09:32
PROVIDERS: PCP Internal Medicine; Visit Provider Internal Medicine
DX: E78.00 Pure hypercholesterolemia, unspecified (principal); D64.9 Anemia, unspecified
CPT/HCPCS: 36415; 80053; 80061; 85025

== ENCOUNTER 2023-10-13 10:58 | Outpatient (AMB) | payer OTHER, SELFPAY ==
[2023-10-13 11:06] VITALS: BP 142/82; PULSE 57; O2SAT 100; BMI 28.7
--- NOTE | 2023-10-13 11:06 | A.OFFVIS_ITS ---
Vital Signs 10/13/23 11:06 Height 5 ft 1 in Weight 152 lb BMI 28.7 BP 142/82 H Blood Pressure Location Lt brachial Position Sitting Pulse 57 Pulse Source Doppler Pulse Oximetry (%) 100 Oxygen Delivery Method Room Air Intake Visit Reasons: chest congestion, cough Program Project Manager Required: Yes Program Project Manager Name: Chelsey Chou C.L.M Allergies No Known Allergies Allergy (Verified 10/13/23 11:09) HPI HPI chest congestion, cough: Details: 57-year-old lady, nonsmoker, followed for underlying severe persistent allergic asthma, pulmonary nodules, and severe IgA deficiency. Her SS/Ro antibody is positive.? Patient is following up with farm management adviser.?She was tried on Fasenra with no significant response.? She continues on Hizentra with baseline significantly improved control of her underlying recurrent mucopurulent bronchitis.? After the last office visit patient had missed 1 dose of Hizentra secondary to issues with delivery and approximately 1 week after she started having worsening bronchitic symptoms. She did take 2 days of Levaquin that she has had remaining with some improvement, but not complete resolution of her symptoms. She continues on Breo, duo nebs, and albuterol MDI further reactive airway disease component. [facility] Medical History Lump of skin Chronic constipation Fibromyalgia SS-A antibody positive Blood D-dimer assay positive Chronic pain syndrome Multiple allergies Sacroiliitis Spondylosis without myelopathy or radiculopathy, cervical region Myofascial pain syndrome BARRON positive Depression Overweight (BMI 25.0-29.9) Asthma Neck pain Pure hypercholesterolemia Anemia Left lumbar radiculopathy Lumbar degenerative disc disease Primary osteoarthritis of hands, bilateral Surgical History Hx of colonoscopy History of esophagogastroduodenoscopy (EGD) History of total abdominal hysterectomy Family History Father Myocardial infarction Stomach cancer Mother Myocardial infarction Osteoporosis Diabetes Brother HIV (human immunodeficiency virus infection) Sister In good health Social History Housing: Apartment Alcohol intake: never Patient Tobacco Use Status: Never used Tobacco e-Cigarette/Vaping Use: Never Used Second Hand Smoke Exposure: No service: No Current occupational status: retired and disabled Cognitive needs: No Hearing needs: No Vision needs: Yes Review of Systems Const Denies daytime sleepiness, Denies excessive sweating, Denies fatigue, Denies fever(s), Denies lethargy, Denies malaise, Denies night sweats, Denies snoring and Denies weight loss Eyes Denies blurry vision and Denies itchy eyes ENT Denies nasal congestion, Denies post nasal drip, Denies sinus pain, Denies sinus pressure and Denies other ( Thrush) Card Denies chest pain, Denies pedal edema, Denies dyspnea, Denies orthopnea and Denies paroxysmal nocturnal dyspnea Resp Reports cough, Denies hemoptysis, Reports excessive phlegm production, Denies dyspnea, Denies snoring and Denies wheezing GI Denies abdominal pain and Denies heartburn Musc Denies myalgias, Denies arthralgias and Denies joint swelling Skin/Breast Denies rash Neuro Denies memory loss and Denies seizure-like activity Psych Denies abnormal sleep pattern, Denies anxiety and Denies memory loss Endo Denies excessive sweating, Denies fatigue and Denies heat intolerance Toño/Lymph Denies easy bruising Aller/Immun Denies itchy eyes, Denies seasonal rhinorrhea and Denies wheezing Physical Exam Vital Signs: Last Vital Signs Pulse 57 10/13/23 11:06 BP 142/82 H 10/13/23 11:06 Pulse Ox 100 10/13/23 11:06 Oxygen Delivery Method Room Air 10/13/23 11:06 BMI result Body Mass Index 28.7 Const General: no acute distress and alert Nutritional Appearance: not obese Orientation/consciousness: Other orientation findings ( oriented) HEENT Head: Yes atraumatic Eyes General: appearance normal, both eyes and all related structures Sclerae: sclerae normal EOM: EOMs intact bilaterally Neck Neck: Yes supple Lymphatic: no lymphadenopathy noted Resp Effort & Inspection: normal respiratory effort and no use of accessory muscles Auscultation: clear to auscultation bilaterally Cardio Rate: regular rate Rhythm: regular rhythm Heart sounds: no gallops, no murmurs and no rubs Skin General skin exam: other ( warm) Extrem General: No clubbing, No cyanosis and No edema Assessment & Plan Assessment & Plan (1) Bronchitis, mucopurulent recurrent: Code(s): J41.1 - Mucopurulent chronic bronchitis Category: Medical Plan: Now with an acute exacerbation, will treat with a course of Levaquin. Will obtain chest x-ray. (2) Asthma: Code(s): J45.909 - Unspecified asthma, uncomplicated Category: Medical Qualifiers: Asthma severity: severe Asthma persistence: persistent Asthma complication type: with acute exacerbation Qualified Code(s): J45.51 - Severe persistent asthma with (acute) exacerbation Plan: Baseline controlled on Breo, duo nebs, and albuterol MDI. Continue current regimen. (3) 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] Category: Medical Plan: Significantly improved on Hizentra. Continue current regimen. Orders: Orders 2 XR chest 2V Today J41.1 - Mucopurulent chronic bronchitis Medications: Refilled levofloxacin 750 mg PO DAILY 7 tabs 0RF J41.1 - Mucopurulent chronic bronchitis Coding Level of Care Code Est Pt Level 4 (75036) Complex EM visit Add On G2211 Diagnoses Bronchitis, mucopurulent recurrent J41.1 Severe persistent asthma with acute exacerbation J45.51 Asthma severity: severe Asthma persistence: persistent Asthma complication type: with acute exacerbation IgA deficiency D80.2
== END 2023-10-13 11:45 | disposition home or self-care (01) ==
PROVIDERS: PCP Internal Medicine; Visit Provider Internal Medicine Pulmonary Disease
DX: J41.1 Mucopurulent chronic bronchitis (principal); J45.51 Severe persistent asthma with (acute) exacerbation; D80.2 Selective deficiency of immunoglobulin A [IgA]
CPT/HCPCS: 99214; G2211

== ENCOUNTER 2023-10-13 10:58 | Outpatient (REF) | payer OTHER, SELFPAY ==
--- NOTE | ~2023-10-13 | XR_ITS ---
EXAMINATION: XR CHEST CLINICAL INFORMATION: Mucopurulent chronic bronchitis COMPARISON: 01/13/2023 TECHNIQUE: 2 views of the chest were obtained. FINDINGS: No significant interval change. No significant abnormality is noted involving the heart, lungs, mediastinum, bony thorax or soft tissues. XR/XR chest 2V IMPRESSION: No acute cardiopulmonary disease.
== END 2023-10-13 10:59 | disposition home or self-care (01) ==
LOC: HO.XRAY 10:58
PROVIDERS: PCP Internal Medicine; Visit Provider Internal Medicine Pulmonary Disease
DX: J41.1 Mucopurulent chronic bronchitis (principal); J45.51 Severe persistent asthma with (acute) exacerbation; D80.2 Selective deficiency of immunoglobulin A [IgA]
CPT/HCPCS: 71046; 99212

== ENCOUNTER 2023-10-20 13:38 | Outpatient (AMB) | payer OTHER, SELFPAY ==
[2023-10-20 13:50] VITALS: BP 102/90; PULSE 78; O2SAT 100; BMI 28.3
--- NOTE | 2023-10-20 13:50 | MHC.OFFVIS ---
Vital Signs 10/20/23 13:50 Height 5 ft 1 in Weight 150 lb BMI 28.3 BP 102/90 H Blood Pressure Location Lt brachial Position Sitting Pulse 78 Pulse Oximetry (%) 100 Oxygen Delivery Method Room Air Intake Visit Reasons: sick appt/short of breath Intake Note: pt is here for a sick visit, not feeling good at all, she is very tight in chest, short of breath, finished antibiotic, needs medication for nebulizer, and refill albuterol inhaler. She is not sleeping, and is afraid not to wake up from breathing. Community Development Specialist Required: No Allergies No Known Allergies Allergy (Verified 10/20/23 14:16) Medication List - Last Reconciled 10/20/23 by Michelle Robledo MD albuterol sulfate 90 mcg/actuation (Ventolin HFA) 2 puffs inhalation Q6H PRN arm brace (Wrist Brace Medium) use nightly cetirizine 10 mg PO DAILY diclofenac sodium 75 mg PO BID fluticasone furoate-vilanterol 200-25 mcg/dose (Breo Ellipta) 1 ea inhalation DAILY immun glob G(IgG)-pro-IgA 0-50 4 gram/20 mL (20 %) (Hizentra) 7,000 mg (35 mL) subcut QWEEK ipratropium-albuterol 0.5 mg-3 mg(2.5 mg base)/3 mL 3 mL inhalation QID ketotifen fumarate 0.025%(0.035%) drps ophthalmic (eye) levofloxacin 750 mg PO DAILY meclizine 25 mg PO TID PRN 30 days umeclidinium 62.5 mcg/actuation (Incruse Ellipta) 1 inh inhalation DAILY Do you need a note to return to daycare/school/sports/work: No HPI HPI sick appt/short of breath: Details: [place] : 57-year-old lady, nonsmoker, followed for underlying severe persistent allergic asthma, pulmonary nodules, and severe IgA deficiency. Her SS/Ro antibody is positive.? Patient is following up with quill winder.?She was tried on Fasenra with no significant response.? She continues on Hizentra with baseline significantly improved control of her underlying recurrent mucopurulent bronchitis.? After the last office visit patient had missed 1 dose of Hizentra secondary to issues with delivery and approximately 1 week after she started having worsening bronchitic symptoms. She did take 2 days of Levaquin that she has had remaining with some improvement, but not complete resolution of her symptoms. She continues on Breo, duo nebs, and albuterol MDI further reactive airway disease component. Patient seen by Dr. Hayes last week . Has completedcourse of Levaquin . Complains of ongoing cough and scratchy feeling in her upper airways, can not bring up any phlegm. Extremely anxious, with a pattern of hypoventilation. Went to emergency room this morning but left because there was lot of waiting, then called this office and was allowed to come in for an urgent visit. She says that she has been out of Breo, Incruse Ellipta and albuterol inhaler for the last 1 month. She does not have any fever chills or chest pain. Complains of some discomfort in the back and front of the chest at which I think is due to muscular strain, from cough. She is worried about the chest x-ray and I have talked to her in detail about the findings. Basically there is no active infiltrate in the lungs. [facility] Medical History (Updated 10/20/23 @ 14:29 by Michelle Robledo MD) Anxiety Lump of skin Chronic constipation Fibromyalgia SS-A antibody positive Blood D-dimer assay positive Chronic pain syndrome Multiple allergies Sacroiliitis Spondylosis without myelopathy or radiculopathy, cervical region Myofascial pain syndrome BARRON positive Depression Overweight (BMI 25.0-29.9) Asthma Neck pain Pure hypercholesterolemia Anemia Left lumbar radiculopathy Lumbar degenerative disc disease Primary osteoarthritis of hands, bilateral Surgical History Hx of colonoscopy History of esophagogastroduodenoscopy (EGD) History of total abdominal hysterectomy Family History Father Myocardial infarction Stomach cancer Mother Myocardial infarction Osteoporosis Diabetes Brother HIV (human immunodeficiency virus infection) Sister In good health Social History Housing: Apartment Alcohol intake: never Patient Tobacco Use Status: Never used Tobacco e-Cigarette/Vaping Use: Never Used Second Hand Smoke Exposure: No service: No Current occupational status: retired and disabled Cognitive needs: No Hearing needs: No Vision needs: Yes Review of Systems Const Denies daytime sleepiness, Denies excessive sweating, Denies fatigue, Denies fever(s), Denies lethargy, Denies malaise, Denies night sweats, Denies snoring and Denies weight loss Eyes Denies blurry vision and Denies itchy eyes ENT Denies nasal congestion, Denies post nasal drip, Denies sinus pain, Denies sinus pressure and Denies other ( Thrush) Card Denies chest pain, Denies pedal edema, Denies dyspnea, Denies orthopnea and Denies paroxysmal nocturnal dyspnea Resp Reports cough, Denies hemoptysis, Reports excessive phlegm production, Denies dyspnea, Denies snoring and Denies wheezing GI Denies abdominal pain and Denies heartburn Musc Denies myalgias, Denies arthralgias and Denies joint swelling Skin/Breast Denies rash Neuro Denies memory loss and Denies seizure-like activity Psych Denies abnormal sleep pattern, Denies anxiety and Denies memory loss Endo Denies excessive sweating, Denies fatigue and Denies heat intolerance Toño/Lymph Denies easy bruising Aller/Immun Denies itchy eyes, Denies seasonal rhinorrhea and Denies wheezing Physical Exam Vital Signs: Last Vital Signs Pulse 78 10/20/23 13:50 BP 102/90 H 10/20/23 13:50 Pulse Ox 100 10/20/23 13:50 Oxygen Delivery Method Room Air 10/20/23 13:50 BMI result Body Mass Index 28.3 Const General: no acute distress and alert Nutritional Appearance: not obese Orientation/consciousness: Other orientation findings ( oriented) HEENT Head: Yes atraumatic Eyes General: appearance normal, both eyes and all related structures Sclerae: sclerae normal EOM: EOMs intact bilaterally Neck Neck: Yes supple Lymphatic: no lymphadenopathy noted Resp Other: I LISTEN TO HER LUNGS VERY CAREFULLY AND THERE CLEAR ON BOTH SIDES. THERE ARE NO WHEEZES RHONCHI OR CREPITATIONS. Effort & Inspection: normal respiratory effort and no use of accessory muscles Auscultation: clear to auscultation bilaterally Cardio Rate: regular rate Rhythm: regular rhythm Heart sounds: no gallops, no murmurs and no rubs Skin General skin exam: other ( warm) Extrem General: No clubbing, No cyanosis and No edema Results Reviewed Results Reviewed: CHEST X-RAY PERFORMED ON 10/12, IS UNREMARKABLE, THERE IS NO INFILTRATE OR MASS. Assessment & Plan Assessment & Plan (1) Bronchitis, mucopurulent recurrent: Comment: THERE IS HISTORY OF RECURRENT, BRONCHITIS IN HER CASE . THIS IS PROBABLY RELATED TO HER IMMUNE DEFICIENCY (IGA ) SHE HAS BEEN TREATED WITH A COURSE OF LEVAQUIN. I DO NOT THINK THAT SHE HAS ANY INFECTIOUS PROCESS AT THIS TIME Code(s): J41.1 - Mucopurulent chronic bronchitis Category: Medical Plan: PATIENT REASSURED. I TRY TO EXPLAINED TO HER IN DETAIL AND TRY TO CALM HER DOWN. I DID TELL HER THAT SHE HAS RECEIVED THE OPTIMAL ANTIBIOTIC TREATMENT. AT THIS POINT THERE IS NO NEED OF GIVING HER ANOTHER ANTIBIOTIC. (2) IgA deficiency, selective: Comment: SHE HAS CHRONIC IMMUNE DEFICIENCY DUE TO LACK OF IGA. Code(s): D80.2 - Selective deficiency of immunoglobulin A [IgA] Category: Medical Plan: ADVISE THAT SHE SHOULD TAKE HER SUBCU INJECTION OF HIZENTRA Q.2 WEEKS REGULARLY. (3) Asthma: Comment: SHE SEEMS TO HAVE CHRONIC PERSISTENT BRONCHIAL ASTHMA. DUE TO A BOUT OF ACUTE BRONCHITIS SHE MAY HAVE AN EXACERBATION AT THIS TIME. Code(s): J45.909 - Unspecified asthma, uncomplicated Category: Medical Qualifiers: Asthma complication type: with acute exacerbation Asthma persistence: persistent Asthma severity: severe Qualified Code(s): J45.51 - Severe persistent asthma with (acute) exacerbation Plan: I HAVE RENEWED HER INHALERS AND SEND THE PRESCRIPTION. WILL ALSO ADD A COURSE OF PREDNISONE 10 MG 2 TABLET B.I.D. FOR 1 WEEK. (4) Anxiety: Comment: PATIENT IS EXTREMELY ANXIOUS AT THIS TIME AND I COULD WITNESS SOME DEGREE OF HYPOVENTILATION. Code(s): F41.9 - Anxiety disorder, unspecified Category: Medical Plan: I EXPLAINED TO HER ABOUT HER PULMONARY STATUS, I TRY TO REASSURE HER MUCH POSSIBLE. I TOLD HER THAT I AM GOING TO RENEW ALL HER PULMONARY MEDS RIGHT AWAY. HOPEFULLY SHE UNDERSTANDS AND WOULD GO HOME AND RELAX. WILL SET UP ANOTHER FOLLOW-UP VISIT WITH DR. HAYES IN 2 WEEKS Medications: New fluticasone furoate-vilanterol 200-25 mcg/dose (Breo Ellipta) 1 inh inhalation DAILY 60 ea 1RF ASTHMA/COPD 30 days prednisone 20 mg (2 x 10 mg) PO BID 28 tabs 0RF ASTHMA EXCERBATION 7 days Changed From umeclidinium 62.5 mcg/actuation (Incruse Ellipta) 1 inh inhalation DAILY To umeclidinium 62.5 mcg/actuation (Incruse Ellipta) 1 inh inhalation DAILY 30 ea 1RF ASTHMA/COPD 30 days Refilled albuterol sulfate 90 mcg/actuation (Ventolin HFA) 2 puffs inhalation Q6H PRN 18 ea 4RF for wheezing J45.40 - Moderate persistent asthma, uncomplicated Coding Level of Care Code Est Pt Level 4 (59267) Diagnoses Bronchitis, mucopurulent recurrent J41.1 IgA deficiency, selective D80.2 Severe persistent asthma with acute exacerbation J45.51 Asthma complication type: with acute exacerbation Asthma persistence: persistent Asthma severity: severe Anxiety F41.9
== END 2023-10-20 14:16 | disposition home or self-care (01) ==
PROVIDERS: PCP Internal Medicine; Visit Provider Internal Medicine
DX: J41.1 Mucopurulent chronic bronchitis (principal); D80.2 Selective deficiency of immunoglobulin A [IgA]; J45.51 Severe persistent asthma with (acute) exacerbation; F41.9 Anxiety disorder, unspecified
CPT/HCPCS: 99214

== ENCOUNTER → 2023-10-20 13:38 | Outpatient (BNVA) | payer OTHER, SELFPAY | PROVIDERS: PCP Internal Medicine; Visit Provider Internal Medicine | DX: J45.40 Moderate persistent asthma, uncomplicated (principal); J41.1 Mucopurulent chronic bronchitis; J45.51 Severe persistent asthma with (acute) exacerbation; R91.8 Other nonspecific abnormal finding of lung field; D80.2 Selective deficiency of immunoglobulin A [IgA]; F41.9 Anxiety disorder, unspecified | CPT/HCPCS: 99212 ==

== ENCOUNTER 2023-11-06 11:16 | Outpatient (AMB) | payer OTHER, SELFPAY ==
[2023-11-06 11:17] VITALS: BP 109/62; PULSE 60; O2SAT 98; BMI 28.9
--- NOTE | 2023-11-06 11:17 | MHC.OFFVIS ---
Vital Signs 11/06/23 11:17 Height 5 ft 1 in Weight 153 lb BMI 28.9 BP 109/62 Blood Pressure Location Rt brachial Position Sitting Pulse 60 Pulse Source Doppler Pulse Oximetry (%) 98 Oxygen Delivery Method Room Air Intake Visit Reasons: Shortness of breath Geophysical Engineer Required: Yes Geophysical Engineer Name: Chlesey Epstein.L.Rachael Allergies No Known Allergies Allergy (Verified 11/06/23 11:25) HPI HPI Shortness of breath: Details: 57-year-old lady, nonsmoker, followed for underlying severe persistent allergic asthma, pulmonary nodules, and severe IgA deficiency. Her SS/Ro antibody is positive.? Patient is following up with contracts representative.?She was tried on Fasenra with no significant response.? She continues on Hizentra with baseline significantly improved control of her underlying recurrent mucopurulent bronchitis.? She did have recent exacerbation treated with a course of Levaquin and prednisone and reports improved cough and sputum production. However, she does complain newly developed orthopnea and paroxysmal nocturnal dyspnea. [facility] Medical History (Updated 11/06/23 @ 12:14 by Owen Hayes MD) Anxiety Lump of skin Chronic constipation Fibromyalgia SS-A antibody positive Blood D-dimer assay positive Chronic pain syndrome Multiple allergies Sacroiliitis Spondylosis without myelopathy or radiculopathy, cervical region Myofascial pain syndrome BARRON positive Depression Overweight (BMI 25.0-29.9) Asthma Neck pain Pure hypercholesterolemia Anemia Left lumbar radiculopathy Lumbar degenerative disc disease Primary osteoarthritis of hands, bilateral Surgical History Hx of colonoscopy History of esophagogastroduodenoscopy (EGD) History of total abdominal hysterectomy Family History Father Myocardial infarction Stomach cancer Mother Myocardial infarction Osteoporosis Diabetes Brother HIV (human immunodeficiency virus infection) Sister In good health Social History Housing: Apartment Alcohol intake: never Patient Tobacco Use Status: Never used Tobacco e-Cigarette/Vaping Use: Never Used Second Hand Smoke Exposure: No service: No Current occupational status: retired and disabled Cognitive needs: No Hearing needs: No Vision needs: Yes Review of Systems Card Denies chest pain, Reports orthopnea and Reports paroxysmal nocturnal dyspnea Resp Reports cough and Denies hemoptysis Physical Exam Vital Signs: Last Vital Signs Pulse 60 11/06/23 11:17 BP 109/62 11/06/23 11:17 Pulse Ox 98 11/06/23 11:17 Oxygen Delivery Method Room Air 11/06/23 11:17 BMI result Body Mass Index 28.9 Const General: no acute distress and alert Nutritional Appearance: not obese Orientation/consciousness: Other orientation findings ( oriented) HEENT Head: Yes atraumatic Eyes General: appearance normal, both eyes and all related structures Sclerae: sclerae normal EOM: EOMs intact bilaterally Neck Neck: Yes supple Lymphatic: no lymphadenopathy noted Resp Effort & Inspection: normal respiratory effort and no use of accessory muscles Auscultation: clear to auscultation bilaterally Cardio Rate: regular rate Rhythm: regular rhythm Heart sounds: no gallops, no murmurs and no rubs Skin General skin exam: other ( warm) Extrem General: No clubbing, No cyanosis and No edema Assessment & Plan Assessment & Plan (1) Orthopnea: Code(s): R06.01 - Orthopnea Category: Medical Plan: Appears to have cardiac component. Will refer to Cardiology for further evaluation. (2) IgA deficiency, selective: Comment: Code(s): D80.2 - Selective deficiency of immunoglobulin A [IgA] Category: Medical Plan: Significantly improved on Hizentra. Continue current regimen. (3) Asthma: Code(s): J45.909 - Unspecified asthma, uncomplicated Category: Medical Qualifiers: Asthma severity: severe Asthma persistence: persistent Asthma complication type: with acute exacerbation Qualified Code(s): J45.51 - Severe persistent asthma with (acute) exacerbation Plan: Baseline controlled on Breo, Incruse, duo nebs, and albuterol MDI. Continue current regimen. Orders: Referrals Cardiology Referral R06.01 - Orthopnea Medications: New ipratropium-albuterol 0.5 mg-3 mg(2.5 mg base)/3 mL 3 mL inhalation QID 270 mL 4RF wheezing Coding Level of Care Code Est Pt Level 4 (75212) Complex EM visit Add On G2211 Diagnoses Orthopnea R06.01 IgA deficiency, selective D80.2 Severe persistent asthma with acute exacerbation J45.51 Asthma severity: severe Asthma persistence: persistent Asthma complication type: with acute exacerbation
== END 2023-11-06 11:44 | disposition home or self-care (01) ==
PROVIDERS: PCP Internal Medicine; Visit Provider Internal Medicine Pulmonary Disease
DX: R06.01 Orthopnea (principal); D80.2 Selective deficiency of immunoglobulin A [IgA]; J45.51 Severe persistent asthma with (acute) exacerbation
CPT/HCPCS: 99214; G2211

== ENCOUNTER → 2023-11-06 11:16 | Outpatient (BNVA) | payer OTHER, SELFPAY | PROVIDERS: PCP Internal Medicine; Visit Provider Internal Medicine Pulmonary Disease | DX: J45.51 Severe persistent asthma with (acute) exacerbation (principal); R06.01 Orthopnea; D80.2 Selective deficiency of immunoglobulin A [IgA] | CPT/HCPCS: 99212 ==

== ENCOUNTER 2023-12-04 10:00 | Outpatient (AMB) | payer OTHER, SELFPAY ==
[2023-12-04 10:08] VITALS: BP 96/74; PULSE 56; O2SAT 97; BMI 28.3
--- NOTE | 2023-12-04 10:08 | A.OFFPC_ITS ---
Vital Signs 12/04/23 10:08 Height 5 ft 1 in Weight 150 lb BMI 28.3 BP 96/74 Blood Pressure Location Lt brachial Position Sitting Pulse 56 Pulse Source Pulse Oximeter Pulse Oximetry (%) 97 Oxygen Delivery Method Room Air Intake Visit Reasons: asthma, migraine, hyperlipidemia Accompanied by: Self / Same As Patient Allergies No Known Allergies Allergy (Verified 12/04/23 10:36) Medication List - Last Reconciled 12/04/23 by Charlie Brock MD albuterol sulfate 90 mcg/actuation (Ventolin HFA) 2 puffs inhalation Q6H PRN arm brace (Wrist Brace Medium) use nightly cetirizine 10 mg PO DAILY diclofenac sodium 75 mg PO BID fluticasone furoate-vilanterol 200-25 mcg/dose (Breo Ellipta) 1 ea inhalation DAILY fluticasone furoate-vilanterol 200-25 mcg/dose (Breo Ellipta) 1 inh inhalation DAILY 30 days immun glob G(IgG)-pro-IgA 0-50 4 gram/20 mL (20 %) (Hizentra) 7,000 mg (35 mL) subcut QWEEK ipratropium-albuterol 0.5 mg-3 mg(2.5 mg base)/3 mL 3 mL inhalation QID ketotifen fumarate 0.025%(0.035%) drps ophthalmic (eye) meclizine 25 mg PO TID PRN 30 days umeclidinium 62.5 mcg/actuation (Incruse Ellipta) 1 inh inhalation DAILY 30 days Tobacco use date assessed: 12/04/23 Dental Screening Dental Screen Date: 12/04/23 Did you have a dental visit in the last 12 months?: No Did you have a dental problem in the last 6 months where you did not have access to dental care?: No Was dental information given to patient?: Patient has dentist HPI asthma, migraine, hyperlipidemia HPI Details Patient comes in today for her follow up visit States that she currently feels okay She is presently still on weekly Hizentra IV infusion for her severe IgA deficiency and persistent allergic asthma and reports (+) improvement of her recurrent mucopurulent cough and respiratory symptoms (she has failed Tx with Fasenra in the past) She was seeing rheumatology previously for her arthralgias but has not been back to see them since her last visit with Dr. Camargo in January 2023 States that she was referred to cardiology by Dr. Hayes for some recent onset of symptoms of dyspnea and orthopnea and she is now scheduled to be seen by Dr. Hinkle on 02/24/2024 She denies any headaches but reports feeling dizzy on and off for a few weeks now Denies any exertional chest pains No nausea/vomiting, no abdominal pain No change in bowel habits noted She would like to know if she had any improvements noted in her labs done back in June 2023 after her last appointment here [facility] Medical History Anxiety Lump of skin Chronic constipation Fibromyalgia SS-A antibody positive Blood D-dimer assay positive Chronic pain syndrome Multiple allergies Sacroiliitis Spondylosis without myelopathy or radiculopathy, cervical region Myofascial pain syndrome BARRON positive Depression Overweight (BMI 25.0-29.9) Asthma Neck pain Pure hypercholesterolemia Anemia Left lumbar radiculopathy Lumbar degenerative disc disease Primary osteoarthritis of hands, bilateral Surgical History Hx of colonoscopy History of esophagogastroduodenoscopy (EGD) History of total abdominal hysterectomy Family History Father Myocardial infarction Stomach cancer Mother Myocardial infarction Osteoporosis Diabetes Brother HIV (human immunodeficiency virus infection) Sister In good health Social History Housing: Apartment Alcohol intake: never Patient Tobacco Use Status: Never used Tobacco e-Cigarette/Vaping Use: Never Used Second Hand Smoke Exposure: No service: No Current occupational status: retired and disabled Cognitive needs: No Hearing needs: No Vision needs: Yes Questionnaire PHQ-9 Over the last 2 weeks, how often have you been bothered by any of the following problems? 1. Little interest or pleasure in doing things: not at all 2. Feeling down, depressed, or hopeless: not at all 3. Trouble falling or staying asleep, or sleeping too much: not at all 4. Feeling tired or having little energy: not at all 5. Poor appetite or overeating: not at all 6. Feeling bad about yourself - or that you are a failure or have let yourself or your family down: not at all 7. Trouble concentrating on things, such as reading the newspaper or watching television: not at all 8. Moving or speaking so slowly that other people could have noticed. Or the opposite - being so fidgety or restless that you have been moving around a lot more than usual: not at all 9. Thoughts that you would be better off or of hurting yourself in some way: not at all Total score: 0 Depression Screening Interpretation: Negative (is seeing therapist/psychiatrist) Depression Screening Done: Yes 57537 - PHQ-9 Billing: Yes Source: Developed by Drs. Florian Cr, Keyla Taveras, Bautista Dominique and colleagues, with an educational luz maria from [employer]. Thrive Questionnaire Date Thrive assessed: 12/04/23 I am a: Patient What is your living situation today?: I have a steady place to live Within the past 12 months, did the food you bought not last and you didn't have the money to get more?: Never true Within the past 12 months, did you worry whether your food would run out before you got money to buy more?: Never true Do you have trouble paying for medicines?: No Do you have trouble getting transportation to medical appointments?: No Do you have trouble paying your heating and electricity bill?: No Do you have trouble taking care of your child, family member or friend?: No Do you have trouble with day-to-day activities such as bathing, preparing meals, shopping, managing finances, etc.?: No Are you currently unemployed and looking for a job?: No Are you interested in more education?: No Please select the resources that you would like help with: None Currently or been in a relationship where the following occur: No concerns reported THRIVE Score: 0 AUDIT C Alcohol Use Questionnaire (AUDIT-C) 1. How often do you have a drink containing alcohol?: Monthly or less 2. How many drinks containing alcohol do you have on a typical day when you are drinking?: 1 or 2 3. How often do you have six or more drinks on one occasion?: Never Total Score: 1 Score Reviewed/Action Taken: Yes OPHELIA-7 AMB Questionnaire OPHELIA-7 Date OPHELIA - 7 assessed: 12/04/23 Feeling nervous, anxious, or on edge: 0 = Not at all Not being able to stop or control worryin = Not at all Worrying too much about different things: 0 = Not at all Trouble relaxin = Not at all Being so restless that it is hard to sit still: 0 = Not at all Becoming easily annoyed or irritable: 0 = Not at all Feeling afraid as if something awful might happen: 0 = Not at all Total OPHELIA-7 score (0-4 normal; 5-9 mild; 10-14 moderate; 15-21 severe): 0 Source: Developed by Drs. Florian Cr, Keyla Taveras, Bautista Dominique and colleagues, with an educational luz maria from [employer]. Review of Systems Const Denies chills, Reports fatigue, Denies fever(s) and Denies headache(s) ENT Denies dysphagia, Reports dizziness (on and off), Denies otalgia, Denies headache(s), Reports neck pain, Denies odynophagia and Denies sore throat Card Denies chest pain, Denies palpitations, Reports dyspnea on exertion and Reports orthopnea (lately) Resp Denies chest congestion, Denies cough, Reports dyspnea on exertion and Denies wheezing GI Denies abdominal pain, Denies constipation, Denies dysphagia, Denies diarrhea, Denies nausea, Denies odynophagia and Denies vomiting Denies difficulty voiding, Denies nocturia and Denies dysuria Musc Reports back pain (over the lower back), Reports arthralgias (involving multiple joints, including the hands/fingers) and Reports neck pain Skin/Breast Denies rash Neuro Reports dizziness (on and off) and Denies headache(s) Endo Reports fatigue and Denies palpitations Aller/Immun Denies wheezing Physical exam (Primary Care) Vital Signs: Last Vital Signs Pulse 56 12/04/23 10:08 BP 96/74 12/04/23 10:08 Pulse Ox 97 12/04/23 10:08 Oxygen Delivery Method Room Air 12/04/23 10:08 BMI result Body Mass Index 28.3 Tobacco/Smoking Status: Tobacco use Status Tobacco use date assessed 12/04/23 12/04/23 10:11 Patient Tobacco Use Status Never used Tobacco 12/04/23 10:11 e-Cigarette/Vaping Use Never Used 12/04/23 10:11 PHQ-9: PHQ-9 Score PHQ-9: Total score 0 12/04/23 19:05 Depression Screening Interpretation: Negative (is seeing therapist/psychiatrist) Thrive Assessment: Date of Thrive Assessment Date Thrive assessed 12/04/23 12/04/23 10:11 Currently or been in a relationship where the following occur: No concerns reported Const General: no acute distress and alert HENMT Ears: TM's normal bilaterally and EAC's normal Throat: Yes posterior oropharynx normal and Yes tonsils normal (no TP congestion noted) Neck Neck: Yes no lymphadenopathy and Yes supple Thyroid: Thyroid normal Resp Auscultation: clear to auscultation bilaterally, no rales and no wheezes Cardio Rate: regular rate Rhythm: regular rhythm Heart sounds: no murmurs GI Palpation (GI): Soft to palpation and nontender Auscultation: normal bowel sounds General: Yes no CVA tenderness Back/Spine/Pelvis Back: no CVA tenderness Cervical Spine: cervical muscular tenderness and Cervical spine tenderness Thoracic/Lumbar Spine: lumbar spinal tenderness Skin Rashes: no rashes Extrem Other: (+) prominent varicose veins over both lower extremities; no thrombosis noted General: Yes no clubbing, cyanosis or edema Results Reviewed Results Reviewed: Laboratory Tests 07/21/23 09:53 WBC 3.9 L Hgb 11.2 L Hct 34.8 L Plt Count 262 Sodium 142 Potassium 3.6 Creatinine 0.63 Estimated GFR > 60 Fasting Glucose 71 Calcium 9.4 AST 24 ALT 34 H Triglycerides 60 Cholesterol 208 H HDL Cholesterol 63 Laboratory Tests 07/21/23 09:53 LDL Cholesterol, Calc 133 H Assessment and Plan Assessment & Plan (1) Pure hypercholesterolemia: Code(s): E78.00 - Pure hypercholesterolemia, unspecified Plan: Results of her labs done back in June 2023 reviewed and discussed with patient - advised that her LDL cholesterol level has increased slightly from previous and is now at 133 mg/dl (from 127 mg/dl previously) Reinforced low cholesterol diet - patient continues to prefer to avoid taking cholesterol-lowering Rx as much as possible Will recheck her labs and fasting lipids in 4 months for follow up (2) Asthma: Code(s): J45.909 - Unspecified asthma, uncomplicated Qualifiers: Asthma complication type: uncomplicated Asthma persistence: persistent Asthma severity: severe Qualified Code(s): J45.50 - Severe persistent asthma, uncomplicated Plan: Her asthma appears better controlled lately on Hizentra infusion Continue Breo Ellipta 200-25 mcg 1 inhalation QD, Incruse Ellipta 62.5 mcg 1 inhalation QD and Albuterol HFA 2 inhalations Q 6 hours PRN She also uses Duoneb via nebulizer 4 times a day as needed and Tobramycin was added to this by pulmonary recently, to add to her nebulizer solution for 28 days on and then 28 days off alternately Follow up with pulmonary as scheduled (3) 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] Plan: She has been seeing and following up with allergy & immunology in the past but we have not received any correspondence from them since June 2021 She is currently on IV Ig Tx with Hizentra 7000 mg weekly and appears to be doing well - to continue on Hizentra for now under supervision of pulmonary at [facility] (4) Multiple allergies: Code(s): Z88.9 - Allergy status to unspecified drugs, medicaments and biological substan aston Plan: Continue Cetirizine 10 mg QD PRN Follow up with firefighter as scheduled (5) Anemia: Code(s): D64.9 - Anemia, unspecified Qualifiers: Anemia type: unspecified type Qualified Code(s): D64.9 - Anemia, unspecified Plan: Her H/H have declined again slightly on her recent labs, now at 11.2 and 34.8 Will continue to monitor her CBC regularly (6) Varicose veins of both lower extremities: Code(s): I83.93 - Asymptomatic varicose veins of bilateral lower extremities Qualifiers: Varicose vein complication: other Qualified Code(s): I83.893 - Varicose veins of bilateral lower extremities with other complications Plan: Follow up with vascular surgery as scheduled (7) Lumbar degenerative disc disease: Code(s): M51.36 - Other intervertebral disc degeneration, lumbar region Plan: X-rays of the lumbar spine done back in October 2019 revealed progressive 1 cm grade 2 anterolisthesis of L5 on S1 in the setting of suspected L5 pars defect Reinforced activity and weight-lifting restrictions to avoid aggravating her lower back symptoms Continue Tramadol 50 mg 2 tablets at a time up to 4 times a day as needed Follow up with pain management as scheduled - states that her low back pain has improved a lot with injection Tx in the past and it has not been bothering her lately (8) Spondylosis without myelopathy or radiculopathy, cervical region: Code(s): M47.812 - Spondylosis without myelopathy or radiculopathy, cervical region Plan: She has been receiving injections into her cervical spine and trapezius muscles from pain management; notes that her neck pain has been stable lately Follow up with [facility] Pain Management as scheduled (9) Primary osteoarthritis of hands, bilateral: Code(s): M19.041 - Primary osteoarthritis, right hand; M19.042 - Primary osteoarthritis, left hand Plan: X-rays of both hands done in the past showed mild OA changes of the DIP joints Tests done in the past only showed (+) anti-Ro Ab but she has no evidence of active inflammatory arthritis that might be associated with her positive Sjogren's antibody EMG and NCV done back in late December 2019 revealed normal findings with no evidence of nerve entrapment or carpal tunnel syndrome; patient also had EMG done at [facility] in September 2018 that also came out with normal results She has been seen and evaluated at [facility] [place] last year and they recommended increasing her dose of NSAIDs and to follow up with them only on a PRN basis She is also again encouraged to continue with frequent and regular hand exercises to help manage her hand stiffness and pain She is now following up with [facility] Rheumatology regularly (10) Chronic constipation: Code(s): K59.09 - Other constipation Plan: Patient is encouraged again to increase her oral fluids and dietary fiber She is currently doing well on Senna 8.6 mg 2 tablets QD and Benefiber supplements Follow up with GI as scheduled (11) Anetoderma: Code(s): L90.8 - Other atrophic disorders of skin Plan: Follow up with dermatology as scheduled (12) Depression: Code(s): F32.9 - Major depressive disorder, single episode, unspecified Qualifiers: Active/Remission status: currently active Depression Type: major depressive disorder Major depression episode severity: unspecified Major depression recurrence: recurrent Qualified Code(s): F33.9 - Major depressive disorder, recurrent, unspecified Plan: She was on Venlafaxine 75 mg QD previously but it appears she came off her med a few months ago Follow up with psychiatry as scheduled Patient also sees/talks to her therapist regularly (13) Overweight (BMI 25.0-29.9): Code(s): E66.3 - Overweight Plan: Reinforced diet/exercise as tolerated/lose weight Plan Follow up in 4 months Orders: Orders Comprehensive [place]. Panel Fast 02/22/24 E78.00 - Pure hypercholesterolemia, u nspecified TSH reflex Free T4 02/22/24 E78.00 - Pure hypercholesterolemia, unspecified Vitamin D 25-OH Total 02/22/24 E55.9 - Vitamin D deficiency, unspecified Lipid Panel 02/22/24 E78.00 - Pure hypercholesterolemia, unspecified Complete Blood Count Auto Diff 02/22/24 D64.9 - Anemia, unspecified UA CC w/rflx Micro + Cult 02/22/24 R30.0 - Dysuria Coding Level of Care Code Est Pt Level 4 (17895) Complex EM visit Add On G2211 Diagnoses Pure hypercholesterolemia E78.00 Severe persistent asthma without complication J45.50 Asthma complication type: uncomplicated Asthma persistence: persistent Asthma severity: severe IgA deficiency D80.2 Multiple allergies Z88.9 Anemia, unspecified type D64.9 Anemia type: unspecified type Varicose veins of bilateral lower extremities with other complications I83.893 Varicose vein complication: other Lumbar degenerative disc disease M51.36 Spondylosis without myelopathy or radiculopathy, cervical region M47.812 Primary osteoarthritis of hands, bilateral M19.041; M19.042 Chronic constipation K59.09 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 Episode of recurrent major depressive disorder, unspecified depression episode severity F33.9 Active/Remission status: currently active Depression Type: major depressive disorder Major depression episode severity: unspecified Major depression recurrence: recurrent Overweight (BMI 25.0-29.9) E66.3
== END 2023-12-04 10:52 | disposition home or self-care (01) ==
PROVIDERS: PCP Internal Medicine; Visit Provider Internal Medicine
DX: E78.00 Pure hypercholesterolemia, unspecified (principal); J45.50 Severe persistent asthma, uncomplicated; D80.2 Selective deficiency of immunoglobulin A [IgA]; F33.9 Major depressive disorder, recurrent, unspecified; Z88.9 Allergy status to unspecified drugs, medicaments and biological substances; D64.9 Anemia, unspecified; I83.893 Varicose veins of bilateral lower extremities with other complications; M51.36 Other intervertebral disc degeneration, lumbar region; M47.812 Spondylosis without myelopathy or radiculopathy, cervical region; M19.041 Primary osteoarthritis, right hand; M19.042 Primary osteoarthritis, left hand; K59.09 Other constipation
CPT/HCPCS: 99214; G2211

== ENCOUNTER 2023-12-18 11:17 | Outpatient (AMB) | payer OTHER, SELFPAY ==
[2023-12-18 11:21] VITALS: BP 122/70; PULSE 61; O2SAT 98; BMI 28.5
--- NOTE | 2023-12-18 11:21 | MHC.OFFVIS ---
Vital Signs 12/18/23 11:21 Height 5 ft 1 in Weight 151 lb BMI 28.5 BP 122/70 Blood Pressure Location Rt brachial Position Sitting Pulse 61 Pulse Source Doppler Pulse Oximetry (%) 98 Oxygen Delivery Method Room Air Intake Visit Reasons: Shortness of breath Director Of Laboratory Operations Required: Yes Director Of Laboratory Operations Name: Chelsey Chou C.L.M Allergies No Known Allergies Allergy (Verified 12/04/23 10:36) HPI HPI Shortness of breath: Details: 57-year-old lady, nonsmoker, followed for underlying severe persistent allergic asthma, pulmonary nodules, and severe IgA deficiency. Her SS/Ro antibody is positive.? Patient is following up with lab nurse.?She was tried on Fasenra with no significant response.? She continues on Hizentra with baseline significantly improved control of her underlying recurrent mucopurulent bronchitis.? She does complain of an acute exacerbation over the last 3 weeks symptomatic with productive cough and chest discomfort, particularly with coughing. [facility] Medical History Anxiety Lump of skin Chronic constipation Fibromyalgia SS-A antibody positive Blood D-dimer assay positive Chronic pain syndrome Multiple allergies Sacroiliitis Spondylosis without myelopathy or radiculopathy, cervical region Myofascial pain syndrome BARRON positive Depression Overweight (BMI 25.0-29.9) Asthma Neck pain Pure hypercholesterolemia Anemia Left lumbar radiculopathy Lumbar degenerative disc disease Primary osteoarthritis of hands, bilateral Surgical History Hx of colonoscopy History of esophagogastroduodenoscopy (EGD) History of total abdominal hysterectomy Family History Father Myocardial infarction Stomach cancer Mother Myocardial infarction Osteoporosis Diabetes Brother HIV (human immunodeficiency virus infection) Sister In good health Social History Housing: Apartment Alcohol intake: never Patient Tobacco Use Status: Never used Tobacco e-Cigarette/Vaping Use: Never Used Second Hand Smoke Exposure: No service: No Current occupational status: retired and disabled Cognitive needs: No Hearing needs: No Vision needs: Yes Review of Systems ENT Reports nasal congestion, Reports post nasal drip and Reports sinus pressure Resp Reports cough and Reports excessive phlegm production Physical Exam Vital Signs: Last Vital Signs Pulse 61 12/18/23 11:21 BP 122/70 12/18/23 11:21 Pulse Ox 98 12/18/23 11:21 Oxygen Delivery Method Room Air 12/18/23 11:21 BMI result Body Mass Index 28.5 Const General: no acute distress and alert Nutritional Appearance: not obese Orientation/consciousness: Other orientation findings ( oriented) HEENT Head: Yes atraumatic Eyes General: appearance normal, both eyes and all related structures Sclerae: sclerae normal EOM: EOMs intact bilaterally Neck Neck: Yes supple Lymphatic: no lymphadenopathy noted Resp Effort & Inspection: normal respiratory effort and no use of accessory muscles Auscultation: clear to auscultation bilaterally Cardio Rate: regular rate Rhythm: regular rhythm Heart sounds: no gallops, no murmurs and no rubs Skin General skin exam: other ( warm) Extrem General: No clubbing, No cyanosis and No edema Assessment & Plan Assessment & Plan (1) IgA deficiency, selective: Comment: Code(s): D80.2 - Selective deficiency of immunoglobulin A [IgA] Category: Medical Plan: Patient continues SCIG (Hizentra) with significantly decreased recurrences of her upper respiratory infections. (2) Bronchitis, mucopurulent recurrent: Code(s): J41.1 - Mucopurulent chronic bronchitis Category: Medical Plan: Now with an acute exacerbation, will treat with a course of doxycycline. Will obtain CT chest. Will refer to [facility] Pulmonary Department for 2nd opinion per patient's request. (3) Orthopnea: Code(s): R06.01 - Orthopnea Category: Medical Plan: Patient is awaiting cardiology evaluation. Orders: Orders CT chest wo IV con Today J41.1 - Mucopurulent chronic bronchitis Referrals Pulmonology Referral J41.1 - Mucopurulent chronic bronchitis Medications: New doxycycline hyclate 100 mg PO BID 14 tabs 0RF J41.1 - Mucopurulent chronic bronchitis Coding Level of Care Code Est Pt Level 4 (69788) Diagnoses IgA deficiency, selective D80.2 Bronchitis, mucopurulent recurrent J41.1 Orthopnea R06.01
== END 2023-12-18 11:37 | disposition home or self-care (01) ==
PROVIDERS: PCP Internal Medicine; Visit Provider Internal Medicine Pulmonary Disease
DX: D80.2 Selective deficiency of immunoglobulin A [IgA] (principal); J41.1 Mucopurulent chronic bronchitis; R06.01 Orthopnea
CPT/HCPCS: 99214

== ENCOUNTER → 2023-12-18 11:17 | Outpatient (BNVA) | payer OTHER, SELFPAY | PROVIDERS: PCP Internal Medicine; Visit Provider Internal Medicine Pulmonary Disease | DX: D80.2 Selective deficiency of immunoglobulin A [IgA] (principal); J44.1 Chronic obstructive pulmonary disease with (acute) exacerbation; R06.01 Orthopnea | CPT/HCPCS: 99212 ==

== ENCOUNTER 2023-12-23 09:24 | Emergency (ER) | payer OTHER, SELFPAY ==
--- NOTE | ~2023-12-23 | XR_ITS ---
EXAMINATION: XR CHEST CLINICAL INFORMATION: Cough COMPARISON: 10/13/2023 TECHNIQUE: 2 views of the chest were obtained. FINDINGS: No significant abnormality is noted involving the heart, lungs, mediastinum, bony thorax or soft tissues. XR/XR chest 2V IMPRESSION: Unremarkable examination. Electronically signed by: Jonathan Thomas MD 12/23/2023 10:37 AM EDT
[2023-12-23 09:33] VITALS: BP 142/102; PULSE 54; RESP 18; TEMP 36.4; O2SAT 100; BMI 28.3
[2023-12-23 10:36] LABS: Influenza A PCR NEGATIVE (Negative); Influenza B PCR NEGATIVE (Negative); Resp Syncy Virus RNA Qual PCR NEGATIVE (Negative); SARS COV2 PCR INHOUSE POSITIVE (Negative)
--- NOTE | 2023-12-23 11:55 | ED.GENADULT ---
HPI - General Adult General Chief complaint: Upper Respiratory Symptoms Stated complaint: cold cough fever Time Seen by Provider: 12/23/23 10:49 Source: patient Mode of arrival: ambulatory Limitations: no limitations History of Present Illness ED Provider: Sonny Lopez HPI narrative: 58-year-old female history of asthma COPD presents to ED for 3 weeks of coughing, body aches, chest wall pain, and chills. Patient states her son also has similar symptoms. Patient denies any calf pain, leg swelling, or pleurisy. Related Data Home Medications ?Medication ?Instructions ?Recorded ?Confirmed ketotifen fumarate 0.025 % (0.035 drp ophthalmic (eye) 10/24/21 12/04/23 %) eye drops fluticasone furoate 200 1 ea inhalation DAILY 06/03/23 12/04/23 mcg-vilanterol 25 mcg/dose inhalation powder (Breo Ellipta) Previous Rx's ?Medication ?Instructions ?Recorded cetirizine 10 mg tablet 10 mg PO DAILY #90 tabs 06/23/20 meclizine 25 mg tablet 25 mg PO TID PRN dizziness 30 days 09/03/21 #90 tabs arm brace (Wrist Brace Medium) #2 ea 04/16/22 diclofenac sodium 75 mg 75 mg PO BID #60 tabs 11/19/22 tablet,delayed release immun glob G 4 gram/20 mL (20 7,000 mg (35 mL) subcut QWEEK #80 07/29/23 %)-prol-IgA 0-50 mcg/mL mL subcutaneous syr (Hizentra) albuterol sulfate 90 mcg/actuation 2 puff inhalation Q6H PRN for 10/20/23 aerosol inhaler (Ventolin HFA) wheezing #18 ea umeclidinium 62.5 mcg/actuation 1 inh inhalation DAILY ASTHMA/COPD 10/20/23 blister powder for inhalation 30 days #30 ea (Incruse Ellipta) ipratropium 0.5 mg-albuterol 3 mg 3 ml inhalation QID wheezing #270 11/06/23 (2.5 mg base)/3 mL nebulization mL soln doxycycline hyclate 100 mg 100 mg PO BID #14 tabs 12/19/23 tablet,delayed release fluticasone furoate 200 1 inh inhalation DAILY ASTHMA/COPD 10/01/24 mcg-vilanterol 25 mcg/dose 30 days #60 ea inhalation powder (Breo Ellipta) ipratropium 0.5 mg-albuterol 3 mg 3 ml inhalation Q6-8H PRN 12/23/23 (2.5 mg base)/3 mL nebulization shortness of breath or wheezing soln #90 mL prednisone 20 mg tablet 40 mg (2 x 20 mg) PO DAILY 5 days 12/23/23 #10 tabs Allergies Allergy/AdvReac Type Severity Reaction Status Date / Time No Known Allergies Allergy Verified 12/23/23 09:34 Review of Systems Review of Systems: Coughing, body aches, chills, Yes all other systems are reviewed and are negative FOR[facility]LY [facility] Past Medical History Medical History Anxiety Lump of skin Chronic constipation Fibromyalgia SS-A antibody positive Blood D-dimer assay positive Chronic pain syndrome Multiple allergies Sacroiliitis Spondylosis without myelopathy or radiculopathy, cervical region Myofascial pain syndrome BARRON positive Depression Overweight (BMI 25.0-29.9) Asthma Neck pain Pure hypercholesterolemia Anemia Left lumbar radiculopathy Lumbar degenerative disc disease Primary osteoarthritis of hands, bilateral Surgical History Hx of colonoscopy History of esophagogastroduodenoscopy (EGD) History of total abdominal hysterectomy Family History Family History Father Myocardial infarction Stomach cancer Mother Myocardial infarction Osteoporosis Diabetes Brother HIV (human immunodeficiency virus infection) Sister In good health Social History Social History Housing: Apartment Alcohol intake: never Patient Tobacco Use Status: Never used Tobacco e-Cigarette/Vaping Use: Never Used Second Hand Smoke Exposure: No Advance Directives: No Do you have a plan to hurt others: No Plan service: No Current occupational status: retired and disabled Cognitive needs: No Hearing needs: No Vision needs: Yes Physical Exam ED Vital Signs: Vital Signs - 24 hr 12/23/23 09:33 12/23/23 12:00 12/23/23 13:14 Temperature 97.5 F 97.6 F 97.6 F Pulse Rate 54 56 56 Respiratory Rate 18 18 18 Blood Pressure 142/102 H 116/70 116/70 Pulse Oximetry 100 98 98 Oxygen Delivery Method Room Air Room Air BMI result Body Mass Index 28.3 Const General: cooperative, healthy appearing, comfortable, no acute distress, well developed, alert and awake Orientation/consciousness: patient oriented x3 [facility] Head: Yes normal to inspection, Yes No palpable skull fracture present, Yes normocephalic and Yes atraumatic Ears: hearing grossly normal bilaterally, external ears normal, TM's normal bilaterally, TM normal on the right, TM normal on the left, EAC's normal, mastoids normal and no periauricular adenopathy Throat: Yes posterior oropharynx normal, Yes tonsils normal and Yes uvula midline Eyes General: appearance normal, both eyes and all related structures Neck Neck: Yes normal visual inspection, Yes full ROM, Yes no lymphadenopathy, Yes no meningeal signs, Yes trachea midline, Yes supple, No anterior neck swelling and No tender Chest Chest palpation & inspection: normal inspection of the chest and normal palpation of entire chest wall Resp Effort & Inspection: normal respiratory effort and able to speak in complete sentences Auscultation: clear to auscultation bilaterally Cardio Jugular venous distension: no JVD Heart sounds: S1 normal heart sound present and S2 normal heart sound present GI Inspection: Yes normal to inspection Palpation (GI): Soft to palpation, not firm, nontender, no guarding and not rigid General: No CVA tenderness and Yes no CVA tenderness Back/Spine/Pelvis Back: no CVA tenderness, No CVA tenderness and No back tenderness Skin General skin exam: no rashes or lesions noted, elasticity normal and turgor normal Neuro General: patient oriented x3, gait normal, tone normal, moves all extremities, Normal light touch and pain sensation, no meningeal signs, no focal motor deficits, CN's II-XI intact bilaterally and normal sensation to monofilament Extrem General: Yes normal to inspection, Yes full ROM and Yes capillary refill normal Psych Appearance: grossly normal, well kempt and not disheveled Medical Decision Making Medical Decision Making MDM Narrative: 50-year-old female history of asthma COPD presents to ED for 3 weeks of coughing, body aches, chills, weakness, chest pain only when she coughs. Patient positive for COVID. Chest x-ray normal. Patient's vital signs are stable. Not suspecting respiratory distress, hypoxia, PE, myocardial infarction, CHF, or pulmonary edema. Patient explained due to history asthma COPD there is a risk of long haul COPD. Patient informed to follow-up with her primary care and automatic fabric cutter for re-evaluation. Patient explained worrisome signs and informed to return to the ED immediately Differential Diagnosis Differential Diagnoses: The differential diagnosis associated with the presentation includes (COVID, SARS, influenza, pneumonia) Admission/Observation Consideration of admission/observation: Escalation of care including admission/observation considered Lab Data MDM Lab Attestation statement: I reviewed the patient's lab results. Labs: Lab Results 12/23/23 Range/Units 09:47 Influenza Type A (PCR) NEGATIVE (Negative) Influenza Type B (PCR) NEGATIVE (Negative) RSV RNA Qual (PCR) NEGATIVE (Negative) SARS-CoV-2 RNA (RT-PCR) POSITIVE A (Negative) Independent Interpretation I performed an independent interpretation of an: Plain X-Ray Radiology Impression Discussion of test interpretation with radiology: I have reviewed the radiologist's reading. Independent Historian Clinical information obtained from an independent historian. History obtained from or confirmed by: Other (Patient) External Record Review External record reviewed: Other (Prior visits) Prescription Management I considered prescription management with: Other (Steroid) Discharge Plan Discharge Clinical Impression: COVID-19, Asthma Patient Disposition: Home, Self-Care Instructions: Asthma (ED), COVID-19 (Coronavirus Disease 2019) (ED) Additional Instructions: Recommend follow-up with primary care provider. Also recommend follow up with automatic fabric cutter. Return to the ED immediately for any chest pain, shortness of breath, coughing up blood, leg swelling, calf pain, chest pain on inspiration, or any other concerning symptoms. Your automatic fabric cutter may need to reorder inhaled steroid pump if no improvement. Prescriptions: New prednisone 20 mg tablet 40 mg PO DAILY 5 Days Qty: 10 0RF ipratropium-albuterol 0.5 mg-3 mg(2.5 mg base)/3 mL solution for nebulization 3 ml inhalation Q6-8H PRN (Reason: shortness of breath or wheezing) Qty: 90 0RF No Action cetirizine 10 mg tablet 10 mg PO DAILY Qty: 90 1RF Hizentra 4 gram/20 mL (20 %) syringe 7,000 mg subcut QWEEK Qty: 80 12RF Rx Instructions: please provide related supplies doxycycline hyclate 100 mg tablet,delayed release (DR/EC) 100 mg PO BID Qty: 14 0RF fluticasone furoate-vilanterol [Breo Ellipta] 200-25 mcg/dose blister with device 1 inh inhalation DAILY 30 Days Qty: 60 6RF meclizine 25 mg tablet 25 mg PO TID PRN (Reason: dizziness) 30 Days Qty: 90 1RF fluticasone furoate-vilanterol [Breo Ellipta] 200-25 mcg/dose blister with device 1 ea inhalation DAILY (DME) Wrist Brace Medium Misc See Rx Instructions .Route Qty: 2 0RF Rx Instructions: use nightly ketotifen fumarate 0.025 % (0.035 %) drops ophthalmic (eye) diclofenac sodium 75 mg tablet,delayed release (DR/EC) 75 mg PO BID Qty: 60 2RF Rx Instructions: take with food ipratropium-albuterol 0.5 mg-3 mg(2.5 mg base)/3 mL solution for nebulization 3 ml inhalation QID Qty: 270 4RF Incruse Ellipta 62.5 mcg/actuation blister with device 1 inh inhalation DAILY 30 Days Qty: 30 1RF albuterol sulfate [Ventolin HFA] 90 mcg/actuation HFA aerosol inhaler 2 puff inhalation Q6H PRN (Reason: for wheezing) Qty: 18 4RF Stand Alone Forms: Work/School Release Interventions: ED Discharge Assessment Last Done: 12/23/23 13:14 Discharge Date/Time: 12/23/23 13:16 Print Language: Upper Sorbian
[2023-12-23 12:00] VITALS: BP 116/70; PULSE 56; RESP 18; TEMP 36.4; O2SAT 98
[2023-12-23 13:14] VITALS: BP 116/70; PULSE 56; RESP 18; TEMP 36.4; O2SAT 98
== END 2023-12-23 13:16 | disposition home or self-care (01) ==
PROVIDERS: Emergency Provider Emergency Medicine; PCP Internal Medicine
DX: U07.1 COVID-19 (principal); J45.909 Unspecified asthma, uncomplicated; Z79.899 Other long term (current) drug therapy
CPT/HCPCS: 0241U; 71046; 99282; 99283

== ENCOUNTER 2023-12-31 14:39 | Outpatient (AMB) | payer OTHER, SELFPAY ==
--- NOTE | 2023-12-31 14:40 | A.OFFVIS_ITS ---
Vital Signs 12/31/23 14:41 Height 5 ft 1 in Weight 148 lb BMI 28.0 BP 102/57 L Blood Pressure Location Rt brachial Position Sitting Pulse 62 Pulse Source Doppler Pulse Oximetry (%) 99 Oxygen Delivery Method Room Air Intake Visit Reasons: post-covid Allergies No Known Allergies Allergy (Verified 12/23/23 09:34) HPI HPI post-covid: Details: 58-year-old lady, nonsmoker, followed for underlying severe persistent allergic asthma, pulmonary nodules, and severe IgA deficiency. Her SS/Ro antibody is positive.?She was tried on Fasenra with no significant response.? She continues on Hizentra with baseline significantly improved control of her underlying recurrent mucopurulent bronchitis.? Patient recently had COVID-19 related exacerbation that is slowly getting better. She has ran out of her Breo and albuterol MDI and her symptomatic control has somewhat worsened. Patient is pending 2nd opinion at [facility]. [facility] Medical History Anxiety Lump of skin Chronic constipation Fibromyalgia SS-A antibody positive Blood D-dimer assay positive Chronic pain syndrome Multiple allergies Sacroiliitis Spondylosis without myelopathy or radiculopathy, cervical region Myofascial pain syndrome BARRON positive Depression Overweight (BMI 25.0-29.9) Asthma Neck pain Pure hypercholesterolemia Anemia Left lumbar radiculopathy Lumbar degenerative disc disease Primary osteoarthritis of hands, bilateral Surgical History Hx of colonoscopy History of esophagogastroduodenoscopy (EGD) History of total abdominal hysterectomy Family History Father Myocardial infarction Stomach cancer Mother Myocardial infarction Osteoporosis Diabetes Brother HIV (human immunodeficiency virus infection) Sister In good health Social History Housing: Apartment Alcohol intake: never Patient Tobacco Use Status: Never used Tobacco e-Cigarette/Vaping Use: Never Used Second Hand Smoke Exposure: No service: No Current occupational status: retired and disabled Cognitive needs: No Hearing needs: No Vision needs: Yes Review of Systems Card Reports dyspnea on exertion Resp Denies cough, Denies excessive phlegm production, Reports dyspnea on exertion and Denies wheezing Aller/Immun Denies wheezing Physical Exam Vital Signs: Last Vital Signs Pulse 62 12/31/23 14:41 BP 102/57 L 12/31/23 14:41 Pulse Ox 99 12/31/23 14:41 Oxygen Delivery Method Room Air 12/31/23 14:41 BMI result Body Mass Index 28.0 Const General: no acute distress and alert Nutritional Appearance: not obese Orientation/consciousness: Other orientation findings ( oriented) HEENT Head: Yes atraumatic Eyes General: appearance normal, both eyes and all related structures Sclerae: sclerae normal EOM: EOMs intact bilaterally Neck Neck: Yes supple Lymphatic: no lymphadenopathy noted Resp Effort & Inspection: normal respiratory effort and no use of accessory muscles Auscultation: clear to auscultation bilaterally Cardio Rate: regular rate Rhythm: regular rhythm Heart sounds: no gallops, no murmurs and no rubs Skin General skin exam: other ( warm) Extrem General: No clubbing, No cyanosis and No edema Assessment & Plan Assessment & Plan (1) IgA deficiency, selective: Comment: Code(s): D80.2 - Selective deficiency of immunoglobulin A [IgA] Category: Medical Plan: Recurrent upper respiratory infections improved with Hizentra. Continue current therapy. (2) Asthma: Code(s): J45.909 - Unspecified asthma, uncomplicated Category: Medical Qualifiers: Asthma severity: severe Asthma persistence: persistent Asthma complication type: with acute exacerbation Qualified Code(s): J45.51 - Severe persistent asthma with (acute) exacerbation Plan: Worsening symptoms after recent COVID-19 and with ran out of Breo/albuterol MDI. Restart Breo and albuterol MDI. Continue duo nebs. Medications: Refilled albuterol sulfate 90 mcg/actuation (Ventolin HFA) 2 puffs inhalation Q6H PRN 1 ea 4RF for wheezing J45.40 - Moderate persistent asthma, uncomplicated fluticasone furoate-vilanterol 200-25 mcg/dose (Breo Ellipta) 1 inh inhalation DAILY 60 ea 6RF ASTHMA/COPD 30 days Coding Level of Care Code Est Pt Level 4 (62534) Complex EM visit Add On G2211 Diagnoses IgA deficiency, selective D80.2 Severe persistent asthma with acute exacerbation J45.51 Asthma severity: severe Asthma persistence: persistent Asthma complication type: with acute exacerbation
[2023-12-31 14:41] VITALS: BP 102/57; PULSE 62; O2SAT 99; BMI 28.0
== END 2023-12-31 15:25 | disposition home or self-care (01) ==
PROVIDERS: PCP Internal Medicine; Visit Provider Internal Medicine Pulmonary Disease
DX: D80.2 Selective deficiency of immunoglobulin A [IgA] (principal); J45.51 Severe persistent asthma with (acute) exacerbation
CPT/HCPCS: 99214; G2211

== ENCOUNTER → 2023-12-31 14:39 | Outpatient (BNVA) | payer OTHER, SELFPAY | PROVIDERS: PCP Internal Medicine; Visit Provider Internal Medicine Pulmonary Disease | DX: J45.51 Severe persistent asthma with (acute) exacerbation (principal); D80.2 Selective deficiency of immunoglobulin A [IgA]; R91.8 Other nonspecific abnormal finding of lung field | CPT/HCPCS: 99212 ==

== ENCOUNTER 2024-01-30 13:07 | Outpatient (REF) | payer OTHER, SELFPAY | END 2024-01-30 13:08 | disposition home or self-care (01) | LOC: HO.CT 13:07 | PROVIDERS: PCP Internal Medicine; Visit Provider Internal Medicine Pulmonary Disease | DX: J41.1 Mucopurulent chronic bronchitis (principal) | CPT/HCPCS: 71250 ==

== ENCOUNTER → 2024-01-30 13:10 | Outpatient (BNV) | payer OTHER, SELFPAY | PROVIDERS: PCP Internal Medicine; Visit Provider Radiology Diagnostic Radiology | DX: J41.1 Mucopurulent chronic bronchitis (principal) | CPT/HCPCS: 71250 ==

== ENCOUNTER 2024-02-24 12:58 | Outpatient (AMB) | payer OTHER, SELFPAY ==
--- NOTE | 2024-02-24 13:01 | A.OFFVIS_ITS ---
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: No Accompanied by: Self / Same As Patient Allergies No Known Allergies Allergy (Verified 12/23/23 09:34) Medication List - Last Reconciled 02/24/24 by Ki Hinkle MD albuterol sulfate 90 mcg/actuation (Ventolin HFA) 2 puffs inhalation Q6H PRN arm brace (Wrist Brace Medium) use nightly cetirizine 10 mg PO DAILY diclofenac sodium 75 mg PO BID doxycycline hyclate 100 mg PO BID fluticasone furoate-vilanterol 200-25 mcg/dose (Breo Ellipta) 1 inh inhalation DAILY 30 days immun glob G(IgG)-pro-IgA 0-50 4 gram/20 mL (20 %) (Hizentra) 7,000 mg (35 mL) subcut QWEEK ketotifen fumarate 0.025%(0.035%) drps ophthalmic (eye) meclizine 25 mg PO TID PRN 30 days umeclidinium 62.5 mcg/actuation (Incruse Ellipta) 1 inh inhalation DAILY 30 days HPI Comments Details: Candida is here for consultation regarding shortness of breath. She states that she has had shortness of breath in the past but more so in the last few months. The description is that mainly this happens when she is trying to lie down. As soon as she lies back, she can feel short of breath. She has sleeps with 2-3 pillows. Does not have any history of coronary disease or myocardial infarction or cardiomyopathy or congestive heart failure or anything else along those lines. Known to have asthma for a long time. With regard to the shortness of breath itself, more so with trying to lie down as opposed to exertion. Also no clear exertional angina. [facility] Medical History Anxiety Lump of skin Chronic constipation Fibromyalgia SS-A antibody positive Blood D-dimer assay positive Chronic pain syndrome Multiple allergies Sacroiliitis Spondylosis without myelopathy or radiculopathy, cervical region Myofascial pain syndrome BARRON positive Depression Overweight (BMI 25.0-29.9) Asthma Neck pain Pure hypercholesterolemia Anemia Left lumbar radiculopathy Lumbar degenerative disc disease Primary osteoarthritis of hands, bilateral Surgical History Hx of colonoscopy History of esophagogastroduodenoscopy (EGD) History of total abdominal hysterectomy Family History Father Myocardial infarction Stomach cancer Mother Myocardial infarction Osteoporosis Diabetes Brother HIV (human immunodeficiency virus infection) Sister In good health Social History Housing: Apartment Alcohol intake: never Patient Tobacco Use Status: Never used Tobacco e-Cigarette/Vaping Use: Never Used Second Hand Smoke Exposure: No service: No Current occupational status: retired and disabled Cognitive needs: No Hearing needs: No Vision needs: Yes Review of Systems Const Denies chills, Denies fatigue, Denies fever(s), Denies frequent falls, Denies weakness, Denies weight gain and Denies weight loss ENT Denies dizziness Card Denies chest pain, Denies leg edema, Denies lightheadedness, Denies palpitations, Reports dyspnea, Reports dyspnea on exertion and Reports orthopnea Resp Denies cough, Reports dyspnea and Reports dyspnea on exertion GI Denies bloating and Denies change in bowel habits Musc Denies muscle weakness, Denies numbness and Denies tingling Neuro Denies dizziness, Denies frequent falls, Denies numbness, Denies tingling and Denies weakness Endo Denies fatigue and Denies palpitations Physical Exam Vital Signs: Last Vital Signs Pulse 64 02/24/24 13:02 BP 120/62 02/24/24 13:02 BMI result Body Mass Index 28.0 Const General: comfortable and no acute distress Orientation/consciousness: patient oriented x3 HEENT Other: Unremarkable Head: Yes normal to inspection Neck Neck: Yes normal visual inspection Chest Chest palpation & inspection: normal inspection of the chest Resp Auscultation: clear to auscultation bilaterally Cardio Palpation: normal PMI Heart sounds: S1 normal heart sound present, S2 normal heart sound present, no gallops, no murmurs and no rubs GI Palpation (GI): Soft to palpation Back/Spine/Pelvis Other: unremarkable Skin General skin exam: no rashes or lesions noted Neuro General: patient oriented x3 Extrem General: Yes normal to inspection Psych Mental Status: mental status grossly normal Office Procedures EKG Details: EKG with underlying sinus rhythm at 64/Min; short TX interval; no significant ST-T changes; [place]. [id number], Complete Assessment & Plan Assessment & Plan (1) SOB (shortness of breath): Code(s): R06.02 - Shortness of breath Category: Medical Plan Recent chest x-ray unremarkable. CT chest completed, but report is still pending. Symptoms are atypical for cardiac and she does not have any clear-cut symptoms or signs of congestive heart failure. There is no evidence of diaphragmatic paralysis on chest x-ray either. We will obtain echocardiogram for further evaluation. Home sleep study. We will follow-up on the CT chest resolved. Follow-up in few months. Orders: Orders CA echo transthoracic complete Today R06.02 - Shortness of breath RT home sleep study Today G47.33 - Obstructive sleep apnea (adult) (pediatric) Coding Level of Care Code New Pt Level 3 (51845) Diagnoses SOB (shortness of breath) R06.02 CPT Codes EKG - CPT: 37894-[id number], Complete ([id number])
[2024-02-24 13:02] VITALS: BP 120/62; PULSE 64; BMI 28.0
== END 2024-02-24 13:24 | disposition home or self-care (01) ==
PROVIDERS: PCP Internal Medicine; Visit Provider Internal Medicine
DX: R06.02 Shortness of breath (principal)
CPT/HCPCS: 93010; 99203

== ENCOUNTER → 2024-02-24 12:58 | Outpatient (BNVA) | payer OTHER, SELFPAY | PROVIDERS: PCP Internal Medicine; Visit Provider Internal Medicine | DX: R06.02 Shortness of breath (principal); G47.33 Obstructive sleep apnea (adult) (pediatric) | CPT/HCPCS: 93005; 99202 ==

== ENCOUNTER → 2024-04-02 09:57 | Outpatient (REF) | payer OTHER, SELFPAY ==
--- NOTE | 2024-04-02 10:00 | CA_ITS ---
Transthoracic Echocardiogram Patient (Last, First, Middle): Candida Massey, Gender: Female Date of : 1965 Age: 58 Procedure Date: 04/02/2024 Procedure Type: Transthoracic Echocardiogram Location: OP Height: 154.94 cm Weight: 67.13 kg BSA: 1.66 m2 Heart Rate: bpm BP: 90 / 60 mmHg Medical Office Asst: TO Referring MD: Ki Hinkle MD Symptoms: R06.02 - Shortness of breath Study Quality: Fair ECG Rhythm: Sinus Conclusions: - The left ventricular systolic function is normal. The calculated ejection fraction is 56% by biplane method. - No obvious valvular pathology seen on this study. Findings Procedure Information The study quality is limited by the patients inability to tolerate the test. Left Ventricle Normal left ventricular cavity size. There is normal left ventricular wall thickness. The left ventricular systolic function is normal. The calculated ejection fraction is 56% by biplane method. There is no evidence of regional wall motion abnormalities. Diastolic function is normal for age. Right Ventricle Mildly increased right ventricular cavity size. There is normal right ventricular systolic function. Atria The left atrium is mildly dilated. The right atrium is normal in size. Aortic Valve There is a normal trileaflet aortic valve. There is no aortic valve stenosis. There is no aortic valve regurgitation. Mitral Valve The mitral valve appears normal. There is no mitral valve regurgitation. There is no mitral valve stenosis. Pulmonic Valve The pulmonic valve is likely normal. Tricuspid Valve There is no tricuspid valve regurgitation. Tricuspid regurgitation envelope is inadequate for calculation of right ventricular systolic pressure. Great Vessels The asc aorta and aortic arch are normal in size. Small plaque is seen in the sino tubular ridge. Venous The inferior vena cava is normal in size and collapses greater than 50% with inspiration. Pericardium/Pleural There is no evidence of pericardial effusion. Prior Study Comparison No significant change compared to prior study dated: 06/10/2018. Recommendations, Care & Conclusions No obvious valvular pathology seen on this study. Measurements 2D Linear Measurements IVSd: 0.98 0.6-0.9/0.6-1.0 cm LVIDd: 4.56 3.9-5.3/4.2-5.9 cm LVIDd Index: 2.75 2.4-3.2/2.2-3.1 cm/m2 LVIDs: 2.79 2.0-3.6 cm LVPWd: 0.87 0.7-1.1 cm LA Diam: 3.40 2.7-3.8/3.0-4.0 cm LAIDs Index: 2.05 1.5-2.3 cm/m2 LV Mass: 175.17 67-162/88-224 g LV Mass Index: 105.52 43-95/49-115 g/m2 LVOT Diam: 2.20 3.0+(-)1.3 cm 2D Systolic Function EF 4C: 55.20 >55% EF 2C: 55.40 >55% EF BiP: 55.80 >55% Mitral Valve MV Pk E: 0.63 MV PK A: 0.44 MV Decel Time: 200.00 E/A: 1.50 E'Lateral: 10.10 E'Medial: 8.92 E/E' Med: 7.10 E/E' Lat: 6.30 PHT: 59.00 MVA PHT: 3.73 Decel [place]: 3.17 Aortic Valve AoV Pk Tani: 1.46 AoV Mn Tani: 0.93 AoV VTI: 0.30 AoV Pk Grad: 9.00 Aov Mn Grad: 4.00 FARTUN Cont.VTI: 2.65 LVOT LVOT Pk Tani: 1.00 LVOT Mn Tani: 0.61 LVOT VTI: 0.21 LVOT Pk Grad: 4.00 LVOT Mn Grad: 2.00 LVOT Diam: 2.20 LVOT Area: 3.80 Diastolic Function MV Pk E: 0.63 MV Pk A: 0.44 E/A: 1.50 E'Medial: 8.92 E/E' Med: 7.10 E' Laterial: 10.10 E/E' Lat: 6.30 Right Ventricle TAPSE (mm): 22.20 TVS' Tani: 12.10 Great Vessels Aorta Sinus of Valsalva: 3.61 2.0-3.5 cm Ao Asc: 3.40 2.1-3.4 cm Ao Arch: 3.00 Updated in Other Vendor System with Status of Final Ki Hinkle MD electronically signed on 04/04/2024 11:05:49 AM with status of Final
== END ==
LOC: HO.CARD 09:57
PROVIDERS: PCP Internal Medicine; Visit Provider Internal Medicine
DX: R06.02 Shortness of breath (principal)
CPT/HCPCS: 93306

== ENCOUNTER → 2024-04-02 10:00 | Outpatient (BNV) | payer OTHER, SELFPAY | PROVIDERS: PCP Internal Medicine; Visit Provider Internal Medicine | DX: R06.02 Shortness of breath (principal) | CPT/HCPCS: 93306 ==

== ENCOUNTER 2024-04-09 08:44 | Outpatient (AMB) | payer OTHER, SELFPAY ==
[2024-04-09 08:45] VITALS: BP 106/62; PULSE 61; O2SAT 97; BMI 27.8
--- NOTE | 2024-04-09 08:45 | MHC.PC.OV ---
Vital Signs 04/09/24 08:45 Height 5 ft 1 in Weight 147 lb BMI 27.8 BP 106/62 Blood Pressure Location Lt brachial Position Sitting Pulse 61 Pulse Source Pulse Oximeter Pulse Oximetry (%) 97 Oxygen Delivery Method Room Air Intake Visit Reasons: 4 month f/u Intake Note: Patient states that she has been dealing with SOB. She feels as if she gets upset, she can not catch her breath. Allergies No Known Allergies Allergy (Verified 04/09/24 09:28) Medication List - Last Reconciled 04/09/24 by Charlie Brock MD albuterol sulfate 90 mcg/actuation (Ventolin HFA) 2 puffs inhalation Q6H PRN arm brace (Wrist Brace Medium) use nightly cetirizine 10 mg PO DAILY diclofenac sodium 75 mg PO BID fluticasone furoate-vilanterol 200-25 mcg/dose (Breo Ellipta) 1 inh inhalation DAILY 30 days immun glob G(IgG)-pro-IgA 0-50 1 gram/5 mL (20 %) (Hizentra) 7,000 mg (35 mL) subcut QWEEK ketotifen fumarate 0.025%(0.035%) drps ophthalmic (eye) meclizine 25 mg PO TID PRN 30 days umeclidinium 62.5 mcg/actuation (Incruse Ellipta) 1 inh inhalation DAILY 30 days Tobacco use date assessed: 04/09/24 Dental Screening Dental Screen Date: 04/09/24 Did you have a dental visit in the last 12 months?: Yes Did you have a dental problem in the last 6 months where you did not have access to dental care?: No Was dental information given to patient?: Patient has dentist HPI 4 month f/u HPI Details Patient comes in today for her follow up visit States that she continues to experience recurrent chest tightness and SOB and frequent chest congestion despite her current Rx She was sent by Dr. Hayes to Dr. Rider at [facility] for a second opinion regarding her persistent symptoms and is currently being sent for additional workups for further evaluation She recently underwent further evaluation here at [facility] for her recurrent dyspnea, including echocardiogram, which was normal and ruled out any potential cardiac etiologies for her symptoms Chest CT revealed (+) minimal bibasilar bronchiectasis without wall thickening or mucosal debris. Minimal atelectatic changes were seen in the dependent lung bases as well She has also been experiencing recurrent left upper extremity pain with intermittent sensations resembling electric shocks, which patient states started a few months ago, suggestive of carpal tunnel syndrome or cervical radiculopathy She did have nerve conduction studies done about 5 years ago which came out normal Despite all these, she remains concerned that she may be coming down with a pneumonia and would like to have some additional tests done for further evaluation She denies any fever or sore throat; denies any headaches or dizziness Denies any chest pains No nausea/vomiting, no abdominal pain No change in bowel habits noted [facility] Medical History (Updated 04/11/24 @ 15:59 by Charlie Brock MD) Multiple allergies Lumbar degenerative disc disease Pure hypercholesterolemia Anxiety Lump of skin Chronic constipation Fibromyalgia SS-A antibody positive Blood D-dimer assay positive Chronic pain syndrome Sacroiliitis Spondylosis without myelopathy or radiculopathy, cervical region Myofascial pain syndrome BARRON positive Depression Overweight (BMI 25.0-29.9) Asthma Neck pain Anemia Left lumbar radiculopathy Primary osteoarthritis of hands, bilateral Surgical History Hx of colonoscopy History of esophagogastroduodenoscopy (EGD) History of total abdominal hysterectomy Family History Father Myocardial infarction Stomach cancer Mother Myocardial infarction Osteoporosis Diabetes Brother HIV (human immunodeficiency virus infection) Sister In good health Social History Housing: Apartment Alcohol intake: never Patient Tobacco Use Status: Never used Tobacco Tobacco use type: Cigarette e-Cigarette/Vaping Use: Never Used Second Hand Smoke Exposure: No service: No Current occupational status: retired and disabled Cognitive needs: No Hearing needs: No Vision needs: Yes Questionnaire PHQ-9 Over the last 2 weeks, how often have you been bothered by any of the following problems? 1. Little interest or pleasure in doing things: not at all 2. Feeling down, depressed, or hopeless: not at all 3. Trouble falling or staying asleep, or sleeping too much: not at all 4. Feeling tired or having little energy: not at all 5. Poor appetite or overeating: not at all 6. Feeling bad about yourself - or that you are a failure or have let yourself or your family down: not at all 7. Trouble concentrating on things, such as reading the newspaper or watching television: not at all 8. Moving or speaking so slowly that other people could have noticed. Or the opposite - being so fidgety or restless that you have been moving around a lot more than usual: not at all 9. Thoughts that you would be better off or of hurting yourself in some way: not at all Total score: 0 Depression Screening Interpretation: Negative (is seeing therapist/psychiatrist) Depression Screening Done: Yes 03781 - PHQ-9 Billing: Yes Source: Developed by Drs. Florian Cr, Keyla Taveras, Bautista Dominique and colleagues, with an educational luz maria from [employer]. Thrive Questionnaire Date Thrive assessed: 04/09/24 I am a: Patient What is your living situation today?: I have a steady place to live Within the past 12 months, did the food you bought not last and you didn't have the money to get more?: Never true Within the past 12 months, did you worry whether your food would run out before you got money to buy more?: Never true Do you have trouble paying for medicines?: No Do you have trouble getting transportation to medical appointments?: No Do you have trouble paying your heating and electricity bill?: No Do you have trouble taking care of your child, family member or friend?: No Do you have trouble with day-to-day activities such as bathing, preparing meals, shopping, managing finances, etc.?: No Are you currently unemployed and looking for a job?: No Are you interested in more education?: No Please select the resources that you would like help with: None Currently or been in a relationship where the following occur: No concerns reported THRIVE Score: 0 AUDIT C Alcohol Use Questionnaire (AUDIT-C) 1. How often do you have a drink containing alcohol?: Monthly or less 2. How many drinks containing alcohol do you have on a typical day when you are drinking?: 1 or 2 3. How often do you have six or more drinks on one occasion?: Never Total Score: 1 Score Reviewed/Action Taken: Yes OPHELIA-7 AMB Questionnaire OPHELIA-7 Date OPHELIA - 7 assessed: 04/09/24 Feeling nervous, anxious, or on edge: 0 = Not at all Not being able to stop or control worryin = Not at all Worrying too much about different things: 0 = Not at all Trouble relaxin = Not at all Being so restless that it is hard to sit still: 0 = Not at all Becoming easily annoyed or irritable: 0 = Not at all Feeling afraid as if something awful might happen: 0 = Not at all Total OPHELIA-7 score (0-4 normal; 5-9 mild; 10-14 moderate; 15-21 severe): 0 Source: Developed by Drs. Florian Cr, Keyla Taveras, Bautista Dominique and colleagues, with an educational luz maria from [employer]. Review of Systems Const Denies chills, Reports fatigue, Denies fever(s) and Denies headache(s) ENT Denies dysphagia, Denies dizziness, Denies otalgia, Denies headache(s), Reports neck pain, Denies odynophagia and Denies sore throat Card Denies chest pain, Denies palpitations, Reports dyspnea on exertion and Reports orthopnea (lately) Resp Reports chest congestion (recurrent - chest feels tight often), Reports cough (on and off, with scanty thick whitish phlegm at times), Denies hemoptysis, Reports dyspnea on exertion and Denies wheezing GI Denies abdominal pain, Denies constipation, Denies dysphagia, Denies diarrhea, Denies nausea, Denies odynophagia and Denies vomiting Denies difficulty voiding, Denies nocturia, Denies dysuria and Denies urinary urgency Musc Reports back pain (over the lower back), Reports arthralgias (involving multiple joints, including the hands/fingers), Reports neck pain and Reports tingling (on and off in the left upper extremity) Skin/Breast Denies rash Neuro Denies dizziness, Denies headache(s) and Reports tingling (on and off in the left upper extremity) Endo Reports fatigue and Denies palpitations Aller/Immun Denies wheezing Physical exam (Primary Care) Vital Signs: Last Vital Signs Pulse 61 04/09/24 08:45 BP 106/62 04/09/24 08:45 Pulse Ox 97 04/09/24 08:45 Oxygen Delivery Method Room Air 04/09/24 08:45 BMI result Body Mass Index 27.8 Tobacco/Smoking Status: Tobacco use Status Tobacco use date assessed 04/09/24 04/09/24 08:50 Patient Tobacco Use Status Never used Tobacco 04/09/24 08:50 Tobacco use type Cigarette 04/09/24 08:50 e-Cigarette/Vaping Use Never Used 04/09/24 08:50 PHQ-9: PHQ-9 Score PHQ-9: Total score 0 04/09/24 09:41 Depression Screening Interpretation: Negative (is seeing therapist/psychiatrist) Thrive Assessment: Date of Thrive Assessment Date Thrive assessed 04/09/24 04/09/24 08:50 Currently or been in a relationship where the following occur: No concerns reported Const General: no acute distress and alert HENMT Ears: TM's normal bilaterally and EAC's normal Throat: Yes posterior oropharynx normal and Yes tonsils normal (no TP congestion noted) Neck Neck: Yes supple and No lymphadenopathy Thyroid: Thyroid normal Resp Auscultation: no rales, rhonchi (occasional) throughout, no wheezes and diminished lung sounds (slightly) bilateral Cardio Rate: regular rate Rhythm: regular rhythm Heart sounds: no murmurs GI Palpation (GI): Soft to palpation and nontender Auscultation: normal bowel sounds General: Yes no CVA tenderness Back/Spine/Pelvis Back: no CVA tenderness Cervical Spine: No Cervical spine tenderness Thoracic/Lumbar Spine: lumbar spinal tenderness (mild) Skin Rashes: no rashes Extrem Other: (+) prominent varicose veins over both lower extremities; no thrombosis noted General: Yes no clubbing, cyanosis or edema Left upper extremity: shoulder/upper arm Details: tenderness (over the anterior AC joint as well as over the muscles of the upper arm), elbow/forearm Details: tenderness (mild) Location: of the lateral epicondyle and wrist (no tenderness noted on exam; Tinel's and Phalen's signs are negative) Coding Level of Care Code Est Pt Level 4 (10696) Diagnoses Bronchitis, mucopurulent recurrent J41.1 Pure hypercholesterolemia E78.00 IgA deficiency, selective D80.2 Multiple allergies Z88.9 Anemia, unspecified type D64.9 Anemia type: unspecified type Varicose veins of bilateral lower extremities with other complications I83.893 Varicose vein complication: other Degeneration of intervertebral disc of lumbar region with discogenic back pain M51.360 Disc-related pain type: discogenic back pain only Spondylosis without myelopathy or radiculopathy, cervical region M47.812 Radicular pain in left arm M79.2 Primary osteoarthritis of both hands M19.041; M19.042 Osteoarthritis type: primary Chronic constipation K59.09 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 Episode of recurrent major depressive disorder, unspecified depression episode severity F33.9 Depression Type: major depressive disorder Major depression recurrence: recurrent Active/Remission status: currently active Major depression episode severity: unspecified Overweight (BMI 25.0-29.9) E66.3 Additional Codes PHQ-9 - 03256 - PHQ-9 Billing: Yes ([id number]) Assessment & Plan Assessment & Plan (1) Bronchitis, mucopurulent recurrent: Code(s): J41.1 - Mucopurulent chronic bronchitis Category: Medical Plan: Her respiratory symptoms appears better controlled lately on Hizentra infusions although patient is not entirely convinced about this as she feels that her symptoms are still active and not adequately controlled Continue Breo Ellipta 200-25 mcg 1 inhalation QD, Incruse Ellipta 62.5 mcg 1 inhalation QD and Albuterol HFA 2 inhalations Q 6 hours PRN She also uses Duoneb via nebulizer 4 times a day as needed and Tobramycin was added to this by pulmonary recently, to add to her nebulizer solution for 28 days on and then 28 days off alternately Follow up with pulmonary as scheduled She has also been referred to Dr. Rider at [facility] for a second opinion and is currently still undergoing further evaluation and follow up with them (2) Pure hypercholesterolemia: Code(s): E78.00 - Pure hypercholesterolemia, unspecified Category: Medical Plan: Reinforced low cholesterol diet Patient has indicated that she continues to prefer to avoid taking cholesterol-lowering Rx as much as possible Will recheck her labs and fasting lipids JAYLENE for follow up (3) IgA deficiency, selective: Comment: Code(s): D80.2 - Selective deficiency of immunoglobulin A [IgA] Category: Medical Plan: She has been seeing and following up with allergy & immunology in the past but we have not received any correspondence from them since June 2021 She is currently on IV Ig Tx with Hizentra 7000 mg weekly and appears to be doing well - to continue on Hizentra for now under supervision of pulmonary at [facility] (4) Multiple allergies: Code(s): Z88.9 - Allergy status to unspecified drugs, medicaments and biological substances Category: Medical Plan: Continue Cetirizine 10 mg QD PRN Follow up with pipelines supervisor as scheduled (5) Anemia: Code(s): D64.9 - Anemia, unspecified Category: Medical Qualifiers: Anemia type: unspecified type Qualified Code(s): D64.9 - Anemia, unspecified Plan: Her H/H were at 11.2 and 34.8 when last checked in June 2023 Will recheck her CBC JAYLENE and continue to monitor her CBC regularly (6) Varicose veins of both lower extremities: Code(s): I83.93 - Asymptomatic varicose veins of bilateral lower extremities Category: Medical Qualifiers: Varicose vein complication: other Qualified Code(s): I83.893 - Varicose veins of bilateral lower extremities with other complications Plan: Follow up with vascular surgery as scheduled (7) Lumbar degenerative disc disease: Code(s): M51.36 - Other intervertebral disc degeneration, lumbar region Category: Medical Qualifiers: Disc-related pain type: discogenic back pain only Qualified Code(s): M51.360 - Other intervertebral disc degeneration, lumbar region with discogenic back pain only Plan: X-rays of the lumbar spine done back in October 2019 revealed progressive 1 cm grade 2 anterolisthesis of L5 on S1 in the setting of suspected L5 pars defect Reinforced activity and weight-lifting restrictions to avoid aggravating her lower back symptoms Continue Tramadol 50 mg 2 tablets at a time up to 4 times a day as needed Follow up with pain management as scheduled - states that her low back pain has improved a lot with injection Tx in the past and it has not been bothering her lately (8) Spondylosis without myelopathy or radiculopathy, cervical region: Code(s): M47.812 - Spondylosis without myelopathy or radiculopathy, cervical region Category: Medical Plan: She has been receiving injections into her cervical spine and trapezius muscles from pain management; notes that her neck pain has been stable lately Follow up with [facility] Pain Management as scheduled (9) Radicular pain in left arm: Code(s): M79.2 - Neuralgia and neuritis, unspecified Category: Medical Plan: Patient also appears to have tenderness on palpation over the upper arm, including both muscles and the long bone - unclear at this time as to the etiology of her symptoms Will send patient for x-rays of the left shoulder, left elbow and left wrist for further evaluation Discussed that if her imaging studies all come back normal, will then consider repeating EMG and NCV for additional workups (10) Osteoarthritis of hands, bilateral: Code(s): M19.041 - Primary osteoarthritis, right hand; M19.042 - Primary osteoarthritis, left hand Category: Medical Qualifiers: Osteoarthritis type: primary Qualified Code(s): M19.041 - Primary osteoarthritis, right hand; M19.042 - Primary osteoarthritis, left hand Plan: X-rays of both hands done in the past showed mild OA changes of the DIP joints Tests done in the past only showed (+) anti-Ro Ab but she has no evidence of active inflammatory arthritis that might be associated with her positive Sjogren's antibody EMG and NCV done back in late December 2019 revealed normal findings with no evidence of nerve entrapment or carpal tunnel syndrome; patient also had EMG done at [facility] in September 2018 that also came out with normal results She has been seen and evaluated at [facility] [place] a couple of years ago and they recommended increasing her dose of NSAIDs and to follow up with them only on a PRN basis She is also again encouraged to continue with frequent and regular hand exercises to help manage her hand stiffness and pain She is now following up with [facility] Rheumatology regularly (11) Chronic constipation: Code(s): K59.09 - Other constipation Category: Medical Plan: Patient is again encouraged to increase her oral fluids and dietary fiber She is currently doing well on Senna 8.6 mg 2 tablets QD and Benefiber supplements Follow up with GI as scheduled (12) Anetoderma: Code(s): L90.8 - Other atrophic disorders of skin Category: Medical Plan: Follow up with dermatology as scheduled (13) Depression: Code(s): F32.9 - Major depressive disorder, single episode, unspecified Category: Medical Qualifiers: Depression Type: major depressive disorder Major depression recurrence: recurrent Active/Remission status: currently active Major depression episode severity: unspecified Qualified Code(s): F33.9 - Major depressive disorder, recurrent, unspecified Plan: She was on Venlafaxine 75 mg QD previously but it appears she came off her med sometime early last year Follow up with psychiatry as scheduled Patient also sees/talks to her therapist regularly (14) Overweight (BMI 25.0-29.9): Code(s): E66.3 - Overweight Category: Medical Plan: Reinforced diet; exercise and weight loss are impractical at present given her recurrent respiratory symptoms and physical issues, which limits her activity level and exercise capacity significantly Plan Follow up in 4 months Orders: Orders XR elbow LT min 3V 04/09/24 M25.522 - Pain in left elbow XR chest 2V 04/09/24 J98.8 - Other specified respiratory disorders, R06.00 - Dyspnea, unspecified Comprehensive [place]. Panel Fast 04/09/24 E78.00 - Pure hypercholesterolemia, unspecified, M79.2 - Neuralgia and neuritis, unspecified TSH reflex Free T4 04/09/24 E78.00 - Pure hypercholesterolemia, unspecified, M79.2 - Neuralgia and neuritis, unspecified Vitamin B12 and Folate 04/09/24 E53.8 - Deficiency of other specified B group vitamins, M79.2 - Neuralgia and neuritis, unspecified Vitamin D 25-OH Total 04/09/24 E55.9 - Vitamin D deficiency, unspecified, M79.2 - Neuralgia and neuritis, unspecified XR shoulder LT min 2V 04/09/24 M25.512 - Pain in left shoulder, M79.2 - Neuralgia and neuritis, unspecified XR wrist LT min 3V 04/09/24 M25.532 - Pain in left wrist Complete Blood Count Auto Diff 04/09/24 D64.9 - Anemia, unspecified, M79.2 - Neuralgia and neuritis, unspecified Lipid Panel 04/09/24 E78.00 - Pure hypercholesterolemia, unspecified, M79.2 - Neuralgia and neuritis, unspecified UA CC w/rflx Micro + Cult 04/09/24 M79.2 - Neuralgia and neuritis, unspecified, R30.0 - Dysuria Erythrocyte Sedimentation Rate 04/09/24 M79.2 - Neuralgia and neuritis, unspecified, M79.7 - Fibromyalgia C Reactive Protein 04/09/24 M79.2 - Neuralgia and neuritis, unspecified
== END 2024-04-09 09:45 | disposition home or self-care (01) ==
PROVIDERS: PCP Internal Medicine; Visit Provider Internal Medicine
DX: J41.1 Mucopurulent chronic bronchitis (principal); E78.00 Pure hypercholesterolemia, unspecified; D80.2 Selective deficiency of immunoglobulin A [IgA]; Z88.9 Allergy status to unspecified drugs, medicaments and biological substances; D64.9 Anemia, unspecified; I83.893 Varicose veins of bilateral lower extremities with other complications; M51.360 Other intervertebral disc degeneration, lumbar region with discogenic back pain only; M47.812 Spondylosis without myelopathy or radiculopathy, cervical region; M79.2 Neuralgia and neuritis, unspecified; M19.041 Primary osteoarthritis, right hand; M19.042 Primary osteoarthritis, left hand; F33.9 Major depressive disorder, recurrent, unspecified; K59.09 Other constipation; L90.8 Other atrophic disorders of skin; E66.3 Overweight

== ENCOUNTER 2024-04-09 08:44 | Outpatient (REF) | payer OTHER, SELFPAY ==
--- NOTE | ~2024-04-09 | XR_ITS ---
EXAMINATION: XR WRIST 3 OR MORE VIEWS LEFT HISTORY: M25.532 - Pain in left wrist COMPARISON: Comparison is made with the prior examination of the left hand dated 12/04/2020. FINDINGS: Four views of the left wrist including a scaphoid view are submitted. Osseous mineralization is normal. There is no fracture or dislocation. The joint spaces are preserved. The soft tissues are unremarkable. XR/XR wrist LT min 3V IMPRESSION: Unremarkable examination of the left wrist. Electronically signed by: Florian Tobar MD 04/12/2024 02:58 PM [facility]
--- NOTE | ~2024-04-09 | XR_ITS ---
EXAMINATION: XR ELBOW 3 VIEWS LEFT HISTORY: M25.522 - Pain in left elbow COMPARISON: There are no prior studies available for comparison. FINDINGS: Three views of the left elbow are submitted. Osseous mineralization is normal. There is no fracture or dislocation. The joint spaces are preserved. The soft tissues are unremarkable. XR/XR elbow LT min 3V IMPRESSION: Unremarkable examination of the left elbow. Electronically signed by: Florian Tobar MD 04/12/2024 11:33 AM [facility]
--- NOTE | ~2024-04-09 | XR_ITS ---
EXAMINATION: XR SHOULDER 2 OR MORE VIEWS LEFT HISTORY: M25.512 - Pain in left shoulder COMPARISON: There are no prior studies available for comparison. FINDINGS: Three views of the left shoulder are submitted. Osseous mineralization is normal. There is no fracture or dislocation. The glenohumeral and acromioclavicular joint spaces are preserved. The soft tissues are unremarkable. XR/XR shoulder LT min 2V IMPRESSION: Unremarkable examination of the left shoulder. Electronically signed by: Florian Tobar MD 04/12/2024 03:00 PM [facility] IDETZ
--- NOTE | ~2024-04-09 | XR_ITS ---
EXAMINATION: XR CHEST CLINICAL INFORMATION: J98.8 - Other specified respiratory disorders COMPARISON: 12/23/2023. TECHNIQUE: 2 views of the chest were obtained. FINDINGS: The cardiac, hilar, and mediastinal contours are normal. The lungs are clear bilaterally. There is no pneumothorax or pleural effusion. There is no focal osseous or soft tissue abnormality. XR/XR chest 2V IMPRESSION: No active disease. Electronically signed by: Man Toledo MD 04/09/2024 10:47 AM JOHN[facility]
[2024-04-09 10:47] LABS: MANUAL DIFF FLAG NO
[2024-04-09 11:05] LABS: Basophils Absolute Auto 0.1 X10*3/uL (0.0-0.2); Basophils Percent Auto 1.2 % (0-2); Eosinophils Absolute Auto 0.3 X10*3/uL (0.0-0.4); Eosinophils Percent Auto 6.8 % (0-4); Hematocrit 35.9 % (37.0-47.0); Hemoglobin 11.7 g/dl (12.0-16.0); Imm Gran Abs Auto 0.01 X10*3/uL (0.00-0.03); Imm Gran Pct Auto 0.2 % (0.0-0.4); Lymphocytes Absolute Auto 1.4 X10*3/uL (1.2-4.9); Lymphocytes Percent Auto 31.9 % (20-40); Mean Corpuscular HGB Conc 32.6 g/dl (31.0-35.0); Mean Corpuscular Hemoglobin 27.4 pg (27.0-33.0); Mean Corpuscular Volume 84.1 fL (80.0-98.0); Mean Platelet Volume 10.3 fL (9.4-12.3); Monocytes Absolute Auto 0.4 X10*3/uL (0.1-1.2); Monocytes Percent Auto 8.7 % (2-11); Neutrophils Absolute Auto 2.2 x10*3/uL (2.0-8.3); Neutrophils Percent Auto 51.2 % (45-73); Platelet Count 256 X10*3/uL (160-400); Red Blood Count 4.27 X10*6/uL (4.20-5.50); Red Cell Distribution Width 13.2 % (11.0-16.0); White Blood Count 4.3 X10*3/uL (4.8-10.8)
[2024-04-09 11:15] LABS: Appearance Urine Clear; Color Urine Yellow; Glucose Urine UA Negative (Negative); Leukocyte Esterase Urine Negative (Negative); Nitrite Urine Negative (Negative); Specific Gravity - Urine 1.025 (1.005-1.025); Urine Blood Negative (Negative); Urine Ketones Negative (Negative); Urine Protein Negative (Neg-Trace)
[2024-04-09 11:42] LABS: Alanine Aminotransferase 25 U/L (0-31); Albumin Level 4.4 g/dL (3.5-5.0); Alkaline Phosphatase 71 U/L (39-117); Anion Gap 9 (12-20); Aspartate Amino Transferase 21 U/L (5-31); Bilirubin Total 0.5 mg/dL (0.0-1.0); Blood Urea Nitrogen 15 mg/dL (9-16); C Reactive Protein < 0.10 mg/dL (< or = 0.50); Calcium 9.2 mg/dL (8.4-10.2); Carbon Dioxide 25 mmol/L (22-29); Chloride 109 mmol/L (96-108); Cholesterol 212 mg/dL (<200); Estimated Glomerular Filt Rate > 60; Glucose Fasting 99 mg/dL (60-99); HDL Cholesterol 62 mg/dL (>40); LDL Cholesterol Calculated 133 mg/dL (<100); Potassium 3.8 mmol/L (3.3-5.1); Sodium 139 mmol/L (135-145); Total Protein 8.1 g/dL (6.5-8.0); Triglycerides 87 mg/dL (<150)
[2024-04-09 11:48] LABS: Erythrocyte Sedimentation Rate 13 MM/HR (0-20)
[2024-04-09 12:01] LABS: TSH reflex Free T4 2.42 uIU/mL (0.32-4.0); Vitamin D 25-OH Total 47.5 ng/mL (>30)
[2024-04-09 12:19] LABS: Folate 16.4 ng/mL (> or = 4.0); Vitamin B12 736 pg/mL (200-900)
== END 2024-04-09 08:45 | disposition home or self-care (01) ==
LOC: HO.XRAY 08:44
PROVIDERS: PCP Internal Medicine; Visit Provider Internal Medicine
DX: J41.1 Mucopurulent chronic bronchitis (principal); E78.00 Pure hypercholesterolemia, unspecified; D80.2 Selective deficiency of immunoglobulin A [IgA]; D64.9 Anemia, unspecified; I83.893 Varicose veins of bilateral lower extremities with other complications; M51.360 Other intervertebral disc degeneration, lumbar region with discogenic back pain only; M47.812 Spondylosis without myelopathy or radiculopathy, cervical region; M79.2 Neuralgia and neuritis, unspecified; M19.041 Primary osteoarthritis, right hand; M19.042 Primary osteoarthritis, left hand; K59.09 Other constipation; L90.8 Other atrophic disorders of skin; F33.9 Major depressive disorder, recurrent, unspecified; E66.3 Overweight; M25.522 Pain in left elbow; J98.8 Other specified respiratory disorders; R06.00 Dyspnea, unspecified; M25.512 Pain in left shoulder; M25.532 Pain in left wrist; M79.7 Fibromyalgia; E53.8 Deficiency of other specified B group vitamins; R30.0 Dysuria; E55.9 Vitamin D deficiency, unspecified; Z91.09 Other allergy status, other than to drugs and biological substances
CPT/HCPCS: 36415; 71046; 73030; 73080; 73110; 80053; 80061; 81003; 82306; 82607; 82746; 84443; 85025; 85652; 86140; 96127; 99212

== ENCOUNTER → 2024-04-09 10:05 | Outpatient (BNV) | payer OTHER, SELFPAY | PROVIDERS: PCP Internal Medicine; Visit Provider Radiology Diagnostic Radiology | DX: J98.8 Other specified respiratory disorders (principal) | CPT/HCPCS: 71046; 73030; 73080; 73110 ==

== ENCOUNTER 2024-06-01 11:40 | Outpatient (AMB) | payer OTHER, SELFPAY ==
[2024-06-01 11:45] VITALS: BP 100/62; PULSE 65; O2SAT 100; BMI 27.8
--- NOTE | 2024-06-01 11:45 | A.OFFVIS_ITS ---
Vital Signs 06/01/24 11:45 Height 5 ft 1 in Weight 147 lb BMI 27.8 BP 100/62 Blood Pressure Location Rt brachial Position Sitting Pulse 65 Pulse Source Doppler Pulse Oximetry (%) 100 Oxygen Delivery Method Room Air Intake Visit Reasons: asthma Senior Operations Analyst Required: Yes Senior Operations Analyst Name: Chelsey EpsteinZullyRachael Allergies No Known Allergies Allergy (Verified 04/09/24 09:28) HPI HPI asthma: Details: 58-year-old lady, nonsmoker, followed for underlying severe persistent allergic asthma, pulmonary nodules, and severe IgA deficiency. Her SS/Ro antibody is positive.?She was tried on Fasenra with no significant response.? She continues on Hizentra with baseline significantly improved control of her underlying recurrent mucopurulent bronchitis.? Although, she still continues with intermittent cough and productive of whitish sputum. She also continues on Breo and albuterol MDI. Furthermore Incruse has been added by her allergies. Patient has seen [facility] for 2nd opinion and is concerned that she is only being treated for asthma there. She is interested in another evaluation. [facility] Medical History (Updated 06/01/24 @ 13:42 by Owen Hayes MD) Multiple allergies Lumbar degenerative disc disease Pure hypercholesterolemia Anxiety Lump of skin Chronic constipation Fibromyalgia SS-A antibody positive Blood D-dimer assay positive Chronic pain syndrome Sacroiliitis Spondylosis without myelopathy or radiculopathy, cervical region Myofascial pain syndrome BARRON positive Depression Overweight (BMI 25.0-29.9) Asthma Neck pain Anemia Left lumbar radiculopathy Primary osteoarthritis of hands, bilateral Surgical History Hx of colonoscopy History of esophagogastroduodenoscopy (EGD) History of total abdominal hysterectomy Family History Father Myocardial infarction Stomach cancer Mother Myocardial infarction Osteoporosis Diabetes Brother HIV (human immunodeficiency virus infection) Sister In good health Social History Housing: Apartment Alcohol intake: never Patient Tobacco Use Status: Never used Tobacco Tobacco use type: Cigarette e-Cigarette/Vaping Use: Never Used Second Hand Smoke Exposure: No service: No Current occupational status: retired and disabled Cognitive needs: No Hearing needs: No Vision needs: Yes Review of Systems Const Denies daytime sleepiness, Denies excessive sweating, Denies fatigue, Denies fever(s), Denies lethargy, Denies malaise, Denies night sweats, Denies snoring and Denies weight loss Eyes Denies blurry vision and Denies itchy eyes ENT Denies nasal congestion, Denies post nasal drip, Denies sinus pain, Denies sinus pressure and Denies other ( Thrush) Card Denies chest pain, Denies pedal edema, Denies dyspnea, Denies orthopnea and Denies paroxysmal nocturnal dyspnea Resp Reports cough, Denies hemoptysis, Reports excessive phlegm production, Denies dyspnea, Denies snoring and Denies wheezing GI Denies abdominal pain and Denies heartburn Musc Denies myalgias, Denies arthralgias and Denies joint swelling Skin/Breast Denies rash Neuro Denies memory loss and Denies seizure-like activity Psych Denies abnormal sleep pattern, Denies anxiety and Denies memory loss Endo Denies excessive sweating, Denies fatigue and Denies heat intolerance Toño/Lymph Denies easy bruising Aller/Immun Denies itchy eyes, Denies seasonal rhinorrhea and Denies wheezing Physical Exam Vital Signs: Last Vital Signs Pulse 65 06/01/24 11:45 BP 100/62 06/01/24 11:45 Pulse Ox 100 06/01/24 11:45 Oxygen Delivery Method Room Air 06/01/24 11:45 BMI result Body Mass Index 27.8 Const General: no acute distress and alert Nutritional Appearance: not obese Orientation/consciousness: Other orientation findings ( oriented) HEENT Head: Yes atraumatic Eyes General: appearance normal, both eyes and all related structures Sclerae: sclerae normal EOM: EOMs intact bilaterally Neck Neck: Yes supple Lymphatic: no lymphadenopathy noted Resp Effort & Inspection: normal respiratory effort and no use of accessory muscles Auscultation: clear to auscultation bilaterally Cardio Rate: regular rate Rhythm: regular rhythm Heart sounds: no gallops, no murmurs and no rubs Skin General skin exam: other ( warm) Extrem General: No clubbing, No cyanosis and No edema Assessment & Plan Assessment & Plan (1) IgA deficiency, selective: Comment: Code(s): D80.2 - Selective deficiency of immunoglobulin A [IgA] Category: Medical (2) Asthma: Code(s): J45.909 - Unspecified asthma, uncomplicated Category: Medical Qualifiers: Asthma severity: severe Asthma persistence: persistent Asthma complication type: with acute exacerbation Qualified Code(s): J45.51 - Severe persistent asthma with (acute) exacerbation (3) Bronchiectasis: Code(s): J47.9 - Bronchiectasis, uncomplicated Category: Medical (4) Bronchitis, mucopurulent recurrent: Code(s): J41.1 - Mucopurulent chronic bronchitis Category: Medical Plan Recurrent bronchitis with underlying mild bronchiectasis with selective IgA deficiency with improved frequency on subQ IG. Will continue current regimen. Underlying asthma with reasonable control on Breo/Incruse and albuterol MDI. Will continue current regimen. Patient is also seeing an escort service attendant and another banquet waiter/waitress. Patient wants another opinion about her pulmonary condition, will refer to [facility]. Orders: Referrals Pulmonology Referral D80.2 - Selective deficiency of immunoglobulin A [IgA], J41.1 - Mucopurulent chronic bronchitis, J45.51 - Severe persistent asthma with (acute) exacerbation, J47.9 - Bronchiectasis, uncomplicated Coding Level of Care Code New Pt Level 5 (15101) Complex EM visit Add On G2211 Diagnoses IgA deficiency, selective D80.2 Severe persistent asthma with acute exacerbation J45.51 Asthma severity: severe Asthma persistence: persistent Asthma complication type: with acute exacerbation Bronchiectasis J47.9 Bronchitis, mucopurulent recurrent J41.1
== END 2024-06-01 12:09 | disposition home or self-care (01) ==
LOC: HO.HPS 11:41
PROVIDERS: PCP Internal Medicine; Visit Provider Internal Medicine Pulmonary Disease
DX: D80.2 Selective deficiency of immunoglobulin A [IgA] (principal); J45.51 Severe persistent asthma with (acute) exacerbation
CPT/HCPCS: 99214; G2211

== ENCOUNTER → 2024-06-01 11:40 | Outpatient (BNVA) | payer OTHER, SELFPAY | PROVIDERS: PCP Internal Medicine; Visit Provider Internal Medicine Pulmonary Disease | DX: J45.51 Severe persistent asthma with (acute) exacerbation (principal); J47.9 Bronchiectasis, uncomplicated; J41.1 Mucopurulent chronic bronchitis; D80.2 Selective deficiency of immunoglobulin A [IgA] | CPT/HCPCS: 99212 ==

== ENCOUNTER 2024-06-22 13:26 | Outpatient (AMB) | payer OTHER, SELFPAY ==
[2024-06-22 13:28] VITALS: BP 137/77; PULSE 66; O2SAT 100; BMI 28.3
--- NOTE | 2024-06-22 13:28 | MHC.OFFVIS ---
Vital Signs 06/22/24 13:28 Height 5 ft 1 in Weight 150 lb BMI 28.3 BP 137/77 Blood Pressure Location Rt brachial Position Sitting Pulse 66 Pulse Source Doppler Pulse Oximetry (%) 100 Oxygen Delivery Method Room Air Comment pt refused weight- verbal weight Intake Visit Reasons: Asthma Allergies No Known Allergies Allergy (Verified 06/22/24 13:33) HPI HPI Asthma: Details: 58-year-old lady, nonsmoker, followed for underlying severe persistent allergic asthma, mild bilateral bronchiectasis and severe IgA deficiency. Her SS/Ro antibody is positive.?She was tried on Fasenra with no significant response.? She continues on Hizentra with baseline significantly improved control of her underlying recurrent mucopurulent bronchitis, though recently she has been missing some of her injection. Her asthma symptoms has been controlled on Breo and albuterol MDI when she uses them consistently. Patient's wafer abrading machine tender also added Incruse.? Patient is also followed by [facility] for 2nd opinion, she has been referred to [facility] pulmonary for 3rd opinion. Today patient presents with her daughter for discussion of her pulmonary diagnoses. [facility] Medical History (Updated 06/01/24 @ 13:42 by Owen Hayes MD) Multiple allergies Lumbar degenerative disc disease Pure hypercholesterolemia Anxiety Lump of skin Chronic constipation Fibromyalgia SS-A antibody positive Blood D-dimer assay positive Chronic pain syndrome Sacroiliitis Spondylosis without myelopathy or radiculopathy, cervical region Myofascial pain syndrome BARRON positive Depression Overweight (BMI 25.0-29.9) Asthma Neck pain Anemia Left lumbar radiculopathy Primary osteoarthritis of hands, bilateral Surgical History Hx of colonoscopy History of esophagogastroduodenoscopy (EGD) History of total abdominal hysterectomy Family History Father Myocardial infarction Stomach cancer Mother Myocardial infarction Osteoporosis Diabetes Brother HIV (human immunodeficiency virus infection) Sister In good health Social History Housing: Apartment Alcohol intake: never Patient Tobacco Use Status: Never used Tobacco Tobacco use type: Cigarette e-Cigarette/Vaping Use: Never Used Second Hand Smoke Exposure: No service: No Current occupational status: retired and disabled Cognitive needs: No Hearing needs: No Vision needs: Yes Physical Exam Vital Signs: Last Vital Signs Pulse 66 06/22/24 13:28 BP 137/77 06/22/24 13:28 Pulse Ox 100 06/22/24 13:28 Oxygen Delivery Method Room Air 06/22/24 13:28 BMI result Body Mass Index 28.3 Assessment & Plan Assessment & Plan (1) Environmental allergies: Code(s): Z91.09 - Other allergy status, other than to drugs and biological substances Category: Medical (2) Bronchitis, mucopurulent recurrent: Code(s): J41.1 - Mucopurulent chronic bronchitis Category: Medical (3) Bronchiectasis: Code(s): J47.9 - Bronchiectasis, uncomplicated Category: Medical (4) Asthma: Code(s): J45.909 - Unspecified asthma, uncomplicated Category: Medical Qualifiers: Asthma severity: severe Asthma persistence: persistent Asthma complication type: with acute exacerbation Qualified Code(s): J45.51 - Severe persistent asthma with (acute) exacerbation Plan Patient has underlying diagnoses including IgE deficiency, bilateral basilar bronchiectasis, recurrent mucopurulent bronchitis, and asthma were discussed including their effect on patient's overall respiratory health. Patient expressed better understanding of her underlying respiratory diagnoses and treatments. Continue current treatment regimen including Hizentra, Breo, albuterol MDI. Medications: New albuterol sulfate 90 mcg/actuation 2 puffs inhalation Q4-6H PRN 1 ea 6RF shortness of breath or wheezing Refilled fluticasone furoate-vilanterol 200-25 mcg/dose (Breo Ellipta) 1 inh inhalation DAILY 30 days 60 ea 6RF ASTHMA/COPD Discontinued albuterol sulfate 90 mcg/actuation (Ventolin HFA) Discontinued Reason: Duplicate 2 puffs inhalation Q6H PRN 1 ea 4RF for wheezing J45.40 - Moderate persistent asthma, uncomplicated Coding Level of Care Code Est Pt Level 4 (66758) Complex EM visit Add On G2211 Diagnoses Environmental allergies Z91.09 Bronchitis, mucopurulent recurrent J41.1 Bronchiectasis J47.9 Severe persistent asthma with acute exacerbation J45.51 Asthma severity: severe Asthma persistence: persistent Asthma complication type: with acute exacerbation
== END 2024-06-22 14:00 ==
LOC: HO.HPS 13:27
PROVIDERS: PCP Internal Medicine; Visit Provider Internal Medicine Pulmonary Disease
DX: Z91.09 Other allergy status, other than to drugs and biological substances (principal); J41.1 Mucopurulent chronic bronchitis; J47.9 Bronchiectasis, uncomplicated; J45.51 Severe persistent asthma with (acute) exacerbation
CPT/HCPCS: 99214; G2211

== ENCOUNTER → 2024-06-22 13:26 | Outpatient (BNVA) | payer OTHER, SELFPAY | PROVIDERS: PCP Internal Medicine; Visit Provider Internal Medicine Pulmonary Disease | DX: J45.51 Severe persistent asthma with (acute) exacerbation (principal); J41.1 Mucopurulent chronic bronchitis; J47.9 Bronchiectasis, uncomplicated; Z91.09 Other allergy status, other than to drugs and biological substances | CPT/HCPCS: 99212 ==

== ENCOUNTER → 2024-07-13 09:09 | Outpatient (REF) | payer OTHER, SELFPAY | LOC: HO.SL 09:09 | PROVIDERS: PCP Internal Medicine; Visit Provider Internal Medicine | DX: G47.33 Obstructive sleep apnea (adult) (pediatric) (principal) | CPT/HCPCS: 95806 ==

== ENCOUNTER → 2024-07-13 09:19 | Outpatient (BNV) | payer OTHER, SELFPAY | PROVIDERS: PCP Internal Medicine; Visit Provider Internal Medicine | DX: R06.83 Snoring (principal); G47.10 Hypersomnia, unspecified | CPT/HCPCS: 95806 ==

== ENCOUNTER → 2024-08-18 09:11 | Outpatient (BNVA) | payer OTHER, SELFPAY | PROVIDERS: PCP Internal Medicine; Visit Provider Internal Medicine | DX: Z13.89 Encounter for screening for other disorder (principal) ==

== ENCOUNTER 2024-12-02 12:21 | Outpatient (AMB) | payer OTHER, SELFPAY ==
--- NOTE | 2024-12-02 12:27 | MHC.PC.OV ---
Vital Signs 12/02/24 12:29 Height 5 ft 1 in Weight 145 lb BMI 27.4 BP 110/76 Blood Pressure Location Lt brachial Position Sitting Pulse 58 Pulse Source Pulse Oximeter Pulse Oximetry (%) 96 Oxygen Delivery Method Room Air Intake Visit Reasons: follow up Intake Note: Patient states that she has been dealing with SOB. She feels as if she gets upset, she can not catch her breath. [place] Required: No Accompanied by: Self / Same As Patient Allergies No Known Allergies Allergy (Verified 12/02/24 12:42) Medication List - Last Reconciled 12/02/24 by Charlie Brock MD albuterol sulfate 90 mcg/actuation 2 puffs inhalation Q4-6H PRN arm brace (Wrist Brace Medium) use nightly azithromycin For 250 mg dose pack: take 500 mg today (day 1), then 250 mg for 4 days (days 2-5) PO cetirizine 10 mg PO DAILY diclofenac sodium 75 mg PO BID fluticasone furoate-vilanterol 200-25 mcg/dose (Breo Ellipta) 1 inh inhalation DAILY 30 days immun glob G(IgG)-pro-IgA 0-50 4 gram/20 mL (20 %) (Hizentra) 7,000 mL subcut QWEEK ketotifen fumarate 0.025%(0.035%) drps ophthalmic (eye) meclizine 25 mg PO TID PRN 30 days prednisone 40 mg (2 x 20 mg) PO DAILY umeclidinium 62.5 mcg/actuation (Incruse Ellipta) 1 inh inhalation DAILY 30 days Tobacco use date assessed: 12/02/24 Dental Screening Dental Screen Date: 12/02/24 Did you have a dental visit in the last 12 months?: Yes Did you have a dental problem in the last 6 months where you did not have access to dental care?: No Was dental information given to patient?: Patient has dentist HPI follow up HPI Details Patient comes in today for her follow up visit She reports that she has been experiencing recurrent shortness of breath over the past few weeks Also relates experiencing on and off episodes wherein her face would suddenly feel flushed and her heart feels like it is racing - notes that these tend to occur more often after eating She is very concerned and anxious that she may have some underlying heart disease due to her current symptoms despite negative cardiac and pulmonary evaluations recently and she is insistent that she be sent for additional testing for further evaluation Patient was just seen by pulmonary at the [facility] to establish care last week She does not feel that anxiety is causing her symptoms but admits that it may be making her feel much worse than she should be States that she has had menopausal symptoms, including hot flashes, in the past but does not feel that these are related to her current symptoms she denies experiencing any menopausal symptoms lately She denies any headaches or dizziness Denies any exertional chest pains No nausea/vomiting, no abdominal pain No change in bowel habits noted She has no follow up labs done since her last visit here in March 2024 [facility] Medical History (Updated 12/02/24 @ 12:52 by Charlie Brock MD) Multiple allergies Lumbar degenerative disc disease Pure hypercholesterolemia Anxiety Lump of skin Chronic constipation Fibromyalgia SS-A antibody positive Blood D-dimer assay positive Chronic pain syndrome Sacroiliitis Spondylosis without myelopathy or radiculopathy, cervical region Myofascial pain syndrome BARRON positive Depression Overweight (BMI 25.0-29.9) Asthma Neck pain Anemia Left lumbar radiculopathy Primary osteoarthritis of hands, bilateral Surgical History Hx of colonoscopy History of esophagogastroduodenoscopy (EGD) History of total abdominal hysterectomy Family History Father Myocardial infarction Stomach cancer Mother Myocardial infarction Osteoporosis Diabetes Brother HIV (human immunodeficiency virus infection) Sister In good health Social History Housing: Apartment Alcohol intake: never Patient Tobacco Use Status: Never used Tobacco Tobacco use type: Cigarette e-Cigarette/Vaping Use: Never Used Second Hand Smoke Exposure: No service: No Current occupational status: retired and disabled Cognitive needs: No Hearing needs: No Vision needs: Yes Questionnaire PHQ-9 Over the last 2 weeks, how often have you been bothered by any of the following problems? 1. Little interest or pleasure in doing things: not at all 2. Feeling down, depressed, or hopeless: not at all 3. Trouble falling or staying asleep, or sleeping too much: not at all 4. Feeling tired or having little energy: not at all 5. Poor appetite or overeating: not at all 6. Feeling bad about yourself - or that you are a failure or have let yourself or your family down: not at all 7. Trouble concentrating on things, such as reading the newspaper or watching television: not at all 8. Moving or speaking so slowly that other people could have noticed. Or the opposite - being so fidgety or restless that you have been moving around a lot more than usual: not at all 9. Thoughts that you would be better off or of hurting yourself in some way: not at all Total score: 0 Depression Screening Interpretation: Negative (is seeing therapist/psychiatrist) Depression Screening Done: Yes 06219 - PHQ-9 Billing: Yes Source: Developed by Drs. Florian Cr, Keyla Taveras, Bautista Dominique and colleagues, with an educational luz maria from [employer]. Thrive Questionnaire Date Thrive assessed: 12/02/24 I am a: Patient What is your living situation today?: I have a steady place to live Within the past 12 months, did the food you bought not last and you didn't have the money to get more?: Often true Within the past 12 months, did you worry whether your food would run out before you got money to buy more?: I choose not to answer this question Do you have trouble paying for medicines?: No Do you have trouble getting transportation to medical appointments?: No Do you have trouble paying your heating and electricity bill?: No Do you have trouble taking care of your child, family member or friend?: No Do you have trouble with day-to-day activities such as bathing, preparing meals, shopping, managing finances, etc.?: Yes Are you currently unemployed and looking for a job?: No Are you interested in more education?: No Please select the resources that you would like help with: None Currently or been in a relationship where the following occur: I choose not to answer THRIVE Score: 1 AUDIT C Alcohol Use Questionnaire (AUDIT-C) 1. How often do you have a drink containing alcohol?: Monthly or less 2. How many drinks containing alcohol do you have on a typical day when you are drinking?: 1 or 2 3. How often do you have six or more drinks on one occasion?: Never Total Score: 1 Score Reviewed/Action Taken: Yes OPHELIA-7 AMB Questionnaire OPHELIA-7 Date OPHELIA - 7 assessed: 12/02/24 Feeling nervous, anxious, or on edge: 0 = Not at all Not being able to stop or control worryin = Not at all Worrying too much about different things: 0 = Not at all Trouble relaxin = Not at all Being so restless that it is hard to sit still: 0 = Not at all Becoming easily annoyed or irritable: 0 = Not at all Feeling afraid as if something awful might happen: 0 = Not at all Total OPHELIA-7 score (0-4 normal; 5-9 mild; 10-14 moderate; 15-21 severe): 0 Source: Developed by Drs. Florian Cr, Keyla Taveras, Bautista Dominique and colleagues, with an educational luz maria from [employer]. Review of Systems Const Denies chills, Reports fatigue, Denies fever(s) and Denies headache(s) ENT Denies dysphagia, Denies dizziness, Denies otalgia, Denies headache(s), Reports neck pain, Denies odynophagia and Denies sore throat Card Denies chest pain, Denies palpitations, Reports dyspnea on exertion and Reports orthopnea (lately) Resp Reports chest congestion (recurrent - chest feels tight often), Reports cough (on and off, with scanty thick whitish phlegm at times), Denies hemoptysis, Reports dyspnea on exertion and Denies wheezing GI Denies abdominal pain, Denies constipation, Denies dysphagia, Denies diarrhea, Denies nausea, Denies odynophagia and Denies vomiting Denies difficulty voiding, Denies nocturia, Denies dysuria and Denies urinary urgency Musc Reports back pain (over the lower back), Reports arthralgias (involving multiple joints, including the hands/fingers), Reports neck pain and Reports tingling (on and off in the left upper extremity) Skin/Breast Denies rash Neuro Denies dizziness, Denies headache(s) and Reports tingling (on and off in the left upper extremity) Psych Reports anxiety Endo Reports fatigue and Denies palpitations Aller/Immun Denies wheezing Physical exam (Primary Care) Vital Signs: Last Vital Signs Pulse 58 12/02/24 12:29 BP 110/76 12/02/24 12:29 Pulse Ox 96 12/02/24 12:29 Oxygen Delivery Method Room Air 12/02/24 12:29 BMI result Body Mass Index 27.4 Tobacco/Smoking Status: Tobacco use Status Tobacco use date assessed 12/02/24 12/02/24 12:36 Patient Tobacco Use Status Never used Tobacco 12/02/24 12:36 Tobacco use type Cigarette 12/02/24 12:36 e-Cigarette/Vaping Use Never Used 12/02/24 12:36 PHQ-9: PHQ-9 Score PHQ-9: Total score 0 12/02/24 12:55 Depression Screening Interpretation: Negative (is seeing therapist/psychiatrist) Thrive Assessment: Date of Thrive Assessment Date Thrive assessed 12/02/24 12/02/24 12:36 Currently or been in a relationship where the following occur: I choose not to answer Const General: no acute distress and alert HENMT Ears: TM's normal bilaterally and EAC's normal Throat: Yes posterior oropharynx normal and Yes tonsils normal (no TP congestion noted) Neck Neck: Yes supple and No lymphadenopathy Thyroid: Thyroid normal Resp Auscultation: no rales, rhonchi (occasional) throughout, no wheezes and diminished lung sounds (slightly) bilateral Cardio Rate: regular rate Rhythm: regular rhythm Heart sounds: no murmurs GI Palpation (GI): Soft to palpation and nontender Auscultation: normal bowel sounds General: Yes no CVA tenderness Back/Spine/Pelvis Back: no CVA tenderness Cervical Spine: No Cervical spine tenderness Thoracic/Lumbar Spine: lumbar spinal tenderness (mild) Skin Rashes: no rashes Extrem Other: (+) prominent varicose veins over both lower extremities; no thrombosis noted General: Yes no clubbing, cyanosis or edema Coding Level of Care Code Est Pt Level 4 (51239) Diagnoses Bronchitis, mucopurulent recurrent J41.1 Exertional dyspnea R06.09 Pure hypercholesterolemia E78.00 IgA deficiency, selective D80.2 Multiple allergies Z88.9 Anemia, unspecified type D64.9 Anemia type: unspecified type Varicose veins of bilateral lower extremities with other complications I83.893 Varicose vein complication: other Degeneration of intervertebral disc of lumbar region with discogenic back pain M51.360 Disc-related pain type: discogenic back pain only Spondylosis without myelopathy or radiculopathy, cervical region M47.812 Primary osteoarthritis of both hands M19.041; M19.042 Osteoarthritis type: primary Chronic constipation K59.09 Anxiety F41.9 Episode of recurrent major depressive disorder, unspecified depression episode severity F33.9 Depression Type: major depressive disorder Major depression recurrence: recurrent Active/Remission status: currently active Major depression episode severity: unspecified Overweight (BMI 25.0-29.9) E66.3 Additional Codes PHQ-9 - 81523 - PHQ-9 Billing: Yes ([id number]) Assessment & Plan Assessment & Plan (1) Bronchitis, mucopurulent recurrent: Code(s): J41.1 - Mucopurulent chronic bronchitis Category: Medical Plan: Her respiratory symptoms appear better controlled on Hizentra infusions although patient is still not entirely convinced about this as she feels that her symptoms are still active/recurrent and not adequately controlled Per [facility] Pulmonary report at her last visit with them in June 2024, patient has underlying diagnoses including IgE deficiency, bilateral basilar bronchiectasis, recurrent mucopurulent bronchitis, and asthma and these were discussed with her at her visit, including their effect on her overall respiratory health and that patient then expressed better understanding of her underlying respiratory diagnoses and treatments although she is now again insisting that something else needs to be done as she continues to feel SOB often She asked for a referral to pulmonary (Dr. Rider) at [facility] at her previous visit for a second opinion and it also appears that she was seen by pulmonary at the [facility] in [place] to establish care last week Continue Breo Ellipta 200-25 mcg 1 inhalation QD, Incruse Ellipta 62.5 mcg 1 inhalation QD and Albuterol HFA 2 inhalations Q 6 hours PRN She also uses Duoneb via nebulizer 4 times a day as needed and Tobramycin was added to this by pulmonary recently, to add to her nebulizer solution for 28 days on and then 28 days off alternately Follow up with pulmonary as scheduled (2) Exertional dyspnea: Code(s): R06.09 - Other forms of dyspnea Category: Medical Plan: Per patient's request, will send her for repeat echocardiogram as well as refer her to cardiology for further evaluation of her recurrent respiratory symptoms (3) Pure hypercholesterolemia: Code(s): E78.00 - Pure hypercholesterolemia, unspecified Category: Medical Plan: Her cholesterol levels were still slightly elevated when she last had her labs done in March 2024, with her total cholesterol at 212 mg/dl and her LDL cholesterol at 133 mg/dl Reinforced low cholesterol diet Patient indicates that she wishes to continue avoiding any cholesterol-lowering Rx as much as possible Will recheck her labs and fasting lipids in 3 months for follow up (4) IgA deficiency, selective: Comment: Code(s): D80.2 - Selective deficiency of immunoglobulin A [IgA] Category: Medical Plan: She has been seeing and following up with allergy & immunology in the past but we have not received any correspondence from them since June 2021 She is currently on IV Ig Tx with Hizentra 7000 mg weekly and appears to be doing well - to continue on Hizentra for now under supervision of pulmonary at [facility] (5) Multiple allergies: Code(s): Z88.9 - Allergy status to unspecified drugs, medicaments and biological substances Category: Medical Plan: Continue Cetirizine 10 mg QD PRN Follow up with motor transport inspector as scheduled (6) Anemia: Code(s): D64.9 - Anemia, unspecified Category: Medical Qualifiers: Anemia type: unspecified type Qualified Code(s): D64.9 - Anemia, unspecified Plan: Her H/H were at 11.7 and 35.9 when last checked in March 2024 Will recheck her CBC in 3 months and continue to monitor her CBC regularly (7) Varicose veins of both lower extremities: Code(s): I83.93 - Asymptomatic varicose veins of bilateral lower extremities Category: Medical Qualifiers: Varicose vein complication: other Qualified Code(s): I83.893 - Varicose veins of bilateral lower extremities with other complications Plan: Follow up with vascular surgery as scheduled (8) Lumbar degenerative disc disease: Code(s): M51.36 - Other intervertebral disc degeneration, lumbar region Category: Medical Qualifiers: Disc-related pain type: discogenic back pain only Qualified Code(s): M51.360 - Other intervertebral disc degeneration, lumbar region with discogenic back pain only Plan: X-rays of the lumbar spine done back in October 2019 revealed progressive 1 cm grade 2 anterolisthesis of L5 on S1 in the setting of suspected L5 pars defect Reinforced activity and weight-lifting restrictions to avoid aggravating her lower back symptoms Continue Tramadol 50 mg 2 tablets at a time up to 4 times a day as needed Follow up with pain management as scheduled - states that her low back pain has improved a lot with injection Tx in the past and it has not been bothering her lately (9) Spondylosis without myelopathy or radiculopathy, cervical region: Code(s): M47.812 - Spondylosis without myelopathy or radiculopathy, cervical region Category: Medical Plan: She has been receiving injections into her cervical spine and trapezius muscles from pain management; notes that her neck pain has been stable lately Follow up with [facility] Pain Management as scheduled (10) Osteoarthritis of hands, bilateral: Code(s): M19.041 - Primary osteoarthritis, right hand; M19.042 - Primary osteoarthritis, left hand Category: Medical Qualifiers: Osteoarthritis type: primary Qualified Code(s): M19.041 - Primary osteoarthritis, right hand; M19.042 - Primary osteoarthritis, left hand Plan: X-rays of both hands done in the past showed mild OA changes of the DIP joints Tests done in the past only showed (+) anti-Ro Ab but she has no evidence of active inflammatory arthritis that might be associated with her positive Sjogren's antibody EMG and NCV done back in late December 2019 revealed normal findings with no evidence of nerve entrapment or carpal tunnel syndrome; patient also had EMG done at [facility] in September 2018 that also came out with normal results She has been seen and evaluated at [facility] [place] a couple of years ago and they recommended increasing her dose of NSAIDs and to follow up with them only on a PRN basis She is also again encouraged to continue with frequent and regular hand exercises to help manage her hand stiffness and pain She is now following up with [facility] Rheumatology regularly (11) Chronic constipation: Code(s): K59.09 - Other constipation Category: Medical Plan: Patient is again encouraged to increase her oral fluids and dietary fiber intake She is currently doing well on Senna 8.6 mg 2 tablets QD and Benefiber supplements Follow up with GI as scheduled (12) Anxiety: Comment: PATIENT IS EXTREMELY ANXIOUS AT THIS TIME AND I COULD WITNESS SOME DEGREE OF HYPOVENTILATION. Code(s): F41.9 - Anxiety disorder, unspecified Category: Medical Plan: She was on Venlafaxine previously but came off her medication on her own sometime last year - patient thinks that she has some side effect from the medication She also recalls experiencing side effects from some antidepressants and anxiety Rx in the past, including Citalopram, and appears very hesitant to be started on some anxiety medications again but finally agreed to give Bupropion XL a try Will start her on Bupropion XL 150 mg Q AM for her anxiety (13) Depression: Code(s): F32.9 - Major depressive disorder, single episode, unspecified Category: Medical Qualifiers: Depression Type: major depressive disorder Major depression recurrence: recurrent Active/Remission status: currently active Major depression episode severity: unspecified Qualified Code(s): F33.9 - Major depressive disorder, recurrent, unspecified Plan: She was on Venlafaxine 75 mg QD previously but it appears she came off her med sometime early last year Follow up with psychiatry as scheduled Patient also sees/talks to her therapist regularly (14) Overweight (BMI 25.0-29.9): Code(s): E66.3 - Overweight Category: Medical Plan: Reinforced diet; exercise and weight loss are impractical at present given her recurrent respiratory symptoms and physical issues, which limits her activity level and exercise capacity significantly Plan Follow up in 3 months Orders: Orders Complete Blood Count Auto Diff 3 Months D64.9 - Anemia, unspecified CA echo transthoracic complete 12/02/ R06.09 - Other forms of dyspnea Comprehensive [place]. Panel Fast 3 Months E78.00 - Pure hypercholesterolemia, unspecified Lipid Panel 3 Months E78.00 - Pure hypercholesterolemia, unspecified TSH reflex Free T4 3 Months E78.00 - Pure hypercholesterolemia, unspecified UA CC w/rflx Micro + Cult 3 Months R30.0 - Dysuria Vitamin D 25-OH Total 3 Months E55.9 - Vitamin D deficiency, unspecified Vitamin B12 and Folate 3 Months E53.8 - Deficiency of other specified B group vitamins Referrals Cardiology Referral R06.09 - Other forms of dyspnea Medications: New bupropion HCl XL (Wellbutrin XL) 150 mg PO QAM 30 tabs 3RF 30 days
[2024-12-02 12:29] VITALS: BP 110/76; PULSE 58; O2SAT 96; BMI 27.4
--- OUTSIDE RECORDS SUMMARY | 2024-12-02 16:32 | XMS_ITS | Clinical Summary ---
Author Organization [facility] Address [address] [place] [address] Care Team Providers Care Marketing Database Analyst Name Role Phone Charlie Brock Primary Care Provider [phone] Allergies No known active allergies Medications fluticasone furoate-vilante roL (BREO ELLIPTA) 200-25 mcg/dose blister with device Inhale 1 puff by mouth daily. 4 Active umeclidinium (INCRUSE ELLIPTA) 62.5 mcg/actuation blister with device Inhale 1 puff by mouth daily. 4 Active Ventolin HFA 90 mcg/actuation inhaler Inhale 2 puffs by mouth every 4 hours as needed for wheezing or shortness of breath. 5 Active cetirizine (ZyrTEC) 10 mg tablet Take 10 mg by mouth once a day. 5 Active Hizentra 1 gram/5 mL (20 %) syringe SMARTSI SUB-Q Once a Week 5 Active Active Problems Problem Noted Date Diagnosed Date Bronchiectasis without acute exacerbation 2024 Severe persistent asthma without complication Anxiety 11/26/2024 Gastroesophageal reflux disease without esophagi tis 03/21/2015 Prediabetes 06/21/2014 Overview (11/26/2024): 6.1 a1c 06/20/14 Thyroid dysfunction 06/21/2014 Encounters Date Type Department Care Team Description 11/26/2024 11:30 AM EDT Office Visit [facility] [address] [place] [phone] Information Security Officer: Chano Drake DO Bronchiectasis without acute exacerbation (HCC) (Primary Dx); Severe persistent asthma without complication (HCC); Gastroesophageal reflux disease without esophagitis; Anxiety from Last 3 Months Social History Tobacco Use Types Packs/Day Years Used Date Smoking Tobacco: Never Smokeless Tobacco: Never Tobacco Cessation:Counseling Given: Not Answered Alcohol Use Standard Drinks/Week Comments Yes 0 (1 standard drink = 0.6 oz pur e alcohol) wine, rarely Comments Unknown Sex and Gender Information Value Date Recorded Sex Assigned at Female 07/07/2024 12:00 PM EDT Legal Sex Female 6:42 PM EDT Gender Identity Not on file Sexual Orientation Not on file Last Filed Vital Signs Vital Sign Reading Time Taken Comments Blood Pressure 123/78 11/26/2024 10:55 AM EDT Pulse 51 11/26/2024 10:55 AM EDT Temperature - - Respiratory Rate 18 11/26/2024 10:55 AM EDT Oxygen Saturation 98% 11/26/2024 10:55 AM EDT Inhaled Oxygen Concentration - - Weight 66.2 kg (146 lb) 11/26/2024 10:55 AM EDT Height - - Body Mass Index - - Plan of Treatment Upcoming Encounters Date Type Department Care Team (Late st Contact Info) Description 05/27/2025 10:20 AM EST Follow-Up [facility] [address] [place] [id number] Information Security Officer: Chano Drake DO [address] [place] [id number] Health Maintenance Due Date Last Done Comments Cervical Cancer Screening 1965 Cologuard 1965 Colon Cancer Screening 1965 Colonoscopy 1965 FOBT / Fit Test 1965 HIV Screening 1965 HPV and Pap Smear 1965 Hepatitis C Screening 1965 Pap Smear 1965 Sigmoidoscopy 1965 Hepatitis B Vaccines (1 of 3 - 19+ 3-dose series) 09/22 Pneumococcal Vaccine: 50+ Years (1 of 2 - PCV) 985 DTaP,Tdap,and Td Vaccines (1 - Tdap) 10/17/1987 Mammogram 2005 Zoster Vaccines (1 of 2) 10/17/2015 Alcohol/Substance Use Screening 03/24/2024 Depression Screening and Follow-Up 03/24/2024 Social Drivers of Health Annual Screening 03/24/2024 COVID-19 Vaccine (1 - 2023- season) 2024 Influenza Vaccine (#1) 2024 RSV Vaccine (60+ years old a nd patients) (1 - 1-dose 75+ series) 2040 Insurance [employer] Care Teams Marketing Database Analyst Relationship Specialty Start Date End Date Charlie Brock [address] [place] [address] [place] [id number] PCP - General Internal Medicine 11/26/24
--- OUTSIDE RECORDS SUMMARY | 2024-12-02 16:32 | XMS_ITS | Encounter Summary ---
Author Organization [facility] Address [address] [place] [address] Care Team Providers Care Window Trimmer Apprentice Name Role Phone Vinod Charlie Primary Care Provider [phone] Encounter Details Date Type Department Care Team (Late st Contact Info) Description 07/07/2024 Thomas Golfhart Message [facility] Patient Access Center [address] [place] [address] Mychart, Generic Provider [facility] [place] [phone] Appointment Reminder Social History Tobacco Use Types Packs/Day Years Used Date Smoking Tobacco: Never Assessed Comments Unknown Sex and Gender Information Value Date Recorded Sex Assigned at Female 07/07/2024 12:00 PM EDT Legal Sex Female 6:42 PM EDT Gender Identity Not on file Sexual Orientation Not on file documented as of this encounter Plan of Treatment Upcoming Encounters Date Type Department Care Team (Late st Contact Info) Description 05/27/2025 10:20 AM EST Follow-Up [facility] [address] [place] [address] Process Trainer: Chano Drake DO [address] [place] [address] documented as of this encounter Visit Diagnoses Not on filedocumented in this encounter Care Teams Window Trimmer Apprentice Relationship Specialty Start Date End Date Vinod Charlie [address] [place] [address] [place] [address] PCP - General Internal Medicine 11/26/24 documented as of this encounter
== END 2024-12-02 13:00 | disposition home or self-care (01) ==
LOC: HO.HMCH 12:22
PROVIDERS: PCP Internal Medicine; Visit Provider Internal Medicine
DX: J41.1 Mucopurulent chronic bronchitis (principal); R06.09 Other forms of dyspnea; E78.00 Pure hypercholesterolemia, unspecified; D80.2 Selective deficiency of immunoglobulin A [IgA]; Z88.9 Allergy status to unspecified drugs, medicaments and biological substances; D64.9 Anemia, unspecified; I83.893 Varicose veins of bilateral lower extremities with other complications; M51.360 Other intervertebral disc degeneration, lumbar region with discogenic back pain only; M47.812 Spondylosis without myelopathy or radiculopathy, cervical region; M19.041 Primary osteoarthritis, right hand; M19.042 Primary osteoarthritis, left hand; K59.09 Other constipation; F41.9 Anxiety disorder, unspecified; F33.9 Major depressive disorder, recurrent, unspecified; E66.3 Overweight

== ENCOUNTER → 2024-12-02 12:21 | Outpatient (BNVA) | payer OTHER, SELFPAY | PROVIDERS: PCP Internal Medicine; Visit Provider Internal Medicine | DX: J41.1 Mucopurulent chronic bronchitis (principal); R06.09 Other forms of dyspnea; E78.00 Pure hypercholesterolemia, unspecified; D80.2 Selective deficiency of immunoglobulin A [IgA]; D64.9 Anemia, unspecified; I83.893 Varicose veins of bilateral lower extremities with other complications; M51.360 Other intervertebral disc degeneration, lumbar region with discogenic back pain only; M47.812 Spondylosis without myelopathy or radiculopathy, cervical region; M19.041 Primary osteoarthritis, right hand; M19.042 Primary osteoarthritis, left hand; K59.09 Other constipation; F41.9 Anxiety disorder, unspecified; F33.9 Major depressive disorder, recurrent, unspecified; E66.3 Overweight; Z68.27 Body mass index [BMI] 27.0-27.9, adult; Z79.891 Long term (current) use of opiate analgesic; Z79.899 Other long term (current) drug therapy; Z88.9 Allergy status to unspecified drugs, medicaments and biological substances; Z13.31 Encounter for screening for depression; Z13.39 Encounter for screening examination for other mental health and behavioral disorders | CPT/HCPCS: 96127; 99212 ==

== ENCOUNTER 2024-12-06 09:06 | Outpatient (REF) | payer OTHER, SELFPAY ==
--- OUTSIDE RECORDS SUMMARY | 2024-12-06 10:44 | XMS_ITS | Clinical Summary ---
Author Organization [facility] Address [address] [place] [address] Care Team Providers Care Life Insurance Sales Agent Name Role Phone Charlie Brock Primary Care Provider [phone] Allergies No known active allergies Medications fluticasone [...] Encounters Date Type Department Care Team Description 12/03/2024 Telephone [facility] All[facility] Center [address] [place] [address] Corrugated Box Machine Operator: Marco Antonio Pruitt Telephone Intake, Staff PAC Clinical Questions 11/26/2024 11:30 AM EDT Office Visit [facility] [address] [place] [address] Corrugated Box Machine Operator: Chano Drake DO Bronchiectasis without acute exacerbation [...] Info) Description 05/27/2025 10:20 AM EST Follow-Up [facility] [address] [place] [address] Corrugated Box Machine Operator: Chano Drake DO [address] [place] [address] Health Maintenance Due Date Last Done Comments [...] of Health Annual Screening 03/24/2024 COVID-19 Vaccine ( - season) 2024 Influenza Vaccine (#1) 2024 RSV Vaccine (60+ years old a nd patients) (1 - 1-dose 75+ series) 2040 Insurance [employer]ICA[employer] Care Teams Life Insurance Sales Agent Relationship Specialty Start Date End Date Charlie Brock [address] [place] [address] dr [place] [address] PCP - General Internal Medicine 11/26/24
--- OUTSIDE RECORDS SUMMARY | 2024-12-06 10:44 | XMS_ITS | Encounter Summary ---
Author Organization [facility] Address [address] [place] [address] Care Team Providers Care Oracle Forms Developer Name Role Phone Vinod Charlie Primary Care Provider [phone] Encounter Details Date Type Department Care Team (Late st Contact Info) Description 07/07/2024 DorsaVIhart Message [facility] Patient Access Center [address] [place] [address] Mychart, Generic Provider [facility] [place] [phone] Appointment Reminder Social History Tobacco Use Types [...] Info) Description 05/27/2025 10:20 AM EST Follow-Up [facility]- [facility] Lung and Allergy Center [address] [place] [address] Forensic Medical Examiner: Chano Drake DO [address] [place] [address] documented as of this encounter Visit Diagnoses Not on filedocumented in this encounter Care Teams Oracle Forms Developer Relationship Specialty Start Date End Date Vinod Charlie [address] [place] [address] [place] [address] PCP - General Internal Medicine 11/26/24 documented as of this encounter
--- OUTSIDE RECORDS SUMMARY | 2024-12-06 10:44 | XMS_ITS | Encounter Summary ---
Author Organization [facility] Address [address] [place] [address] Care Team Providers Care Return To Vendor Name Role Phone Charlie Brock Primary Care Provider [phone] Reason for Visit * Reason Comments PAC Clinical Questions Encounter Details Date Type Department Care Team (Late Contact Info) Description 12/03/2024 Telephone [facility] and Allergy Center [address] [place] [address] Vice President Quality Improvement: Marco Antonio Pruitt Telephone Intake, Staff PAC Clinical Questions Social History Tobacco Use Types Packs/Day Years Used Date Smoking Tobacco: Never Smokeless Tobacco: Never Alcohol Use Standard Drinks/Week Comments Yes 0 (1 standard drink = 0.6 oz pur e alcohol) wine, rarely Comments Unknown Sex and Gender Information Value Date Recorded Sex Assigned at Female 07/07/2024 12:00 PM EDT Legal Sex Female 6:42 PM EDT Gender Identity Not on file Sexual Orientation Not on file documented as of this encounter Miscellaneous Notes * Telephone Encounter - Renetta Dudley - 12/03/2024 8:29 AM EDT Copied from [facility] #[id number]. Topic: Clinical - Messages for Clinical Team >> Dec 03, 2024 8:28 AM Renetta Jacome wrote: Pt's referring provider is requesting the notes from pt's last pulmonary appt. Please send over documented in this encounter Plan of Treatment Upcoming Encounters Date Type Department Care Team (Late st Contact Info) Description 05/27/2025 10:20 AM EST Follow-Up [facility] Lung and Allergy Center [address] [place] [address] Vice President Quality Improvement: Chano Drake DO [address] [place] [address] documented as of this encounter Visit Diagnoses Not on filedocumented in this encounter Care Teams Return To Vendor Relationship Specialty Start Date End Date Charlie Brock [address] [place] [address] [place] [address] PCP - General Internal Medicine 11/26/24 documented as of this encounter
== END 2024-12-06 09:07 | disposition home or self-care (01) ==
LOC: HO.LAB 09:06
PROVIDERS: PCP Internal Medicine; Visit Provider Internal Medicine
DX: Z13.89 Encounter for screening for other disorder (principal)

== ENCOUNTER → 2024-12-30 11:13 | Outpatient (REF) | payer OTHER, SELFPAY ==
--- NOTE | 2024-12-30 11:15 | CA_ITS ---
Transthoracic Echocardiogram Patient (Last, First, Middle): Candida Massey, Gender: Female Date of : 1965 Age: 59 Procedure Date: 12/30/2024 Procedure Type: Transthoracic Echocardiogram Location: OP Height: 154.94 cm Weight: 65.77 kg BSA: 1.65 m2 Heart Rate: 50 bpm BP: 110 / 72 mmHg Control Manager: DYANA Referring MD: Charlie Brock MD Teacher Specialist: Mejia Edmond MD Symptoms: R06.09 - Other forms of dyspnea Study Quality: Adequate ECG Rhythm: Bradycardia Conclusions: - 1. Normal LV ejection fraction of 60 65% 2. Trivial aortic regurgitation with mild calcific changes noted in the mitral annulus 3. Normal RV systolic pressure 4. No gross pericardial effusion Findings Left Ventricle Normal left ventricular size, thickness, and systolic function. The visually estimated ejection fraction is between 60-65%. Spectral Doppler is indicative of a normal filling pattern. Right Ventricle Normal right ventricular cavity size and systolic function. Atria The left atrium is likely dilated. There is no evidence of interatrial shunt. The right atrium is normal in size. Aortic Valve Normal aortic valve structure and function. There is no aortic valve stenosis. There is trace (trivial) aortic valve regurgitation. Mitral Valve There is mild anterior mitral leaflet thickening. There is mild mitral annular calcification. There is trace mitral valve regurgitation. There is no mitral valve stenosis. Pulmonic Valve The pulmonic valve was not well visualized. Tricuspid Valve Likely normal tricuspid valve structure and function. There is trace tricuspid valve regurgitation. The right ventricular systolic pressure is normal. The right ventricular systolic pressure is 19 mmHg. Normal right atrial pressure. There is no evidence of pulmonary hypertension. Great Vessels All visible segments of the aorta are normal in size. The pulmonary artery was not well visualized. There is no dilatation of the ascending aorta measuring 3.40 cm. Venous The inferior vena cava is normal in size and collapses greater than 50% with inspiration. Pericardium/Pleural There is no evidence of pericardial effusion. Prior Study Comparison No significant change compared to prior study dated: 04/02/2024. Measurements 2D Linear Measurements IVSd: 0.94 0.6-0.9/0.6-1.0 cm LVIDd: 5.31 3.9-5.3/4.2-5.9 cm LVIDd Index: 3.22 2.4-3.2/2.2-3.1 cm/m2 LVIDs: 3.16 2.0-3.6 cm LVPWd: 1.03 0.7-1.1 cm LA Diam: 3.10 2.7-3.8/3.0-4.0 cm LAIDs Index: 1.88 1.5-2.3 cm/m2 LV Mass: 246.05 67-162/88-224 g LV Mass Index: 149.12 43-95/49-115 g/m2 LVOT Diam: 2.20 3.0+(-)1.3 cm 2D Systolic Function EF 4C: 56.30 >55% EF 2C: 68.30 >55% EF BiP: 62.00 >55% Mitral Valve MV Pk E: 0.76 MV PK A: 0.63 MV Decel Time: 209.00 E/A: 1.20 E'Lateral: 7.62 E'Medial: 7.40 E/E' Med: 10.20 E/E' Lat: 9.90 PHT: 61.00 MVA PHT: 3.61 Decel Crosby: 3.63 Aortic Valve AoV Pk Tani: 1.44 AoV Mn Tani: 0.87 AoV VTI: 0.29 AoV Pk Grad: 8.00 Aov Mn Grad: 4.00 FARTUN Cont.VTI: 2.96 LVOT LVOT Pk Tani: 1.00 LVOT Mn Tani: 0.68 LVOT VTI: 0.23 LVOT Pk Grad: 4.00 LVOT Mn Grad: 2.00 LVOT Diam: 2.20 LVOT Area: 3.80 Diastolic Function MV Pk E: 0.76 MV Pk A: 0.63 E/A: 1.20 E'Medial: 7.40 E/E' Med: 10.20 E' Laterial: 7.62 E/E' Lat: 9.90 Right Ventricle TAPSE (mm): 25.60 TVS' Tani: 12.20 Tricuspid Valve TR Pk Tani: 1.99 TR Pk Grad: 16.00 RA Press: 3.00 RVSP: 19.00 Great Vessels Aorta Sinus of Valsalva: 3.50 2.0-3.5 cm Ao Asc: 3.40 2.1-3.4 cm Ao Arch: 2.70 Ao Desc: 1.30 Pulmonary Veins Pulm Vein S/D 1.90 Pulmonary Valve PV Pk Tani: 0.96 Peak PV Grad: 4.00 [place] Pk Tani: 1.41 Updated in Other Vendor System with Status of Final Mejia Edmond MD electronically signed on 12/30/2024 5:12:59 PM with status of Final
== END ==
LOC: HO.CARD 11:13
PROVIDERS: PCP Internal Medicine; Visit Provider Internal Medicine
DX: R06.09 Other forms of dyspnea (principal)
CPT/HCPCS: 93306

== ENCOUNTER 2025-01-04 10:48 | Outpatient (AMB) | payer OTHER, SELFPAY ==
--- NOTE | 2025-01-04 10:55 | MHC.OFFVIS ---
Vital Signs 01/04/25 10:57 Height 5 ft 1 in Weight 152 lb 8.958 oz BMI 28.8 BP 90/60 Blood Pressure Location Lt brachial Position Sitting Pulse 56 Pulse Source Monitor Intake Visit Reasons: 1 yr fu /sob Upholstery Trimmer Required: No Accompanied by: Self / Same As Patient Allergies No Known Allergies Allergy (Verified 12/02/24 12:42) Medication List - Last Reconciled 01/04/25 by Ki Hinkle MD albuterol sulfate 90 mcg/actuation 2 puffs inhalation Q4-6H PRN arm brace (Wrist Brace Medium) use nightly azithromycin For 250 mg dose pack: take 500 mg today (day 1), then 250 mg for 4 days (days 2-5) PO bupropion HCl XL (Wellbutrin XL) 150 mg PO QAM 30 days cetirizine 10 mg PO DAILY diclofenac sodium 75 mg PO BID fluticasone furoate-vilanterol 200-25 mcg/dose (Breo Ellipta) 1 inh inhalation DAILY 30 days immun glob G(IgG)-pro-IgA 0-50 4 gram/20 mL (20 %) (Hizentra) 7,000 mL subcut QWEEK ketotifen fumarate 0.025%(0.035%) drps ophthalmic (eye) meclizine 25 mg PO TID PRN 30 days prednisone 40 mg (2 x 20 mg) PO DAILY umeclidinium 62.5 mcg/actuation (Incruse Ellipta) 1 inh inhalation DAILY 30 days HPI Comments Details: Candida returns for follow-up. Few months back, she was seen in consultation regarding shortness of breath. At that time, it was felt that it was probably not cardiac. She also has lot of concurrent pulmonary issues including bronchitis, bronchiectasis and asthma. She states she is still feeling short of breath with activity. She also gets some sharp chest pains at different times like during anxiety, stress extra. Sometimes with activity. She would like to get her cardiac status thoroughly checked out as she is concerned if there is something wrong. No previously diagnosed coronary disease or cardiomyopathy. [facility] Medical History Multiple allergies Lumbar degenerative disc disease Pure hypercholesterolemia Anxiety Lump of skin Chronic constipation Fibromyalgia SS-A antibody positive Blood D-dimer assay positive Chronic pain syndrome Sacroiliitis Spondylosis without myelopathy or radiculopathy, cervical region Myofascial pain syndrome BARRON positive Depression Overweight (BMI 25.0-29.9) Asthma Neck pain Anemia Left lumbar radiculopathy Primary osteoarthritis of hands, bilateral Surgical History Hx of colonoscopy History of esophagogastroduodenoscopy (EGD) History of total abdominal hysterectomy Family History Father Myocardial infarction Stomach cancer Mother Myocardial infarction Osteoporosis Diabetes Brother HIV (human immunodeficiency virus infection) Sister In good health Social History Housing: Apartment Alcohol intake: never Patient Tobacco Use Status: Never used Tobacco Tobacco use type: Cigarette e-Cigarette/Vaping Use: Never Used Second Hand Smoke Exposure: No service: No Current occupational status: retired and disabled Cognitive needs: No Hearing needs: No Vision needs: Yes Review of Systems Const Denies chills, Denies fatigue, Denies fever(s), Denies frequent falls, Denies weakness, Denies weight gain and Denies weight loss ENT Denies dizziness Card Reports chest pain, Reports chest pain at rest, Reports chest pain with activity, Denies leg edema, Denies lightheadedness, Denies palpitations, Reports dyspnea, Reports dyspnea on exertion and Reports orthopnea Resp Denies cough, Reports dyspnea and Reports dyspnea on exertion GI Denies hematochezia Musc Denies abnormal gait, Denies muscle weakness, Denies numbness, Denies radiating pain into limb and Denies tingling Neuro Denies abnormal gait, Denies dizziness, Denies frequent falls, Denies numbness, Denies tingling and Denies weakness Endo Denies fatigue and Denies palpitations Physical Exam Vital Signs: Last Vital Signs Pulse 56 01/04/25 10:57 BP 90/60 01/04/25 10:57 BMI result Body Mass Index 28.8 Const General: comfortable and no acute distress Orientation/consciousness: patient oriented x3 HEENT Other: Unremarkable Head: Yes normal to inspection Neck Neck: Yes normal visual inspection Chest Chest palpation & inspection: normal inspection of the chest Resp Auscultation: clear to auscultation bilaterally Cardio Palpation: normal PMI Heart sounds: S1 normal heart sound present, S2 normal heart sound present, no gallops, no murmurs and no rubs GI Palpation (GI): Soft to palpation Back/Spine/Pelvis Other: unremarkable Skin General skin exam: no rashes or lesions noted Neuro General: patient oriented x3 Extrem General: Yes normal to inspection Psych Mental Status: mental status grossly normal Office Procedures EKG Details: EKG with sinus bradycardia at 56/Min; no ischemic changes; [place] [id number], Complete Assessment & Plan Assessment & Plan (1) SOB (shortness of breath): Code(s): R06.02 - Shortness of breath Category: Medical Plan Per Pulmonary notes, described to have severe persistent asthma, bronchiectasis, IgA deficiency. Echocardiogram with LVEF of 60-65%. No significant valvular findings. In the chest CT scan, no pertinent cardiac findings. Overall, suspected shortness of breath and chest pain are most likely pulmonary in nature. Less likely she has obstructive CAD as well. However, she is quite convinced that there may be something wrong with the heart and hence we will clarify definitively with a coronary CTA. We discussed about this today and she would like to proceed. Follow up after testing. Total time spent including review of data, counseling, documentation coordination of care-32 minutes. Orders: Orders CT Cardiac Coronary Angio Today I25.10 - Atherosclerotic heart disease of sitka coronary artery without angina pectoris Coding Level of Care Code Est Pt Level 4 (92977) Complex EM visit Add On G2211 Diagnoses SOB (shortness of breath) R06.02 CPT Codes EKG - CPT: 37403-[id number], Complete ([id number])
[2025-01-04 10:57] VITALS: BP 90/60; PULSE 56; BMI 28.8
--- OUTSIDE RECORDS SUMMARY | 2025-01-04 12:54 | XMS_ITS | Encounter Summary ---
Author Organization [facility] Address [address] [place] [address] Care Team Providers Care Heavy Coil Winder Name Role Phone Vinod Charlie Primary Care Provider [phone] Encounter Details Date Type Department Care Team (Late st Contact Info) Description 07/07/2024 Dashbookhart Message [facility] Patient Access Center [address] [place] [address] Mychart, Generic Provider [facility] [place] [phone] Appointment Reminder Social History Tobacco Use Types [...] Info) Description 05/27/2025 10:20 AM EST Follow-Up [facility] All[facility] [address] [place] [address] Pamphlet Distributor: Chano Drake DO [address] [place] [address] documented as of this encounter Visit Diagnoses Not on filedocumented in this encounter Care Teams Heavy Coil Winder Relationship Specialty Start Date End Date Vinod Charlie [address] [place] [address] [place] [address] PCP - General Internal Medicine 11/26/24 documented as of this encounter
--- OUTSIDE RECORDS SUMMARY | 2025-01-04 12:54 | XMS_ITS | Clinical Summary ---
Author Organization [facility] Address [address] [place] [address] Care Team Providers Care Wood Fence Erector Name Role Phone Charlie Brock Primary Care Provider Allergies No known active allergies Medications fluticasone [...] Type Department Care Team Description 12/03/2024 Telephone [facility] Lung and Allergy Center [address] [place] [address] Pharmaceutical Physician: Marco Antonio Pruitt Telephone Intake, Staff PAC Clinical Questions 11/26/2024 11:30 AM EDT Office Visit [facility] Lung and Allergy [address] [address] Pharmaceutical Physician: Chano Drake DO Bronchiectasis without acute exacerbation (HCC) (Primary Dx); Severe persistent asthma without complication; Gastroesophageal reflux disease without esophagitis; Anxiety from [...] Info) Description 05/27/2025 10:20 AM EST Follow-Up [facility] Lung and Allergy [address] [address] Pharmaceutical Physician: Chano Drake DO [address] [place] [address] Health Maintenance Due Date Last Done Comments [...] Annual Screening 03/24/2024 COVID-19 Vaccine (1 - 2024- season) 2024 Influenza Vaccine (#1) 2024 RSV Vaccine (60+ years old a nd patients) (1 - 1-dose 75+ series) 2040 Insurance [employer] Care Teams Wood Fence Erector Relationship Specialty Start Date End Date Charlie Brock [address] [place] [address] dr Elio Ballard [place] [phone] PCP - General Internal Medicine 11/26/24
--- OUTSIDE RECORDS SUMMARY | 2025-01-04 12:54 | XMS_ITS | Encounter Summary ---
Author Organization [facility] Address [address] [place] [address] Care Team Providers Care Hand Booked Folder And Stitcher Name Role Phone Charlie Brock Primary Care Provider [phone] Reason for Visit * Reason Comments PAC Clinical Questions Encounter Details Date Type Department Care Team (Late Contact Info) Description 12/03/2024 Telephone [facility] All[facility] [address] [place] [address] Medical Lab Technologist: Marco Antonio Pruitt Telephone Intake, Staff PAC [...] - 12/03/2024 8:29 AM EDT Copied from [facility] #[id number]. Topic: Clinical - Messages for Clinical Team >> Dec 03, 2024 8:28 AM Renetta Jacome wrote: Pt's referring provider is requesting the notes from pt's last pulmonary appt. Please send over documented in this encounter Plan of Treatment Upcoming Encounters Date Type Department Care Team (Late st Contact Info) Description 05/27/2025 10:20 AM EST Follow-Up [facility] [address] [place] [address] Medical Lab Technologist: Chano Drake DO [address] [place] [address] documented as of this encounter Visit Diagnoses Not on filedocumented in this encounter Care Teams Hand Booked Folder And Stitcher Relationship Specialty Start Date End Date Charlie Brock [address] [place] [address] [place] [address] PCP - General Internal Medicine 11/26/24 documented as of this encounter
== END 2025-01-04 11:24 | disposition home or self-care (01) ==
LOC: HO.HCS 10:49
PROVIDERS: PCP Internal Medicine; Visit Provider Internal Medicine
DX: R06.02 Shortness of breath (principal)
CPT/HCPCS: 93010; 99214

== ENCOUNTER → 2025-01-04 10:48 | Outpatient (BNVA) | payer OTHER, SELFPAY | PROVIDERS: PCP Internal Medicine; Visit Provider Internal Medicine | DX: R06.02 Shortness of breath (principal); I25.10 Atherosclerotic heart disease of native coronary artery without angina pectoris | CPT/HCPCS: 93005; 99212 ==

== ENCOUNTER 2025-01-18 08:59 | Outpatient (REF) | payer OTHER, SELFPAY ==
--- OUTSIDE RECORDS SUMMARY | 2025-01-18 09:59 | XMS_ITS | Encounter Summary ---
Author Organization [facility] Address [address] [place] [address] Care Team Providers Care Geology Professor Name Role Phone Vinod Charlie Primary Care Provider [phone] Encounter Details Date Type Department Care Team (Late st Contact Info) Description 07/07/2024 Everloophart Message [facility] Patient Access Center [address] [place] [address] Mychart, Generic Provider [facility] [place] [phone] Appointment Reminder Social History Tobacco Use Types [...] Info) Description 05/27/2025 10:20 AM EST Follow-Up [facility] Lung and Allergy Center [address] [place] [address] Systems Program Manager: Chano Drake DO [address] [place] [address] documented as of this encounter Visit Diagnoses Not on filedocumented in this encounter Care Teams Geology Professor Relationship Specialty Start Date End Date Vinod Charlie [address] [place] [address] [place] [address] PCP - General Internal Medicine 11/26/24 documented as of this encounter
--- OUTSIDE RECORDS SUMMARY | 2025-01-18 09:59 | XMS_ITS | Clinical Summary ---
Author Organization [facility] Address [address] [place] [address] Care Team Providers Care Gastroenterology Technician Name Role Phone Charlie Brock Primary Care Provider [phone] Allergies No known active allergies Medications fluticasone [...] Type Department Care Team Description 12/03/2024 Telephone [facility] Lung and Allergy Center [address] [place] [address] Spaghetti Press Helper: Marco Antonio Pruitt Telephone Intake, Staff PAC Clinical Questions 11/26/2024 11:30 AM EDT Office Visit [facility] Lung and Allergy [address] [address] Spaghetti Press Helper: Chano Drake DO Bronchiectasis without acute exacerbation [...] Info) Description 05/27/2025 10:20 AM EST Follow-Up [facility] Lung and Allergy [address] [address] Spaghetti Press Helper: Chano Drake DO [address] [place] [address] Health Maintenance Due Date Last Done Comments [...] 1-dose 75+ series) 2040 [place] [address] Care Teams Gastroenterology Technician Relationship Specialty Start Date End Date Charlie Brock [address] [place] [address] dr Elio Ballard [place] [phone] PCP - General Internal Medicine 11/26/24
[2025-01-18 10:00] LABS: Anion Gap 10 (12-20); Blood Urea Nitrogen 15 mg/dL (9-16); Calcium 9.2 mg/dL (8.4-10.2); Carbon Dioxide 27 mmol/L (22-29); Chloride 109 mmol/L (96-108); Estimated Glomerular Filt Rate > 60; Potassium 4.0 mmol/L (3.3-5.1); Sodium 142 mmol/L (135-145)
== END 2025-01-18 09:00 | disposition home or self-care (01) ==
LOC: HO.LAB 08:59
PROVIDERS: PCP Internal Medicine; Visit Provider Internal Medicine
DX: R06.02 Shortness of breath (principal)
CPT/HCPCS: 36415; 80048